=== PATIENT | female | born 1960 | race Caucasian/White ===

== ENCOUNTER 2021-03-12 18:51 | Inpatient (IN) | payer OTHER ==
[2021-03-12] MEDS ORDERED: HEPARIN NA (PORCINE) 5,000 UNITS/ML 1ML VIAL IVPUSH PRN ×2 (20:24)
[2021-03-12] MEDS ORDERED: ACETAMINOPHEN 325 MG TABLET (FP) PO ONE (20:29)
[2021-03-12] MEDS ORDERED: HEPARIN - 25,000 UNIT in SODIUM CHLORIDE 495 ML IV SCH (20:30)
[2021-03-12] MEDS ORDERED: HEPARIN NA (PORCINE) 5,000 UNITS/ML 1ML VIAL ONE (20:49)
[2021-03-12] MEDS ORDERED: ACETAMINOPHEN 325 MG TABLET (FP) ONE (20:49)
[2021-03-12] MEDS ORDERED: HEPARIN INFUSION - 25,000 UNITS/500 ML INFUS.BAG IVPB ONE (20:50)
[2021-03-12 21:45] LABS: BASO % 0.2 % (0-2.0); HEMATOCRIT 39.2 % (32.4-45.2); HEMOGLOBIN 13.3 GM/dL (10.7-15.3); LYMPH % 13.3 % (8-40); MCH 30.2 pg (25.7-33.7); MCHC 33.8 g/dl (32.0-36.0); MEAN CELL VOLUME 89.3 fl (80-96); MEAN PLT VOLUME 7.2 fl (7.5-11.1); NEUT % 79.5 % (42.8-82.8); PLATELET COUNT 431 K/MM3 (134-434); RDW 14.9 % (11.6-15.6); WHITE BLOOD COUNT 11.5 K/mm3 (4.0-10.0)
[2021-03-12 21:53] LABS: INR 1.07 (0.83-1.09); PROTHROMBIN TIME (PATIENT) 13.1 SEC (9.7-13.0)
[2021-03-12 21:59] LABS: ALBUMIN 3.6 g/dl (3.4-5.0)
[2021-03-12 22:00] LABS: BLOOD UREA NITROGEN 13.3 mg/dL (7-18); CALCIUM 9.4 mg/dL (8.5-10.1)
[2021-03-12 22:03] LABS: CREATININE 0.7 mg/dL (0.55-1.3)
[2021-03-12 22:04] LABS: BILIRUBIN,TOTAL 0.3 mg/dL (0.2-1)
[2021-03-12 22:05] LABS: TOT PROT 7.5 g/dl (6.4-8.2)
[2021-03-12] MEDS ORDERED: ACETAMINOPHEN 1000 MG/100 ML VIAL (NON FORMULARY) IVPB PRN (23:24)
[2021-03-12] MEDS ORDERED: HEPARIN INFUSION - 25,000 UNITS/500 ML INFUS.BAG IVPB SCH (23:34)
[2021-03-13 01:55] VITALS: BMI 28.9
[2021-03-13] MEDS ORDERED: HEPARIN NA (PORCINE) 5,000 UNITS/ML 1ML VIAL ONE (08:04)
[2021-03-13] MEDS ORDERED: LIDOCAINE HCL 1%, 10 MG/ML (20ML VIAL) ONE (08:04)
[2021-03-13] MEDS ORDERED: LIDOCAINE HCL/PF 2% SDV 5ML VIAL ONE (08:10)
[2021-03-13] MEDS ORDERED: ceFAZolin SODIUM 1 GM VIAL ONE ×2 (08:10→08:30)
[2021-03-13] MEDS ORDERED: PROPOFOL 20 ML ONE (08:11)
[2021-03-13] MEDS ORDERED: MIDAZOLAM HCL 2 MG/2 ML SINGLE DOSE VIAL ONE ×2 (08:11)
[2021-03-13 08:30] LABS: ALBUMIN 3.3 g/dl (3.4-5.0); BILIRUBIN,TOTAL 0.3 mg/dL (0.2-1); BLOOD UREA NITROGEN 12.5 mg/dL (7-18); CALCIUM 8.7 mg/dL (8.5-10.1); CREATININE 0.6 mg/dL (0.55-1.3); MAGNESIUM 2.1 mg/dL (1.8-2.4); PHOSPHOROUS 3.8 mg/dL (2.5-4.9); TOT PROT 6.8 g/dl (6.4-8.2)
[2021-03-13] MEDS ORDERED: ceFAZolin SODIUM 1 GM VIAL IVPB ONE (08:30)
[2021-03-13] MEDS ORDERED: APIXABAN 5 MG TABLET ONE (09:31)
[2021-03-13] MEDS ORDERED: ACETAMINOPHEN INJECTION 100 ML IVPB ONE (09:36)
[2021-03-13] MEDS ORDERED: ACETAMINOPHEN 1000 MG/100 ML VIAL (NON FORMULARY) IVPB ONE (09:37)
[2021-03-13] MEDS ORDERED: ONDANSETRON 4 MG/2 ML VIAL IVPUSH PRN (09:50)
[2021-03-13] MEDS ORDERED: amLODIPine BESYLATE 5 MG TABLET (FP) PO SCH (10:00)
[2021-03-13] MEDS ORDERED: LACTATED RINGERS SOLUTION 1,000 ML IV SCH (10:00)
[2021-03-13] MEDS ORDERED: CLOPIDOGREL BISULFATE 75 MG TABLET (FP) PO SCH (10:00)
[2021-03-13] MEDS ORDERED: ASPIRIN COATED 81 MG TABLET.EC PO SCH (10:00)
[2021-03-13] MEDS ORDERED: ONDANSETRON 4 MG/2 ML VIAL ONE (10:07)
[2021-03-13] MEDS ORDERED: HYDROmorphone HCl 2 MG/ML VIAL IVPUSH PRN (10:08)
[2021-03-13] MEDS: HYDROmorphone HCl 2 MG/ML VIAL IVPUSH PRN ×2 (10:11→10:26)
[2021-03-13] MEDS ORDERED: APIXABAN 5 MG TABLET PO SCH ×4 (10:15→22:00)
[2021-03-13] MEDS ORDERED: PT OWN MED DRAWER 7, Y5N ONE (10:33)
[2021-03-13] MEDS ORDERED: HEPARIN NA (PORCINE) 5,000 UNITS/ML 1ML VIAL IVPUSH PRN ×2 (13:47)
[2021-03-13] MEDS: ASPIRIN COATED 81 MG TABLET.EC PO SCH (14:14)
[2021-03-13] MEDS: amLODIPine BESYLATE 5 MG TABLET (FP) PO SCH (14:14)
[2021-03-13] MEDS: HEPARIN - 25,000 UNIT in SODIUM CHLORIDE 495 ML IV SCH (14:52)
[2021-03-13] MEDS: ACETAMINOPHEN 1000 MG/100 ML VIAL (NON FORMULARY) IVPB PRN ×2 (15:40→21:28)
[2021-03-13] MEDS ORDERED: MELATONIN 5 MG TABLETS PO ONE (20:52)
[2021-03-14] MEDS ORDERED: MORPHINE SULFATE 2 MG/ML VIAL IVPUSH ONE (00:40)
[2021-03-14] MEDS ORDERED: ACETAMINOPHEN 325 MG TABLET (FP) PO ONE (00:49)
[2021-03-14] MEDS ORDERED: ACETAMINOPHEN 1000 MG/100 ML VIAL (NON FORMULARY) IVPB ONE (05:37)
[2021-03-14 07:52] LABS: BASO % 0.3 % (0-2.0); EOS % 1.6 % (0-4.5); HEMATOCRIT 32.5 % (32.4-45.2); HEMOGLOBIN 11.4 GM/dL (10.7-15.3); LYMPH % 15.5 % (8-40); MCH 30.9 pg (25.7-33.7); MEAN CELL VOLUME 88.3 fl (80-96); MEAN PLT VOLUME 7.3 fl (7.5-11.1); MONO % 6.8 % (3.8-10.2); NEUT % 75.8 % (42.8-82.8); PLATELET COUNT 343 K/MM3 (134-434); RBC 3.68 M/mm3 (3.60-5.2); RDW 14.6 % (11.6-15.6); WHITE BLOOD COUNT 7.6 K/mm3 (4.0-10.0)
[2021-03-14 08:47] LABS: BILIRUBIN,TOTAL 0.5 mg/dL (0.2-1); BLOOD UREA NITROGEN 10.7 mg/dL (7-18); CREATININE 0.7 mg/dL (0.55-1.3); MAGNESIUM 1.8 mg/dL (1.8-2.4); TOT PROT 6.3 g/dl (6.4-8.2)
[2021-03-14] MEDS: amLODIPine BESYLATE 5 MG TABLET (FP) PO SCH (09:02)
[2021-03-14] MEDS: ASPIRIN COATED 81 MG TABLET.EC PO SCH (09:02)
[2021-03-14] MEDS: oxyCODONE HCL 5 MG TABLET PO PRN ×2 (14:11→20:00)
[2021-03-14] MEDS: HEPARIN - 25,000 UNIT in SODIUM CHLORIDE 495 ML IV SCH (15:53)
[2021-03-15] MEDS: oxyCODONE HCL 5 MG TABLET PO PRN ×2 (01:56→20:04)
[2021-03-15 08:05] LABS: HEMATOCRIT 32.5 % (32.4-45.2); HEMOGLOBIN 11.3 GM/dL (10.7-15.3); MCH 31.1 pg (25.7-33.7); MCHC 34.8 g/dl (32.0-36.0); MEAN CELL VOLUME 89.4 fl (80-96); MEAN PLT VOLUME 7.7 fl (7.5-11.1); PLATELET COUNT 329 K/MM3 (134-434); RBC 3.64 M/mm3 (3.60-5.2); RDW 14.7 % (11.6-15.6); WHITE BLOOD COUNT 7.7 K/mm3 (4.0-10.0)
[2021-03-15] MEDS: ASPIRIN COATED 81 MG TABLET.EC PO SCH (09:49)
[2021-03-15] MEDS: amLODIPine BESYLATE 5 MG TABLET (FP) PO SCH (09:49)
[2021-03-15 10:51] LABS: BLOOD UREA NITROGEN 11.6 mg/dL (7-18); CALCIUM 8.4 mg/dL (8.5-10.1)
[2021-03-15 10:54] LABS: CREATININE 0.6 mg/dL (0.55-1.3); PHOSPHOROUS 2.4 mg/dL (2.5-4.9)
[2021-03-15 10:56] LABS: BILIRUBIN,TOTAL 0.4 mg/dL (0.2-1); TOT PROT 6.1 g/dl (6.4-8.2)
[2021-03-15] MEDS: POLYETHYLENE GLYCOL 3350 119 GM BTL PO SCH (12:12)
[2021-03-15 12:46] LABS: ANISOCYTOSIS 0; MACROCYTOSIS 0; PLATELET ESTIMATE NORMAL
[2021-03-15] MEDS: HEPARIN - 25,000 UNIT in SODIUM CHLORIDE 495 ML IV SCH (17:15)
[2021-03-15] MEDS ORDERED: MELATONIN 5 MG TABLETS PO ONE (22:55)
[2021-03-16] MEDS: oxyCODONE HCL 5 MG TABLET PO PRN (03:38)
[2021-03-16 08:46] LABS: BASO % 0.4 % (0-2.0); HEMATOCRIT 33.3 % (32.4-45.2); HEMATOCRIT 33.5 % (32.4-45.2); HEMOGLOBIN 11.5 GM/dL (10.7-15.3); LYMPH % 31.1 % (8-40); MCH 30.8 pg (25.7-33.7); MCH 30.9 pg (25.7-33.7); MCHC 34.2 g/dl (32.0-36.0); MCHC 34.7 g/dl (32.0-36.0); MEAN CELL VOLUME 89.9 fl (80-96); MEAN PLT VOLUME 7.7 fl (7.5-11.1); MEAN PLT VOLUME 7.9 fl (7.5-11.1); MONO % 8.5 % (3.8-10.2); PLATELET COUNT 337 K/MM3 (134-434); PLATELET COUNT 341 K/MM3 (134-434); RBC 3.72 M/mm3 (3.60-5.2); RBC 3.74 M/mm3 (3.60-5.2); RDW 14.6 % (11.6-15.6); WHITE BLOOD COUNT 8.4 K/mm3 (4.0-10.0); WHITE BLOOD COUNT 8.6 K/mm3 (4.0-10.0)
[2021-03-16 09:09] LABS: CALCIUM 8.9 mg/dL (8.5-10.1)
[2021-03-16 09:10] LABS: BLOOD UREA NITROGEN 10.1 mg/dL (7-18); MAGNESIUM 2.1 mg/dL (1.8-2.4)
[2021-03-16 09:13] LABS: CREATININE 0.6 mg/dL (0.55-1.3)
[2021-03-16 09:14] LABS: BILIRUBIN,TOTAL 0.4 mg/dL (0.2-1); TOT PROT 6.4 g/dl (6.4-8.2)
[2021-03-16] MEDS ORDERED: GLYCERIN 1 RECTAL SUPPOSITORY, ADULT PR ONE (09:51)
[2021-03-16] MEDS: ASPIRIN COATED 81 MG TABLET.EC PO SCH (10:02)
[2021-03-16] MEDS: amLODIPine BESYLATE 5 MG TABLET (FP) PO SCH (10:02)
[2021-03-16] MEDS: POLYETHYLENE GLYCOL 3350 119 GM BTL PO SCH (10:02)
[2021-03-16] MEDS ORDERED: ACETAMINOPHEN 1000 MG/100 ML VIAL (NON FORMULARY) IVPB PRN (10:19)
[2021-03-16 11:56] LABS: INR 1.09 (0.83-1.09); PROTHROMBIN TIME (PATIENT) 13.4 SEC (9.7-13.0)
[2021-03-16 11:59] LABS: ACTIVATED PTT 59.1 SECONDS (25.2-36.5)
[2021-03-16] MEDS ORDERED: PT OWN MED DRAWER 7, Y5N ONE (17:28)
[2021-03-16] MEDS: WARFARIN NA 5 MG TABLET PO SCH (17:30)
[2021-03-16] MEDS ORDERED: DOCUSATE SODIUM 100 MG CAPSULE (FP) PO SCH (22:00)
[2021-03-16] MEDS ORDERED: MELATONIN 5 MG TABLETS PO ONE (23:30)
[2021-03-17 08:56] LABS: HEMATOCRIT 33.8 % (32.4-45.2); HEMOGLOBIN 11.6 GM/dL (10.7-15.3); MCH 30.6 pg (25.7-33.7); MCHC 34.3 g/dl (32.0-36.0); MEAN CELL VOLUME 89.2 fl (80-96); MEAN PLT VOLUME 7.5 fl (7.5-11.1); PLATELET COUNT 372 K/MM3 (134-434); RBC 3.79 M/mm3 (3.60-5.2); RDW 14.7 % (11.6-15.6); WHITE BLOOD COUNT 8.5 K/mm3 (4.0-10.0)
[2021-03-17 09:18] LABS: BLOOD UREA NITROGEN 8.7 mg/dL (7-18); CALCIUM 9.2 mg/dL (8.5-10.1); MAGNESIUM 2.2 mg/dL (1.8-2.4)
[2021-03-17 09:21] LABS: CREATININE 0.6 mg/dL (0.55-1.3)
[2021-03-17 09:22] LABS: BILIRUBIN,TOTAL 0.4 mg/dL (0.2-1); PHOSPHOROUS 3.4 mg/dL (2.5-4.9); TOT PROT 6.6 g/dl (6.4-8.2)
[2021-03-17 09:51] LABS: INR 1.15 (0.83-1.09); PROTHROMBIN TIME (PATIENT) 13.9 SEC (9.7-13.0)
[2021-03-17 09:54] LABS: ACTIVATED PTT 51.8 SECONDS (25.2-36.5)
[2021-03-17] MEDS: POLYETHYLENE GLYCOL 3350 119 GM BTL PO SCH (10:08)
[2021-03-17] MEDS: amLODIPine BESYLATE 5 MG TABLET (FP) PO SCH (10:23)
[2021-03-17] MEDS: ASPIRIN COATED 81 MG TABLET.EC PO SCH (10:23)
[2021-03-17] MEDS: HEPARIN - 25,000 UNIT in SODIUM CHLORIDE 495 ML IV SCH ×2 (10:31→17:37)
[2021-03-17] MEDS ORDERED: GLYCERIN 1 RECTAL SUPPOSITORY, ADULT PR ONE (16:52)
[2021-03-17] MEDS: WARFARIN NA 5 MG TABLET PO SCH (17:26)
[2021-03-17] MEDS ORDERED: PT OWN MED DRAWER 7, Y5N ONE (17:28)
[2021-03-17] MEDS: DOCUSATE SODIUM 100 MG CAPSULE (FP) PO SCH (21:12)
[2021-03-17] MEDS: oxyCODONE HCL 5 MG TABLET PO PRN (21:13)
[2021-03-18] MEDS: oxyCODONE HCL 5 MG TABLET PO PRN ×3 (03:00→20:35)
[2021-03-18 08:16] LABS: BASO % 0.6 % (0-2.0); EOS % 2.7 % (0-4.5); HEMATOCRIT 34.6 % (32.4-45.2); HEMOGLOBIN 11.9 GM/dL (10.7-15.3); LYMPH % 40.5 % (8-40); MCH 30.6 pg (25.7-33.7); MCHC 34.5 g/dl (32.0-36.0); MEAN CELL VOLUME 88.7 fl (80-96); MEAN PLT VOLUME 7.4 fl (7.5-11.1); MONO % 6.7 % (3.8-10.2); NEUT % 49.5 % (42.8-82.8); PLATELET COUNT 399 K/MM3 (134-434); RBC 3.91 M/mm3 (3.60-5.2); RDW 14.9 % (11.6-15.6); WHITE BLOOD COUNT 9.8 K/mm3 (4.0-10.0)
[2021-03-18 08:26] LABS: ALBUMIN 3.2 g/dl (3.4-5.0); BLOOD UREA NITROGEN 11.5 mg/dL (7-18)
[2021-03-18 08:27] LABS: CALCIUM 9.2 mg/dL (8.5-10.1); MAGNESIUM 2.2 mg/dL (1.8-2.4)
[2021-03-18 08:29] LABS: INR 1.82 (0.83-1.09)
[2021-03-18 08:30] LABS: CREATININE 0.6 mg/dL (0.55-1.3); PHOSPHOROUS 3.6 mg/dL (2.5-4.9)
[2021-03-18 08:31] LABS: BILIRUBIN,TOTAL 0.7 mg/dL (0.2-1); TOT PROT 6.9 g/dl (6.4-8.2)
[2021-03-18] MEDS: amLODIPine BESYLATE 5 MG TABLET (FP) PO SCH (09:30)
[2021-03-18] MEDS: ASPIRIN COATED 81 MG TABLET.EC PO SCH (09:30)
[2021-03-18] MEDS: POLYETHYLENE GLYCOL 3350 119 GM BTL PO SCH (09:30)
[2021-03-18] MEDS ORDERED: ACETAMINOPHEN 325 MG TABLET (FP) PO PRN (11:25)
[2021-03-18] MEDS: HEPARIN - 25,000 UNIT in SODIUM CHLORIDE 495 ML IV SCH (14:34)
[2021-03-18] MEDS ORDERED: WARFARIN NA 2 MG TABLET PO SCH (16:49)
[2021-03-18] MEDS: DOCUSATE SODIUM 100 MG CAPSULE (FP) PO SCH (21:03)
[2021-03-19] MEDS: oxyCODONE HCL 5 MG TABLET PO PRN (04:25)
[2021-03-19 08:42] LABS: BASO % 0.6 % (0-2.0); EOS % 2.8 % (0-4.5); HEMATOCRIT 34.7 % (32.4-45.2); LYMPH % 37.5 % (8-40); MCHC 34.5 g/dl (32.0-36.0); MEAN CELL VOLUME 90.1 fl (80-96); MEAN PLT VOLUME 7.4 fl (7.5-11.1); MONO % 7.1 % (3.8-10.2); PLATELET COUNT 425 K/MM3 (134-434); RBC 3.85 M/mm3 (3.60-5.2); RDW 15.1 % (11.6-15.6); WHITE BLOOD COUNT 8.6 K/mm3 (4.0-10.0)
[2021-03-19 08:43] LABS: INR 2.85 (0.83-1.09); PROTHROMBIN TIME (PATIENT) 33.5 SEC (9.7-13.0)
[2021-03-19 08:46] LABS: ACTIVATED PTT 93.3 SECONDS (25.2-36.5)
[2021-03-19 09:06] LABS: BLOOD UREA NITROGEN 12.1 mg/dL (7-18); MAGNESIUM 2.4 mg/dL (1.8-2.4)
[2021-03-19 09:07] LABS: ALBUMIN 3.3 g/dl (3.4-5.0); CALCIUM 9.7 mg/dL (8.5-10.1)
[2021-03-19 09:10] LABS: CREATININE 0.7 mg/dL (0.55-1.3); PHOSPHOROUS 4.1 mg/dL (2.5-4.9)
[2021-03-19 09:11] LABS: BILIRUBIN,TOTAL 0.9 mg/dL (0.2-1); TOT PROT 7.1 g/dl (6.4-8.2)
[2021-03-19] MEDS: ASPIRIN COATED 81 MG TABLET.EC PO SCH (09:35)
[2021-03-19] MEDS: amLODIPine BESYLATE 5 MG TABLET (FP) PO SCH (09:35)
[2021-03-19] MEDS: POLYETHYLENE GLYCOL 3350 119 GM BTL PO SCH (09:37)
[2021-03-19 10:29] VITALS: PULSE 66
[2021-03-19 16:20] VITALS: BP 144/76; TEMP 98.4
== END 2021-03-19 17:30 | disposition home or self-care (01) | DRG 181 ==
LOC: JER 18:51 → JERBED 22:41 → J8W 03-13 01:24
PROVIDERS: ADMIT Hospitalist; ATTEND Internal Medicine
PROC: 3E03317 Introduction of Other Thrombolytic into Peripheral Vein, Percutaneous Approach (ICD-10-PCS; 2021-03-13)
PROC: B41DZZZ Fluoroscopy of Aorta and Bilateral Lower Extremity Arteries (ICD-10-PCS; 2021-03-13)
PROC: X27J385 Dilation of Left Femoral Artery with Sustained Release Drug-eluting Intraluminal Device, Percutaneous Approach, New Technology Group 5 (ICD-10-PCS; principal; 2021-03-13 08:00)
DX: T82.856A Stenosis of peripheral vascular stent, initial encounter (principal); E78.5 Hyperlipidemia, unspecified; I73.9 Peripheral vascular disease, unspecified; D72.829 Elevated white blood cell count, unspecified; M62.262 Nontraumatic ischemic infarction of muscle, left lower leg; R74.01 Elevation of levels of liver transaminase levels; F17.210 Nicotine dependence, cigarettes, uncomplicated; I10 Essential (primary) hypertension; K59.00 Constipation, unspecified; I77.1 Stricture of artery; Y83.9 Surgical procedure, unspecified as the cause of abnormal reaction of the patient, or of later complication, without mention of misadventure at the time of the procedure
CPT/HCPCS: 36415; 71045-TC-FY; 76000-TC-FY; 80053; 82272; 83605; 83735; 84100; 85025; 85027; 85610; 85730; 86850; 86900; 86901; 93005; 93010; 94760; 97116-GP; 97161-GP; 99285-25; C9803; J0131; J1644; U0003; U0005

== ENCOUNTER 2022-03-23 14:37 | Inpatient (IN) | payer OTHER ==
[2022-03-23] MEDS ORDERED: HEPARIN NA (PORCINE) 5,000 UNITS/ML 1ML VIAL IVPUSH ONE (16:14)
[2022-03-23] MEDS ORDERED: HEPARIN NA (PORCINE) 5,000 UNITS/ML 1ML VIAL IVPUSH PRN ×2 (16:14)
[2022-03-23] MEDS ORDERED: ACETAMINOPHEN 325 MG TABLET (FP) PO ONE (17:01)
[2022-03-23 17:02] LABS: BASO % 0.5 % (0-2.0); EOS % 0.3 % (0-4.5); HEMATOCRIT 39.2 % (32.4-45.2); HEMOGLOBIN 12.9 GM/dL (10.7-15.3); LYMPH % 26.5 % (8-40); MCH 28.4 pg (25.7-33.7); MCHC 32.8 g/dl (32.0-36.0); MEAN CELL VOLUME 86.6 fl (80-96); MEAN PLT VOLUME 7.3 fl (7.5-11.1); NEUT % 65.7 % (42.8-82.8); PLATELET COUNT 329 10^3/uL (134-434); RBC 4.53 M/mm3 (3.60-5.2); RDW 15.9 % (11.6-15.6); WHITE BLOOD COUNT 7.7 K/mm3 (4.0-10.0)
[2022-03-23] MEDS ORDERED: HEPARIN INFUSION - 25,000 UNITS/500 ML INFUS.BAG IVPB ONE (17:07)
[2022-03-23 17:09] LABS: CALCIUM 9.1 mg/dL (8.5-10.1)
[2022-03-23 17:10] LABS: ALBUMIN 3.7 g/dl (3.4-5.0); BLOOD UREA NITROGEN 16.4 mg/dL (7-18)
[2022-03-23 17:12] LABS: INR 2.44 (0.83-1.09); PROTHROMBIN TIME (PATIENT) 28.3 SEC (9.7-13.0)
[2022-03-23 17:14] LABS: ACTIVATED PTT 49.2 SECONDS (25.2-36.5); TOT PROT 7.4 g/dl (6.4-8.2)
[2022-03-23] MEDS: HEPARIN INFUSION - 25,000 UNITS/500 ML INFUS.BAG IVPB SCH (17:14)
[2022-03-23 17:15] LABS: BILIRUBIN,TOTAL 0.3 mg/dL (0.2-1)
[2022-03-23] MEDS ORDERED: HEPARIN NA (PORCINE) 5,000 UNITS/ML 1ML VIAL ONE (17:44)
[2022-03-23] MEDS ORDERED: ACETAMINOPHEN 325 MG TABLET (FP) ONE (17:44)
[2022-03-23] MEDS ORDERED: POLYETHYLENE GLYCOL (HEALTHYLAX) 3350 17 GM PACKET PO PRN (22:27)
[2022-03-24] MEDS ORDERED: GABAPENTIN 100 MG CAPSULE ONE ×2 (01:32→10:17)
[2022-03-24] MEDS ORDERED: busPIRone HCL 5 MG TABLET ONE ×2 (01:32→10:16)
[2022-03-24] MEDS: GABAPENTIN 100 MG CAPSULE PO SCH ×3 (01:34→21:39)
[2022-03-24] MEDS: busPIRone HCL 5 MG TABLET PO SCH ×3 (01:34→21:40)
[2022-03-24 07:20] LABS: HEMATOCRIT 35.8 % (32.4-45.2); HEMOGLOBIN 12.1 GM/dL (10.7-15.3); MCHC 33.7 g/dl (32.0-36.0); MEAN CELL VOLUME 85.9 fl (80-96); MEAN PLT VOLUME 7.6 fl (7.5-11.1); PLATELET COUNT 321 10^3/uL (134-434); RBC 4.17 M/mm3 (3.60-5.2); RDW 15.5 % (11.6-15.6)
[2022-03-24 07:46] LABS: ALBUMIN 3.5 g/dl (3.4-5.0); MAGNESIUM 2.2 mg/dL (1.8-2.4)
[2022-03-24 07:48] LABS: BLOOD UREA NITROGEN 14.8 mg/dL (7-18)
[2022-03-24 07:49] LABS: CREATININE 0.8 mg/dL (0.55-1.3); PHOSPHOROUS 3.5 mg/dL (2.5-4.9)
[2022-03-24 07:50] LABS: BILIRUBIN,TOTAL 0.3 mg/dL (0.2-1); TOT PROT 6.9 g/dl (6.4-8.2)
[2022-03-24 08:39] LABS: INR 2.14 (0.83-1.09); PROTHROMBIN TIME (PATIENT) 24.8 SEC (9.7-13.0)
[2022-03-24 09:19] LABS: ACTIVATED PTT 147.1 SECONDS (25.2-36.5)
[2022-03-24] MEDS ORDERED: hydrOXYzine PAMOATE 50 MG CAPSULE (FP) PO SCH (10:00)
[2022-03-24] MEDS ORDERED: LISINOPRIL 10 MG TABLET PO SCH (10:00)
[2022-03-24] MEDS ORDERED: amLODIPine BESYLATE 10 MG TABLET (FP) ONE (10:16)
[2022-03-24] MEDS ORDERED: hydrOXYzine PAMOATE 50 MG CAPSULE (FP) ONE (10:16)
[2022-03-24] MEDS ORDERED: ASPIRIN COATED 81 MG TABLET.EC ONE (10:16)
[2022-03-24] MEDS ORDERED: LISINOPRIL 10 MG TABLET ONE (10:17)
[2022-03-24] MEDS ORDERED: ESCITALOPRAM OXALATE 10 MG TABLET ONE (10:17)
[2022-03-24] MEDS ORDERED: BACLOFEN 10 MG TABLET (FP) ONE (10:17)
[2022-03-24] MEDS: ASPIRIN COATED 81 MG TABLET.EC PO SCH (10:37)
[2022-03-24] MEDS: ESCITALOPRAM OXALATE 10 MG TABLET PO SCH (10:37)
[2022-03-24] MEDS: BACLOFEN 10 MG TABLET (FP) PO SCH (10:37)
[2022-03-24] MEDS: CILOSTAZOL 50 MG TABLET PO SCH (10:38)
[2022-03-24] MEDS: amLODIPine BESYLATE 5 MG TABLET (FP) PO SCH (10:38)
[2022-03-24] MEDS ORDERED: POLYETHYLENE GLYCOL (HEALTHYLAX) 3350 17 GM PACKET ONE (16:42)
[2022-03-24] MEDS ORDERED: ACETAMINOPHEN 1000 MG/100 ML BAG IVPB ONE (17:04)
[2022-03-24] MEDS ORDERED: LISINOPRIL 20 MG TABLET PO SCH (17:19)
[2022-03-24] MEDS: ATORVASTATIN CA 40 MG TABLET (FP) PO SCH (21:40)
[2022-03-25] MEDS: HEPARIN INFUSION - 25,000 UNITS/500 ML INFUS.BAG IVPB SCH ×2 (04:27→17:03)
[2022-03-25] MEDS ORDERED: DOCUSATE SODIUM 100 MG CAPSULE (FP) PO ONE (09:10)
[2022-03-25] MEDS: ASPIRIN COATED 81 MG TABLET.EC PO SCH (09:30)
[2022-03-25] MEDS: ESCITALOPRAM OXALATE 10 MG TABLET PO SCH (09:30)
[2022-03-25] MEDS: GABAPENTIN 100 MG CAPSULE PO SCH ×2 (09:31→21:17)
[2022-03-25] MEDS: busPIRone HCL 5 MG TABLET PO SCH ×2 (09:31→21:18)
[2022-03-25] MEDS: amLODIPine BESYLATE 5 MG TABLET (FP) PO SCH (09:32)
[2022-03-25] MEDS: BACLOFEN 10 MG TABLET (FP) PO SCH (09:32)
[2022-03-25] MEDS: CILOSTAZOL 50 MG TABLET PO SCH (09:34)
[2022-03-25 10:03] LABS: INR 1.45 (0.83-1.09); PROTHROMBIN TIME (PATIENT) 16.7 SEC (9.7-13.0)
[2022-03-25 10:06] LABS: HEMOGLOBIN 13.4 GM/dL (10.7-15.3); MCH 28.8 pg (25.7-33.7); MCHC 33.6 g/dl (32.0-36.0); MEAN CELL VOLUME 85.9 fl (80-96); MEAN PLT VOLUME 7.6 fl (7.5-11.1); PLATELET COUNT 329 10^3/uL (134-434); RBC 4.65 M/mm3 (3.60-5.2); RDW 15.5 % (11.6-15.6); WHITE BLOOD COUNT 5.8 K/mm3 (4.0-10.0)
[2022-03-25 10:18] LABS: CALCIUM 9.7 mg/dL (8.5-10.1)
[2022-03-25 10:19] LABS: BLOOD UREA NITROGEN 15.8 mg/dL (7-18); MAGNESIUM 2.2 mg/dL (1.8-2.4)
[2022-03-25 10:21] LABS: PHOSPHOROUS 3.4 mg/dL (2.5-4.9)
[2022-03-25] MEDS: POLYETHYLENE GLYCOL (HEALTHYLAX) 3350 17 GM PACKET PO SCH (10:21)
[2022-03-25 10:22] LABS: CREATININE 0.8 mg/dL (0.55-1.3)
[2022-03-25] MEDS: ATORVASTATIN CA 40 MG TABLET (FP) PO SCH (21:18)
[2022-03-25] MEDS ORDERED: LISINOPRIL 20 MG TABLET PO SCH (22:00)
[2022-03-25] MEDS ORDERED: SENNOSIDES 8.6MG TABLET (FP) PO SCH (22:00)
[2022-03-26] MEDS: HEPARIN INFUSION - 25,000 UNITS/500 ML INFUS.BAG IVPB SCH ×2 (05:34→11:23)
[2022-03-26] MEDS ORDERED: LIDOCAINE HCL 1%, 10 MG/ML (20ML VIAL) ONE (08:36)
[2022-03-26] MEDS ORDERED: HEPARIN NA (PORCINE) 5,000 UNITS/ML 1ML VIAL ONE ×2 (08:36→11:11)
[2022-03-26 08:58] LABS: HEMATOCRIT 40.2 % (32.4-45.2); HEMOGLOBIN 13.5 GM/dL (10.7-15.3); MCH 28.8 pg (25.7-33.7); MCHC 33.5 g/dl (32.0-36.0); MEAN PLT VOLUME 7.5 fl (7.5-11.1); PLATELET COUNT 328 10^3/uL (134-434); RBC 4.68 M/mm3 (3.60-5.2); RDW 15.7 % (11.6-15.6); WHITE BLOOD COUNT 6.5 K/mm3 (4.0-10.0)
[2022-03-26 09:00] LABS: INR 1.19 (0.83-1.09); PROTHROMBIN TIME (PATIENT) 13.7 SEC (9.7-13.0)
[2022-03-26] MEDS ORDERED: ONDANSETRON 4 MG/2 ML VIAL IVPUSH PRN ×2 (09:02→12:05)
[2022-03-26] MEDS ORDERED: LACTATED RINGERS SOLUTION 1,000 ML IV SCH (09:15)
[2022-03-26] MEDS ORDERED: MIDAZOLAM HCL 2 MG/2 ML SINGLE DOSE VIAL ONE (09:18)
[2022-03-26] MEDS ORDERED: PROPOFOL 20 ML ONE ×3 (09:19→10:39)
[2022-03-26] MEDS ORDERED: ceFAZolin SODIUM 1 GM VIAL IVPB ONE (09:20)
[2022-03-26 09:23] LABS: BLOOD UREA NITROGEN 17.1 mg/dL (7-18); CALCIUM 9.9 mg/dL (8.5-10.1)
[2022-03-26 09:27] LABS: CREATININE 0.8 mg/dL (0.55-1.3)
[2022-03-26] MEDS ORDERED: LIDOCAINE HCL 1%, 10 MG/ML (50 mL VIAL) INF ONE (09:33)
[2022-03-26] MEDS ORDERED: HEPARIN INFUSION - 25,000 UNITS/500 ML INFUS.BAG IVPB ONE (11:13)
[2022-03-26] MEDS ORDERED: FENTANYL CITRATE/PF 50 MCG/ML VIAL ONE ×2 (11:24→12:02)
[2022-03-26] MEDS ORDERED: HEPARIN NA (PORCINE) 5,000 UNITS/ML 1ML VIAL IVPUSH PRN (11:39)
[2022-03-26] MEDS: LACTATED RINGERS SOLUTION 1,000 ML IV SCH (13:01)
[2022-03-26] MEDS: ASPIRIN COATED 81 MG TABLET.EC PO SCH (13:02)
[2022-03-26] MEDS: POLYETHYLENE GLYCOL (HEALTHYLAX) 3350 17 GM PACKET PO SCH (13:02)
[2022-03-26] MEDS: busPIRone HCL 5 MG TABLET PO SCH ×2 (13:02→21:56)
[2022-03-26] MEDS: amLODIPine BESYLATE 5 MG TABLET (FP) PO SCH (13:03)
[2022-03-26] MEDS: BACLOFEN 10 MG TABLET (FP) PO SCH (13:03)
[2022-03-26] MEDS: CILOSTAZOL 50 MG TABLET PO SCH (13:07)
[2022-03-26] MEDS: ESCITALOPRAM OXALATE 10 MG TABLET PO SCH (13:07)
[2022-03-26] MEDS: GABAPENTIN 100 MG CAPSULE PO SCH ×2 (13:07→21:55)
[2022-03-26] MEDS: ONDANSETRON *ODT* 4 MG TABLET SL PRN (21:55)
[2022-03-26] MEDS: ATORVASTATIN CA 40 MG TABLET (FP) PO SCH (21:55)
[2022-03-26] MEDS: SENNOSIDES 8.6MG TABLET (FP) PO SCH (21:56)
[2022-03-26] MEDS: LISINOPRIL 20 MG TABLET PO SCH (21:56)
[2022-03-27] MEDS ORDERED: ACETAMINOPHEN 1000 MG/100 ML BAG IVPB ONE (03:55)
[2022-03-27] MEDS: HEPARIN NA (PORCINE) 5,000 UNITS/ML 1ML VIAL IVPUSH PRN ×2 (04:21→16:58)
[2022-03-27 08:21] LABS: INR 1.16 (0.83-1.09); PROTHROMBIN TIME (PATIENT) 13.4 SEC (9.7-13.0)
[2022-03-27 08:29] LABS: BASO % 0.5 % (0-2.0); HEMATOCRIT 34.6 % (32.4-45.2); HEMOGLOBIN 11.8 GM/dL (10.7-15.3); LYMPH % 25.4 % (8-40); MCH 29.3 pg (25.7-33.7); MEAN CELL VOLUME 86.1 fl (80-96); MEAN PLT VOLUME 7.8 fl (7.5-11.1); MONO % 7.2 % (3.8-10.2); NEUT % 64.9 % (42.8-82.8); PLATELET COUNT 277 10^3/uL (134-434); RBC 4.02 M/mm3 (3.60-5.2); RDW 15.5 % (11.6-15.6); WHITE BLOOD COUNT 7.8 K/mm3 (4.0-10.0)
[2022-03-27 08:32] LABS: ALBUMIN 3.4 g/dl (3.4-5.0); BLOOD UREA NITROGEN 11.6 mg/dL (7-18); CALCIUM 8.9 mg/dL (8.5-10.1)
[2022-03-27 08:35] LABS: CREATININE 0.7 mg/dL (0.55-1.3)
[2022-03-27 08:37] LABS: BILIRUBIN,TOTAL 0.4 mg/dL (0.2-1); TOT PROT 6.3 g/dl (6.4-8.2)
[2022-03-27] MEDS: ONDANSETRON *ODT* 4 MG TABLET SL PRN (09:26)
[2022-03-27] MEDS: amLODIPine BESYLATE 5 MG TABLET (FP) PO SCH (10:58)
[2022-03-27] MEDS: POLYETHYLENE GLYCOL (HEALTHYLAX) 3350 17 GM PACKET PO SCH (11:00)
[2022-03-27] MEDS: ESCITALOPRAM OXALATE 10 MG TABLET PO SCH (11:00)
[2022-03-27] MEDS: ASPIRIN COATED 81 MG TABLET.EC PO SCH (11:00)
[2022-03-27] MEDS: busPIRone HCL 5 MG TABLET PO SCH ×2 (11:00→22:19)
[2022-03-27] MEDS: BACLOFEN 10 MG TABLET (FP) PO SCH (11:00)
[2022-03-27] MEDS: GABAPENTIN 100 MG CAPSULE PO SCH ×2 (11:01→22:19)
[2022-03-27] MEDS: CILOSTAZOL 50 MG TABLET PO SCH (11:01)
[2022-03-27] MEDS ORDERED: ACETAMINOPHEN 1000 MG/100 ML BAG IVPB PRN (11:25)
[2022-03-27] MEDS: LACTATED RINGERS SOLUTION 1,000 ML IV SCH (13:43)
[2022-03-27] MEDS: HEPARIN INFUSION - 25,000 UNITS/500 ML INFUS.BAG IVPB SCH ×2 (13:44→16:58)
[2022-03-27] MEDS: ATORVASTATIN CA 40 MG TABLET (FP) PO SCH (22:19)
[2022-03-27] MEDS: LISINOPRIL 20 MG TABLET PO SCH (22:19)
[2022-03-27] MEDS: SENNOSIDES 8.6MG TABLET (FP) PO SCH (22:19)
[2022-03-28] MEDS: BACLOFEN 10 MG TABLET (FP) PO SCH (08:59)
[2022-03-28] MEDS: ESCITALOPRAM OXALATE 10 MG TABLET PO SCH (08:59)
[2022-03-28] MEDS: ASPIRIN COATED 81 MG TABLET.EC PO SCH (08:59)
[2022-03-28] MEDS: busPIRone HCL 5 MG TABLET PO SCH ×2 (08:59→22:11)
[2022-03-28] MEDS: GABAPENTIN 100 MG CAPSULE PO SCH ×2 (09:00→22:10)
[2022-03-28] MEDS: amLODIPine BESYLATE 5 MG TABLET (FP) PO SCH (09:00)
[2022-03-28] MEDS: POLYETHYLENE GLYCOL (HEALTHYLAX) 3350 17 GM PACKET PO SCH (09:03)
[2022-03-28] MEDS: CILOSTAZOL 50 MG TABLET PO SCH (09:05)
[2022-03-28 09:33] LABS: HEMATOCRIT 36.3 % (32.4-45.2); HEMOGLOBIN 12.1 GM/dL (10.7-15.3); MCH 28.7 pg (25.7-33.7); MCHC 33.3 g/dl (32.0-36.0); MEAN CELL VOLUME 86.1 fl (80-96); MEAN PLT VOLUME 7.3 fl (7.5-11.1); PLATELET COUNT 268 10^3/uL (134-434); RBC 4.21 M/mm3 (3.60-5.2); RDW 15.3 % (11.6-15.6); WHITE BLOOD COUNT 6.8 K/mm3 (4.0-10.0)
[2022-03-28 09:38] LABS: BASO % 0.4 % (0-2.0); EOS % 1.6 % (0-4.5); HEMATOCRIT 36.4 % (32.4-45.2); HEMOGLOBIN 12.1 GM/dL (10.7-15.3); LYMPH % 29.5 % (8-40); MCH 28.6 pg (25.7-33.7); MCHC 33.2 g/dl (32.0-36.0); MEAN PLT VOLUME 7.3 fl (7.5-11.1); NEUT % 61.5 % (42.8-82.8); PLATELET COUNT 269 10^3/uL (134-434); RBC 4.23 M/mm3 (3.60-5.2); RDW 15.4 % (11.6-15.6); WHITE BLOOD COUNT 6.8 K/mm3 (4.0-10.0)
[2022-03-28 10:05] LABS: ALBUMIN 3.6 g/dl (3.4-5.0); BLOOD UREA NITROGEN 11.2 mg/dL (7-18); CALCIUM 9.3 mg/dL (8.5-10.1)
[2022-03-28 10:08] LABS: CREATININE 0.9 mg/dL (0.55-1.3)
[2022-03-28 10:09] LABS: PHOSPHOROUS 3.3 mg/dL (2.5-4.9)
[2022-03-28 10:10] LABS: BILIRUBIN,TOTAL 0.5 mg/dL (0.2-1)
[2022-03-28] MEDS: HEPARIN INFUSION - 25,000 UNITS/500 ML INFUS.BAG IVPB SCH (18:30)
[2022-03-28] MEDS: LACTATED RINGERS SOLUTION 1,000 ML IV SCH (18:37)
[2022-03-28] MEDS: ATORVASTATIN CA 40 MG TABLET (FP) PO SCH (22:10)
[2022-03-28] MEDS ORDERED: MELATONIN 5 MG TABLETS PO ONE ×2 (22:11→22:30)
[2022-03-28] MEDS: SENNOSIDES 8.6MG TABLET (FP) PO SCH (22:12)
[2022-03-28] MEDS: LISINOPRIL 20 MG TABLET PO SCH (22:12)
[2022-03-29 08:31] LABS: BASO % 0.4 % (0-2.0); EOS % 1.6 % (0-4.5); HEMATOCRIT 34.5 % (32.4-45.2); HEMOGLOBIN 11.7 GM/dL (10.7-15.3); MCH 29.4 pg (25.7-33.7); MCHC 33.9 g/dl (32.0-36.0); MEAN CELL VOLUME 86.8 fl (80-96); MEAN PLT VOLUME 7.7 fl (7.5-11.1); MONO % 6.5 % (3.8-10.2); NEUT % 56.5 % (42.8-82.8); PLATELET COUNT 254 10^3/uL (134-434); RBC 3.97 M/mm3 (3.60-5.2); RDW 15.5 % (11.6-15.6); WHITE BLOOD COUNT 6.5 K/mm3 (4.0-10.0)
[2022-03-29 08:51] LABS: CALCIUM 9.1 mg/dL (8.5-10.1)
[2022-03-29 08:52] LABS: ALBUMIN 3.2 g/dl (3.4-5.0); BLOOD UREA NITROGEN 10.4 mg/dL (7-18)
[2022-03-29 08:55] LABS: CREATININE 0.8 mg/dL (0.55-1.3)
[2022-03-29 08:56] LABS: BILIRUBIN,TOTAL 0.5 mg/dL (0.2-1); TOT PROT 6.4 g/dl (6.4-8.2)
[2022-03-29] MEDS: POLYETHYLENE GLYCOL (HEALTHYLAX) 3350 17 GM PACKET PO SCH (09:18)
[2022-03-29] MEDS: busPIRone HCL 5 MG TABLET PO SCH ×2 (09:19→23:36)
[2022-03-29] MEDS: amLODIPine BESYLATE 5 MG TABLET (FP) PO SCH (09:19)
[2022-03-29] MEDS: BACLOFEN 10 MG TABLET (FP) PO SCH ×2 (09:19→09:28)
[2022-03-29] MEDS: ASPIRIN COATED 81 MG TABLET.EC PO SCH ×2 (09:19→09:25)
[2022-03-29] MEDS: ESCITALOPRAM OXALATE 10 MG TABLET PO SCH ×2 (09:19→09:28)
[2022-03-29] MEDS: GABAPENTIN 100 MG CAPSULE PO SCH ×3 (09:19→23:37)
[2022-03-29] MEDS: CILOSTAZOL 50 MG TABLET PO SCH (09:28)
[2022-03-29] MEDS: LACTATED RINGERS SOLUTION 1,000 ML IV SCH (12:55)
[2022-03-29 13:11] LABS: HEMOGLOBIN 12.1 GM/dL (10.7-15.3); MCH 29.1 pg (25.7-33.7); MCHC 33.6 g/dl (32.0-36.0); MEAN CELL VOLUME 86.6 fl (80-96); MEAN PLT VOLUME 7.3 fl (7.5-11.1); PLATELET COUNT 260 10^3/uL (134-434); RBC 4.16 M/mm3 (3.60-5.2); RDW 15.5 % (11.6-15.6); WHITE BLOOD COUNT 6.6 K/mm3 (4.0-10.0)
[2022-03-29] MEDS: HEPARIN INFUSION - 25,000 UNITS/500 ML INFUS.BAG IVPB SCH ×2 (14:04→20:35)
[2022-03-29] MEDS ORDERED: MIDAZOLAM HCL 2 MG/2 ML SINGLE DOSE VIAL ONE ×2 (15:01→18:08)
[2022-03-29] MEDS ORDERED: ROCURONIUM BROMIDE 100 MG/10 ML VIAL ONE ×2 (15:02→17:42)
[2022-03-29] MEDS ORDERED: GLYCOPYRROLATE 0.2 MG/1 ML VIAL ONE ×3 (15:02→18:17)
[2022-03-29] MEDS ORDERED: ePHEDrine SULFATE 50 MG/1 ML AMPULE ONE (15:02)
[2022-03-29] MEDS ORDERED: SODIUM CHLORIDE 0.9% P/F 10 ML VIAL IJ ONE (15:03)
[2022-03-29] MEDS ORDERED: PROPOFOL 20 ML ONE ×2 (15:04)
[2022-03-29] MEDS ORDERED: LIDOCAINE HCL/PF 2% SDV 5ML VIAL ONE (15:06)
[2022-03-29] MEDS ORDERED: PHENYLEPHRINE HCL 10 MG/1 ML SINGLE DOSE VIAL ONE (15:24)
[2022-03-29] MEDS ORDERED: ceFAZolin SODIUM 1 GM VIAL ONE (15:32)
[2022-03-29] MEDS ORDERED: ceFAZolin SODIUM 1 GM VIAL IVPB ONE (15:35)
[2022-03-29] MEDS ORDERED: POVIDONE-IODINE OINTMENT 10% - 28.4 GM TUBE ONE (17:14)
[2022-03-29] MEDS ORDERED: HEPARIN NA (PORCINE) 5,000 UNITS/ML 1ML VIAL ONE (17:15)
[2022-03-29] MEDS ORDERED: KETAMINE HCL 200 MG/20 ML VIAL ONE (18:08)
[2022-03-29] MEDS ORDERED: NEOSTIGMINE METHYLSULFATE 0.5 MG/ML - 10 ML MDV ONE (18:17)
[2022-03-29] MEDS ORDERED: ONDANSETRON 4 MG/2 ML VIAL IVPUSH PRN ×2 (19:59→20:49)
[2022-03-29] MEDS ORDERED: HEPARIN NA (PORCINE) 5,000 UNITS/ML 1ML VIAL IVPUSH PRN ×2 (20:14)
[2022-03-29] MEDS ORDERED: HEPARIN INFUSION - 25,000 UNITS/500 ML INFUS.BAG IVPB ONE (20:29)
[2022-03-29] MEDS ORDERED: FENTANYL CITRATE/PF 50 MCG/ML VIAL ONE ×3 (20:29→20:45)
[2022-03-29] MEDS ORDERED: morphine SULFATE 4 MG/ML VIAL IVPUSH PRN (20:46)
[2022-03-29] MEDS: HYDROmorphone HCL CARPU-JECT 2 MG/1 ML DISP.SYRIN IVPUSH PRN ×2 (21:00→21:19)
[2022-03-29] MEDS ORDERED: HYDROmorphone HCl 2 MG/ML VIAL ONE (21:00)
[2022-03-29] MEDS ORDERED: HYDROmorphone HCl 2 MG/ML VIAL IVPUSH ONE (21:39)
[2022-03-29] MEDS ORDERED: SODIUM CHLORIDE 1,000 ML IV SCH (22:45)
[2022-03-29] MEDS: LISINOPRIL 20 MG TABLET PO SCH (23:36)
[2022-03-29] MEDS: SENNOSIDES 8.6MG TABLET (FP) PO SCH (23:36)
[2022-03-29] MEDS: CHLORHEXIDINE GLUCONATE 4% CLEANSER FOR DECOLONIZATION TP SCH (23:37)
[2022-03-29] MEDS: MUPIROCIN 2% TOPICAL OINTMENT FOR DECOLONIZATION NS SCH (23:37)
[2022-03-29] MEDS: ATORVASTATIN CA 40 MG TABLET (FP) PO SCH (23:37)
[2022-03-30 07:03] LABS: HEMATOCRIT 32.3 % (32.4-45.2); HEMOGLOBIN 10.9 GM/dL (10.7-15.3); MCH 29.2 pg (25.7-33.7); MCHC 33.8 g/dl (32.0-36.0); MEAN CELL VOLUME 86.2 fl (80-96); MEAN PLT VOLUME 7.5 fl (7.5-11.1); MONO % 8.6 % (3.8-10.2); NEUT % 80.4 % (42.8-82.8); PLATELET COUNT 207 10^3/uL (134-434); RBC 3.74 M/mm3 (3.60-5.2); RDW 15.5 % (11.6-15.6); WHITE BLOOD COUNT 11.3 K/mm3 (4.0-10.0)
[2022-03-30 07:16] LABS: ACTIVATED PTT 67.3 SECONDS (25.2-36.5)
[2022-03-30 07:22] LABS: ALBUMIN 2.9 g/dl (3.4-5.0); CALCIUM 8.5 mg/dL (8.5-10.1)
[2022-03-30 07:23] LABS: MAGNESIUM 1.8 mg/dL (1.8-2.4)
[2022-03-30 07:24] LABS: PHOSPHOROUS 3.8 mg/dL (2.5-4.9)
[2022-03-30 07:25] LABS: BILIRUBIN,TOTAL 0.4 mg/dL (0.2-1); CREATININE 0.7 mg/dL (0.55-1.3)
[2022-03-30 07:26] LABS: TOT PROT 6.1 g/dl (6.4-8.2)
[2022-03-30] MEDS ORDERED: TRIMETHOBENZAMIDE HCL 300 MG CAPSULE PO PRN (08:22)
[2022-03-30] MEDS: MUPIROCIN 2% TOPICAL OINTMENT FOR DECOLONIZATION NS SCH ×2 (09:34→21:28)
[2022-03-30] MEDS: amLODIPine BESYLATE 5 MG TABLET (FP) PO SCH (09:34)
[2022-03-30] MEDS: ACETAMINOPHEN 1000 MG/100 ML BAG IVPB PRN ×2 (09:34→17:41)
[2022-03-30] MEDS: busPIRone HCL 5 MG TABLET PO SCH ×3 (09:34→21:33)
[2022-03-30] MEDS: GABAPENTIN 100 MG CAPSULE PO SCH ×2 (09:35→21:27)
[2022-03-30] MEDS: POLYETHYLENE GLYCOL (HEALTHYLAX) 3350 17 GM PACKET PO SCH (09:36)
[2022-03-30] MEDS: BACLOFEN 10 MG TABLET (FP) PO SCH (09:36)
[2022-03-30] MEDS: ASPIRIN COATED 81 MG TABLET.EC PO SCH (09:36)
[2022-03-30] MEDS ORDERED: morphine SULFATE 4 MG/ML VIAL IVPUSH PRN (09:41)
[2022-03-30] MEDS ORDERED: ESCITALOPRAM OXALATE 10 MG TABLET PO SCH (10:00)
[2022-03-30] MEDS: CILOSTAZOL 50 MG TABLET PO SCH (10:05)
[2022-03-30 12:35] LABS: INR 1.19 (0.83-1.09); PROTHROMBIN TIME (PATIENT) 13.7 SEC (9.7-13.0)
[2022-03-30 13:43] LABS: INR 1.16 (0.83-1.09); PROTHROMBIN TIME (PATIENT) 13.4 SEC (9.7-13.0)
[2022-03-30] MEDS: WARFARIN NA 5 MG TABLET PO SCH (17:42)
[2022-03-30] MEDS ORDERED: ONDANSETRON 4 MG/2 ML VIAL IVPUSH PRN (20:15)
[2022-03-30] MEDS: HEPARIN INFUSION - 25,000 UNITS/500 ML INFUS.BAG IVPB SCH (21:26)
[2022-03-30] MEDS: LISINOPRIL 20 MG TABLET PO SCH (21:27)
[2022-03-30] MEDS: ATORVASTATIN CA 40 MG TABLET (FP) PO SCH (21:27)
[2022-03-30] MEDS: SENNOSIDES 8.6MG TABLET (FP) PO SCH (21:27)
[2022-03-30] MEDS: CHLORHEXIDINE GLUCONATE 4% CLEANSER FOR DECOLONIZATION TP SCH (21:28)
[2022-03-30] MEDS: MELATONIN 5 MG TABLETS PO PRN (23:26)
[2022-03-31] MEDS: ACETAMINOPHEN 1000 MG/100 ML BAG IVPB PRN ×2 (03:15→07:48)
[2022-03-31] MEDS ORDERED: MAG HYDROX/AL HYDROX/SIMETH 30 ML UNIT-DOSE CUP PO PRN (05:00)
[2022-03-31 06:49] LABS: HEMATOCRIT 25.9 % (32.4-45.2); HEMOGLOBIN 8.9 GM/dL (10.7-15.3); INR 1.17 (0.83-1.09); MCH 29.9 pg (25.7-33.7); MCHC 34.4 g/dl (32.0-36.0); MEAN PLT VOLUME 7.6 fl (7.5-11.1); PLATELET COUNT 181 10^3/uL (134-434); PROTHROMBIN TIME (PATIENT) 13.5 SEC (9.7-13.0); RBC 2.98 M/mm3 (3.60-5.2); RDW 15.9 % (11.6-15.6); WHITE BLOOD COUNT 10.3 K/mm3 (4.0-10.0)
[2022-03-31 07:07] LABS: ALBUMIN 2.8 g/dl (3.4-5.0)
[2022-03-31 07:09] LABS: BLOOD UREA NITROGEN 11.5 mg/dL (7-18); CALCIUM 8.5 mg/dL (8.5-10.1); MAGNESIUM 1.8 mg/dL (1.8-2.4)
[2022-03-31 07:12] LABS: CREATININE 0.7 mg/dL (0.55-1.3)
[2022-03-31 07:13] LABS: BILIRUBIN,TOTAL 0.4 mg/dL (0.2-1); TOT PROT 5.3 g/dl (6.4-8.2)
[2022-03-31] MEDS ORDERED: GLYCERIN 1 RECTAL SUPPOSITORY, ADULT RC ONE (08:30)
[2022-03-31] MEDS: busPIRone HCL 5 MG TABLET PO SCH ×2 (09:54→21:51)
[2022-03-31] MEDS: CILOSTAZOL 50 MG TABLET PO SCH (09:54)
[2022-03-31] MEDS: ASPIRIN COATED 81 MG TABLET.EC PO SCH (09:54)
[2022-03-31] MEDS: BACLOFEN 10 MG TABLET (FP) PO SCH (10:01)
[2022-03-31] MEDS: POLYETHYLENE GLYCOL (HEALTHYLAX) 3350 17 GM PACKET PO SCH (10:02)
[2022-03-31] MEDS: MUPIROCIN 2% TOPICAL OINTMENT FOR DECOLONIZATION NS SCH ×2 (10:02→21:51)
[2022-03-31] MEDS: LACTATED RINGERS SOLUTION 1,000 ML/1,000 ML INFUS.BAG IV SCH (10:05)
[2022-03-31 14:05] VITALS: BMI 30.6
[2022-03-31] MEDS ORDERED: LACTATED RINGERS SOLUTION 1000 ML INFUS.BAG IV ONE (14:21)
[2022-03-31] MEDS: ACETAMINOPHEN 325 MG TABLET (FP) PO PRN (17:01)
[2022-03-31] MEDS: WARFARIN NA 5 MG TABLET PO SCH (17:28)
[2022-03-31] MEDS: HEPARIN INFUSION - 25,000 UNITS/500 ML INFUS.BAG IVPB SCH (20:57)
[2022-03-31] MEDS: GABAPENTIN 100 MG CAPSULE PO SCH (21:51)
[2022-03-31] MEDS: SENNOSIDES 8.6MG TABLET (FP) PO SCH (21:51)
[2022-03-31] MEDS: ATORVASTATIN CA 40 MG TABLET (FP) PO SCH (21:51)
[2022-03-31] MEDS: CHLORHEXIDINE GLUCONATE 4% CLEANSER FOR DECOLONIZATION TP SCH (21:51)
[2022-03-31] MEDS: MELATONIN 5 MG TABLETS PO PRN (22:03)
[2022-04-01 07:50] LABS: HEMATOCRIT 25.9 % (32.4-45.2); HEMOGLOBIN 8.9 GM/dL (10.7-15.3); MCH 29.8 pg (25.7-33.7); MCHC 34.5 g/dl (32.0-36.0); MEAN CELL VOLUME 86.5 fl (80-96); MEAN PLT VOLUME 7.6 fl (7.5-11.1); PLATELET COUNT 190 10^3/uL (134-434); RBC 2.99 M/mm3 (3.60-5.2); RDW 15.8 % (11.6-15.6); WHITE BLOOD COUNT 10.3 K/mm3 (4.0-10.0)
[2022-04-01 07:58] LABS: INR 1.49 (0.83-1.09); PROTHROMBIN TIME (PATIENT) 17.2 SEC (9.7-13.0)
[2022-04-01 07:59] LABS: ACTIVATED PTT 56.7 SECONDS (25.2-36.5)
[2022-04-01] MEDS: ACETAMINOPHEN 325 MG TABLET (FP) PO PRN ×2 (08:02→20:25)
[2022-04-01] MEDS: HEPARIN INFUSION - 25,000 UNITS/500 ML INFUS.BAG IVPB SCH ×2 (08:12→17:58)
[2022-04-01 08:16] LABS: CALCIUM 8.5 mg/dL (8.5-10.1)
[2022-04-01 08:17] LABS: BLOOD UREA NITROGEN 8.5 mg/dL (7-18)
[2022-04-01 08:20] LABS: CREATININE 0.7 mg/dL (0.55-1.3); PHOSPHOROUS 2.9 mg/dL (2.5-4.9)
[2022-04-01] MEDS ORDERED: FAMOTIDINE 10 MG TABLET PO SCH (10:00)
[2022-04-01] MEDS: amLODIPine BESYLATE 5 MG TABLET (FP) PO SCH (10:23)
[2022-04-01] MEDS: POLYETHYLENE GLYCOL (HEALTHYLAX) 3350 17 GM PACKET PO SCH ×2 (10:25→21:25)
[2022-04-01] MEDS: busPIRone HCL 5 MG TABLET PO SCH ×2 (10:25→21:24)
[2022-04-01] MEDS: BACLOFEN 10 MG TABLET (FP) PO SCH ×2 (10:25→10:36)
[2022-04-01] MEDS: ASPIRIN COATED 81 MG TABLET.EC PO SCH (10:25)
[2022-04-01] MEDS: CILOSTAZOL 50 MG TABLET PO SCH ×2 (10:25→10:35)
[2022-04-01] MEDS: LACTATED RINGERS SOLUTION 1,000 ML/1,000 ML INFUS.BAG IV SCH ×2 (10:26→18:14)
[2022-04-01] MEDS: MUPIROCIN 2% TOPICAL OINTMENT FOR DECOLONIZATION NS SCH (10:26)
[2022-04-01] MEDS ORDERED: oxyCODONE HCL 5 MG TABLET PO PRN (12:16)
[2022-04-01] MEDS ORDERED: POLYETHYLENE GLYCOL (HEALTHYLAX) 3350 17 GM PACKET PO SCH (14:00)
[2022-04-01] MEDS: WARFARIN NA 5 MG TABLET PO SCH (17:16)
[2022-04-01] MEDS ORDERED: LACTATED RINGERS SOLUTION 1,000 ML/1,000 ML INFUS.BAG IV SCH (17:17)
[2022-04-01] MEDS ORDERED: MAG HYDROX/AL HYDROX/SIMETH 30 ML UNIT-DOSE CUP PO PRN (17:17)
[2022-04-01] MEDS ORDERED: HEPARIN NA (PORCINE) 5,000 UNITS/ML 1ML VIAL IVPUSH PRN ×2 (17:17)
[2022-04-01] MEDS ORDERED: ONDANSETRON 4 MG/2 ML VIAL IVPUSH PRN (17:17)
[2022-04-01] MEDS ORDERED: WARFARIN NA 5 MG TABLET PO SCH (18:00)
[2022-04-01] MEDS: ATORVASTATIN CA 40 MG TABLET (FP) PO SCH (21:24)
[2022-04-01] MEDS: FAMOTIDINE 10 MG TABLET PO SCH (21:24)
[2022-04-01] MEDS: LISINOPRIL 20 MG TABLET PO SCH (21:24)
[2022-04-01] MEDS: GABAPENTIN 100 MG CAPSULE PO SCH (21:24)
[2022-04-01] MEDS: SENNOSIDES 8.6MG TABLET (FP) PO SCH (21:24)
[2022-04-01] MEDS: MELATONIN 5 MG TABLETS PO PRN (21:25)
[2022-04-01] MEDS ORDERED: MUPIROCIN 2% TOPICAL OINTMENT FOR DECOLONIZATION NS SCH (22:00)
[2022-04-01] MEDS ORDERED: CHLORHEXIDINE GLUCONATE 4% CLEANSER FOR DECOLONIZATION TP SCH (22:00)
[2022-04-02] MEDS: POLYETHYLENE GLYCOL (HEALTHYLAX) 3350 17 GM PACKET PO SCH ×4 (05:27→21:35)
[2022-04-02] MEDS: ACETAMINOPHEN 325 MG TABLET (FP) PO PRN ×2 (05:46→14:19)
[2022-04-02] MEDS: HEPARIN INFUSION - 25,000 UNITS/500 ML INFUS.BAG IVPB SCH ×2 (07:30→17:44)
[2022-04-02] MEDS: ASPIRIN COATED 81 MG TABLET.EC PO SCH (09:22)
[2022-04-02] MEDS: FAMOTIDINE 10 MG TABLET PO SCH ×2 (09:22→21:26)
[2022-04-02] MEDS: busPIRone HCL 5 MG TABLET PO SCH ×3 (09:22→21:36)
[2022-04-02] MEDS: amLODIPine BESYLATE 10 MG TABLET (FP) PO SCH (09:22)
[2022-04-02] MEDS: CILOSTAZOL 50 MG TABLET PO SCH (09:23)
[2022-04-02] MEDS: BACLOFEN 10 MG TABLET (FP) PO SCH (09:23)
[2022-04-02 11:24] LABS: HEMATOCRIT 26.1 % (32.4-45.2); HEMOGLOBIN 8.9 GM/dL (10.7-15.3); MCH 29.6 pg (25.7-33.7); MCHC 34.1 g/dl (32.0-36.0); MEAN PLT VOLUME 7.8 fl (7.5-11.1); PLATELET COUNT 241 10^3/uL (134-434); RBC 3.01 M/mm3 (3.60-5.2); RDW 15.7 % (11.6-15.6); WHITE BLOOD COUNT 8.8 K/mm3 (4.0-10.0)
[2022-04-02 11:30] LABS: INR 1.88 (0.83-1.09); PROTHROMBIN TIME (PATIENT) 21.7 SEC (9.7-13.0)
[2022-04-02 11:33] LABS: ACTIVATED PTT 59.8 SECONDS (25.2-36.5)
[2022-04-02] MEDS ORDERED: MAGNESIUM HYDROX 2400MG/30ML ORAL SUSPENSION 30 ML CUP PO ONE (12:15)
[2022-04-02] MEDS ORDERED: GLYCERIN 1 RECTAL SUPPOSITORY, ADULT RC ONE (12:15)
[2022-04-02] MEDS: LACTATED RINGERS SOLUTION 1,000 ML/1,000 ML INFUS.BAG IV SCH (17:49)
[2022-04-02] MEDS ORDERED: KETOROLAC TROMETHAMINE 30 MG/1 ML VIAL IVPUSH ONE (17:58)
[2022-04-02] MEDS ORDERED: WARFARIN NA 5 MG TABLET PO SCH (18:00)
[2022-04-02] MEDS: ACETAMINOPHEN 1000 MG/100 ML BAG IVPB PRN (18:03)
[2022-04-02] MEDS: SENNOSIDES 8.6MG TABLET (FP) PO SCH ×2 (21:25→21:36)
[2022-04-02] MEDS: MELATONIN 5 MG TABLETS PO PRN (21:25)
[2022-04-02] MEDS: GABAPENTIN 100 MG CAPSULE PO SCH (21:26)
[2022-04-02] MEDS: LISINOPRIL 20 MG TABLET PO SCH (21:26)
[2022-04-02] MEDS: ATORVASTATIN CA 40 MG TABLET (FP) PO SCH (21:26)
[2022-04-03] MEDS: ACETAMINOPHEN 1000 MG/100 ML BAG IVPB PRN ×3 (06:13→22:05)
[2022-04-03 06:34] LABS: INR 2.33 (0.83-1.09)
[2022-04-03 06:37] LABS: ACTIVATED PTT 70.5 SECONDS (25.2-36.5)
[2022-04-03] MEDS: HEPARIN INFUSION - 25,000 UNITS/500 ML INFUS.BAG IVPB SCH (06:40)
[2022-04-03] MEDS: amLODIPine BESYLATE 10 MG TABLET (FP) PO SCH (09:36)
[2022-04-03] MEDS: FAMOTIDINE 10 MG TABLET PO SCH ×2 (09:36→21:26)
[2022-04-03] MEDS: ASPIRIN COATED 81 MG TABLET.EC PO SCH (09:36)
[2022-04-03] MEDS: busPIRone HCL 5 MG TABLET PO SCH ×2 (09:36→21:26)
[2022-04-03] MEDS: BACLOFEN 10 MG TABLET (FP) PO SCH (09:37)
[2022-04-03] MEDS: POLYETHYLENE GLYCOL (HEALTHYLAX) 3350 17 GM PACKET PO SCH ×3 (09:37→21:26)
[2022-04-03] MEDS: CILOSTAZOL 50 MG TABLET PO SCH (09:39)
[2022-04-03 09:45] LABS: BASO % 0.6 % (0-2.0); EOS % 1.6 % (0-4.5); HEMOGLOBIN 8.5 GM/dL (10.7-15.3); LYMPH % 30.5 % (8-40); MCH 29.5 pg (25.7-33.7); MCHC 34.2 g/dl (32.0-36.0); MEAN CELL VOLUME 86.3 fl (80-96); MEAN PLT VOLUME 7.5 fl (7.5-11.1); MONO % 8.7 % (3.8-10.2); NEUT % 58.6 % (42.8-82.8); PLATELET COUNT 264 10^3/uL (134-434); RBC 2.89 M/mm3 (3.60-5.2); RDW 15.9 % (11.6-15.6); WHITE BLOOD COUNT 7.2 K/mm3 (4.0-10.0)
[2022-04-03 10:18] LABS: CALCIUM 8.7 mg/dL (8.5-10.1)
[2022-04-03 10:19] LABS: ALBUMIN 2.7 g/dl (3.4-5.0); BLOOD UREA NITROGEN 8.8 mg/dL (7-18); MAGNESIUM 2.2 mg/dL (1.8-2.4)
[2022-04-03 10:22] LABS: CREATININE 0.7 mg/dL (0.55-1.3)
[2022-04-03 10:23] LABS: BILIRUBIN,TOTAL 0.5 mg/dL (0.2-1); TOT PROT 5.8 g/dl (6.4-8.2)
[2022-04-03] MEDS: WARFARIN NA 2 MG TABLET PO SCH (17:45)
[2022-04-03] MEDS: LACTATED RINGERS SOLUTION 1,000 ML/1,000 ML INFUS.BAG IV SCH (19:57)
[2022-04-03] MEDS: LISINOPRIL 20 MG TABLET PO SCH (21:26)
[2022-04-03] MEDS: GABAPENTIN 100 MG CAPSULE PO SCH (21:26)
[2022-04-03] MEDS: ATORVASTATIN CA 40 MG TABLET (FP) PO SCH (21:26)
[2022-04-03] MEDS: SENNOSIDES 8.6MG TABLET (FP) PO SCH (21:27)
[2022-04-03] MEDS: MELATONIN 5 MG TABLETS PO PRN (22:05)
[2022-04-04] MEDS: POLYETHYLENE GLYCOL (HEALTHYLAX) 3350 17 GM PACKET PO SCH ×3 (06:05→21:35)
[2022-04-04 07:55] LABS: HEMATOCRIT 25.4 % (32.4-45.2); HEMOGLOBIN 8.7 GM/dL (10.7-15.3); MCHC 34.1 g/dl (32.0-36.0); MEAN PLT VOLUME 7.3 fl (7.5-11.1); PLATELET COUNT 282 10^3/uL (134-434); RBC 2.89 M/mm3 (3.60-5.2); RDW 15.8 % (11.6-15.6); WHITE BLOOD COUNT 6.9 K/mm3 (4.0-10.0)
[2022-04-04 08:14] LABS: BLOOD UREA NITROGEN 10.6 mg/dL (7-18); CALCIUM 8.8 mg/dL (8.5-10.1)
[2022-04-04 08:17] LABS: CREATININE 0.7 mg/dL (0.55-1.3)
[2022-04-04 08:21] LABS: INR 3.33 (0.83-1.09); PROTHROMBIN TIME (PATIENT) 38.8 SEC (9.7-13.0)
[2022-04-04 08:22] LABS: ACTIVATED PTT 41.2 SECONDS (25.2-36.5)
[2022-04-04] MEDS: CILOSTAZOL 50 MG TABLET PO SCH (10:50)
[2022-04-04] MEDS: ASPIRIN COATED 81 MG TABLET.EC PO SCH (10:50)
[2022-04-04] MEDS: FAMOTIDINE 10 MG TABLET PO SCH ×2 (10:50→21:34)
[2022-04-04] MEDS: BACLOFEN 10 MG TABLET (FP) PO SCH (10:50)
[2022-04-04] MEDS: amLODIPine BESYLATE 10 MG TABLET (FP) PO SCH (10:50)
[2022-04-04] MEDS: busPIRone HCL 5 MG TABLET PO SCH ×2 (10:50→21:34)
[2022-04-04] MEDS: ACETAMINOPHEN 1000 MG/100 ML BAG IVPB PRN ×2 (11:22→18:16)
[2022-04-04] MEDS: WARFARIN NA 2 MG TABLET PO SCH (18:15)
[2022-04-04] MEDS: ATORVASTATIN CA 40 MG TABLET (FP) PO SCH (21:34)
[2022-04-04] MEDS: GABAPENTIN 100 MG CAPSULE PO SCH (21:34)
[2022-04-04] MEDS: MELATONIN 5 MG TABLETS PO PRN (21:34)
[2022-04-04] MEDS: LISINOPRIL 20 MG TABLET PO SCH (21:35)
[2022-04-04] MEDS: SENNOSIDES 8.6MG TABLET (FP) PO SCH (21:35)
[2022-04-05] MEDS ORDERED: morphine SULFATE 4 MG/ML VIAL IVPUSH ONE (00:57)
[2022-04-05] MEDS: POLYETHYLENE GLYCOL (HEALTHYLAX) 3350 17 GM PACKET PO SCH ×3 (06:09→21:29)
[2022-04-05] MEDS ORDERED: morphine CARPU-JECT 2 MG/1 ML DISP.SYRIN IVPUSH PRN (08:01)
[2022-04-05] MEDS ORDERED: traMADol HCL 50 MG TABLET PO PRN (08:56)
[2022-04-05] MEDS: ACETAMINOPHEN 500 MG TABLET (FP) PO SCH ×3 (09:33→21:28)
[2022-04-05] MEDS: ASPIRIN COATED 81 MG TABLET.EC PO SCH (09:35)
[2022-04-05] MEDS: BACLOFEN 10 MG TABLET (FP) PO SCH ×2 (09:35→09:40)
[2022-04-05] MEDS: FAMOTIDINE 10 MG TABLET PO SCH ×2 (09:35→21:28)
[2022-04-05] MEDS: amLODIPine BESYLATE 10 MG TABLET (FP) PO SCH (09:35)
[2022-04-05] MEDS: CILOSTAZOL 50 MG TABLET PO SCH ×2 (09:36→09:39)
[2022-04-05] MEDS: busPIRone HCL 5 MG TABLET PO SCH ×2 (09:36→21:29)
[2022-04-05 10:56] LABS: INR 3.71 (0.83-1.09); PROTHROMBIN TIME (PATIENT) 43.2 SEC (9.7-13.0)
[2022-04-05] MEDS: WARFARIN NA 2 MG TABLET PO SCH (17:16)
[2022-04-05] MEDS ORDERED: WARFARIN NA 2 MG TABLET PO SCH (19:50)
[2022-04-05] MEDS: GABAPENTIN 100 MG CAPSULE PO SCH (21:28)
[2022-04-05] MEDS: ATORVASTATIN CA 40 MG TABLET (FP) PO SCH (21:28)
[2022-04-05] MEDS: SENNOSIDES 8.6MG TABLET (FP) PO SCH (21:29)
[2022-04-05] MEDS: LISINOPRIL 20 MG TABLET PO SCH (21:30)
[2022-04-05] MEDS: MELATONIN 5 MG TABLETS PO PRN (21:32)
[2022-04-06] MEDS: POLYETHYLENE GLYCOL (HEALTHYLAX) 3350 17 GM PACKET PO SCH ×2 (06:18→14:17)
[2022-04-06 07:47] VITALS: TEMP 98.7
[2022-04-06 08:21] LABS: HEMATOCRIT 26.7 % (32.4-45.2); HEMOGLOBIN 8.9 GM/dL (10.7-15.3); MCH 29.5 pg (25.7-33.7); MCHC 33.4 g/dl (32.0-36.0); MEAN CELL VOLUME 88.3 fl (80-96); PLATELET COUNT 397 10^3/uL (134-434); RBC 3.03 M/mm3 (3.60-5.2); RDW 15.8 % (11.6-15.6); WHITE BLOOD COUNT 9.2 K/mm3 (4.0-10.0)
[2022-04-06] MEDS: ACETAMINOPHEN 500 MG TABLET (FP) PO SCH ×3 (08:28→14:15)
[2022-04-06 08:34] LABS: PROTHROMBIN TIME (PATIENT) 34.9 SEC (9.7-13.0)
[2022-04-06] MEDS: amLODIPine BESYLATE 10 MG TABLET (FP) PO SCH (09:27)
[2022-04-06] MEDS: ASPIRIN COATED 81 MG TABLET.EC PO SCH (09:28)
[2022-04-06] MEDS: FAMOTIDINE 10 MG TABLET PO SCH (09:29)
[2022-04-06] MEDS: BACLOFEN 10 MG TABLET (FP) PO SCH (09:33)
[2022-04-06] MEDS: CILOSTAZOL 50 MG TABLET PO SCH (09:38)
[2022-04-06] MEDS: busPIRone HCL 5 MG TABLET PO SCH (09:38)
[2022-04-06 14:33] VITALS: BP 102/55; PULSE 86
[2022-04-06] MEDS ORDERED: WARFARIN NA 3 MG TABLET PO SCH (18:00)
== END 2022-04-06 19:01 | disposition home health service (06) | DRG 181 ==
LOC: JER 14:37 → JERBED 20:25 → J7W 03-24 20:21 → JICU 03-29 18:06 → J8W 04-01 17:46
PROVIDERS: ADMIT Internal Medicine; ATTEND Internal Medicine
PROC: B41GYZZ Fluoroscopy of Left Lower Extremity Arteries using Other Contrast (ICD-10-PCS; 2022-03-29)
PROC: 041L4JL Bypass Left Femoral Artery to Popliteal Artery with Synthetic Substitute, Percutaneous Endoscopic Approach (ICD-10-PCS; principal; 2022-03-29 15:00)
DX: T82.898A Other specified complication of vascular prosthetic devices, implants and grafts, initial encounter (principal); I10 Essential (primary) hypertension; E78.5 Hyperlipidemia, unspecified; I73.9 Peripheral vascular disease, unspecified; E11.51 Type 2 diabetes mellitus with diabetic peripheral angiopathy without gangrene; F17.200 Nicotine dependence, unspecified, uncomplicated; E66.9 Obesity, unspecified; Z68.30 Body mass index [BMI] 30.0-30.9, adult; F41.9 Anxiety disorder, unspecified; Y83.8 Other surgical procedures as the cause of abnormal reaction of the patient, or of later complication, without mention of misadventure at the time of the procedure
CPT/HCPCS: 36415; 76000-TC-FY; 80048; 80053; 81240; 81241; 82272; 83036; 83735; 84100; 84484; 85025; 85027; 85300; 85303; 85306; 85610; 85730; 86850; 86900; 86901; 86922; 88304-TC; 93005; 93010; 94760; 97116-GP; 97161-GP; 99285-25; C9803-CS; J0475; J1644; Q0162; U0003; U0005

== ENCOUNTER 2022-08-10 17:22 | Inpatient (IN) | payer OTHER ==
[2022-08-10 18:42] LABS: BASO % 0.8 % (0-2.0); EOS % 0.7 % (0-4.5); HEMATOCRIT 38.1 % (32.4-45.2); HEMOGLOBIN 13.1 GM/dL (10.7-15.3); LYMPH % 36.5 % (8-40); MCH 27.9 pg (25.7-33.7); MCHC 34.4 g/dl (32.0-36.0); MEAN CELL VOLUME 81.1 fl (80-96); MEAN PLT VOLUME 6.8 fl (7.5-11.1); MONO % 6.2 % (3.8-10.2); NEUT % 55.8 % (42.8-82.8); PLATELET COUNT 332 10^3/uL (134-434); RDW 18.9 % (11.6-15.6); WHITE BLOOD COUNT 7.8 K/mm3 (4.0-10.0)
[2022-08-10 18:48] LABS: INR 2.75 (0.83-1.09); PROTHROMBIN TIME (PATIENT) 31.9 SEC (9.7-13.0)
[2022-08-10 18:50] LABS: ACTIVATED PTT 50.2 SECONDS (25.2-36.5)
[2022-08-10 19:14] LABS: CALCIUM 9.5 mg/dL (8.5-10.1)
[2022-08-10 19:15] LABS: ALBUMIN 3.8 g/dl (3.4-5.0); BLOOD UREA NITROGEN 12.6 mg/dL (7-18)
[2022-08-10 19:18] LABS: CREATININE 0.9 mg/dL (0.55-1.3)
[2022-08-10 19:20] LABS: BILIRUBIN,TOTAL 0.3 mg/dL (0.2-1); TOT PROT 7.1 g/dl (6.4-8.2)
[2022-08-10] MEDS ORDERED: SODIUM CHLORIDE 0.45% 1,000 ML IV SCH (23:45)
[2022-08-11 08:24] LABS: INR 2.31 (0.83-1.09); PROTHROMBIN TIME (PATIENT) 26.8 SEC (9.7-13.0)
[2022-08-11 08:41] LABS: CALCIUM 8.7 mg/dL (8.5-10.1)
[2022-08-11 08:42] LABS: MAGNESIUM 1.9 mg/dL (1.8-2.4)
[2022-08-11 08:45] LABS: CREATININE 0.6 mg/dL (0.55-1.3); PHOSPHOROUS 3.1 mg/dL (2.5-4.9)
[2022-08-11] MEDS ORDERED: busPIRone HCL 5 MG TABLET PO SCH (10:00)
[2022-08-11] MEDS ORDERED: GABAPENTIN 100 MG CAPSULE PO SCH (10:00)
[2022-08-11] MEDS ORDERED: amLODIPine BESYLATE 5 MG TABLET (FP) PO SCH (10:00)
[2022-08-11 10:21] LABS: HEMATOCRIT 37.1 % (32.4-45.2); HEMOGLOBIN 12.5 GM/dL (10.7-15.3); MCH 27.5 pg (25.7-33.7); MCHC 33.6 g/dl (32.0-36.0); MEAN CELL VOLUME 82.1 fl (80-96); MEAN PLT VOLUME 7.4 fl (7.5-11.1); PLATELET COUNT 305 10^3/uL (134-434); RBC 4.53 M/mm3 (3.60-5.2); RDW 19.1 % (11.6-15.6); WHITE BLOOD COUNT 6.9 K/mm3 (4.0-10.0)
[2022-08-11] MEDS ORDERED: THROMBIN (BOVINE) 5,000 UNIT VIAL TP ONE (10:59)
[2022-08-11] MEDS ORDERED: LIDOCAINE HCL 1%, 10 MG/ML (20ML VIAL) ONE (10:59)
[2022-08-11] MEDS ORDERED: HEPARIN NA (PORCINE) 5,000 UNITS/ML 1ML VIAL ONE ×4 (10:59→18:54)
[2022-08-11] MEDS ORDERED: PROPOFOL 20 ML ONE (12:02)
[2022-08-11] MEDS ORDERED: LIDOCAINE HCL/PF 2% SDV 5ML VIAL ONE (12:07)
[2022-08-11] MEDS ORDERED: DEXAMETHASONE SOD PHOSPHATE 4 MG/1 ML VIAL ONE (12:07)
[2022-08-11] MEDS ORDERED: MIDAZOLAM HCL 2 MG/2 ML SINGLE DOSE VIAL ONE (12:10)
[2022-08-11] MEDS ORDERED: ROCURONIUM BROMIDE 50 MG/5 ML SYRINGE ONE ×2 (12:10→17:52)
[2022-08-11] MEDS ORDERED: ONDANSETRON 4 MG/2 ML VIAL IVPUSH PRN (12:22)
[2022-08-11] MEDS ORDERED: LACTATED RINGERS SOLUTION 1,000 ML IV SCH (12:30)
[2022-08-11] MEDS ORDERED: ceFAZolin SODIUM 1 GM VIAL IVPB ONE (12:50)
[2022-08-11] MEDS ORDERED: ceFAZolin 2 GRAM PREMIX BAG IVPB ONE (12:50)
[2022-08-11] MEDS ORDERED: LIDOCAINE HCL 1%, 10 MG/ML (20ML VIAL) NR ONE (13:00)
[2022-08-11] MEDS ORDERED: IOHEXOL 300 MG/ML INFUS..BTL IV ONE (13:00)
[2022-08-11] MEDS ORDERED: HEPARIN NA (PORCINE) 5,000 UNITS/ML 1ML VIAL IV ONE (13:00)
[2022-08-11] MEDS ORDERED: HEPARIN NA (PORCINE) 5,000 UNITS/ML 1ML VIAL IVPUSH ONE (13:09)
[2022-08-11] MEDS ORDERED: NEOSTIGMINE METHYLSULFATE 0.5 MG/1 ML - 10 ML MDV ONE ×2 (13:09→18:16)
[2022-08-11] MEDS ORDERED: ONDANSETRON 4 MG/2 ML VIAL ONE (13:10)
[2022-08-11] MEDS ORDERED: GLYCOPYRROLATE 0.2 MG/1 ML VIAL ONE ×2 (13:12→18:16)
[2022-08-11] MEDS ORDERED: SODIUM CHLORIDE 0.9% P/F 10 ML VIAL IJ ONE (14:10)
[2022-08-11] MEDS ORDERED: ACETAMINOPHEN INJECTION 100 ML IVPB ONE (16:30)
[2022-08-11] MEDS ORDERED: ceFAZolin SODIUM 1 GM VIAL ONE (16:52)
[2022-08-11] MEDS ORDERED: VASOPRESSIN 20 UNITS/ML VIAL IV ONE (17:26)
[2022-08-11] MEDS ORDERED: WARFARIN NA 3 MG TABLET PO SCH (18:00)
[2022-08-11] MEDS ORDERED: POVIDONE-IODINE OINTMENT 10% - 28.4 GM TUBE ONE (18:12)
[2022-08-11] MEDS ORDERED: HEPARIN NA (PORCINE) 5,000 UNITS/ML 1ML VIAL IVPUSH PRN ×2 (18:26)
[2022-08-11] MEDS ORDERED: HEPARIN INFUSION - 25,000 UNITS/500 ML INFUS.BAG IVPB SCH (18:30)
[2022-08-11 20:16] LABS: LACTIC ACID 2.6 mmol/L (0.4-2.0)
[2022-08-11 20:24] LABS: HEMATOCRIT 27.7 % (32.4-45.2); HEMOGLOBIN 8.8 GM/dL (10.7-15.3); MCH 26.3 pg (25.7-33.7); MCHC 31.9 g/dl (32.0-36.0); MEAN CELL VOLUME 82.5 fl (80-96); MEAN PLT VOLUME 7.9 fl (7.5-11.1); PLATELET COUNT 326 10^3/uL (134-434); RBC 3.36 M/mm3 (3.60-5.2); RDW 19.2 % (11.6-15.6); WHITE BLOOD COUNT 15.7 K/mm3 (4.0-10.0)
[2022-08-11 20:53] LABS: ALBUMIN 2.4 g/dl (3.4-5.0); BILIRUBIN,TOTAL 0.3 mg/dL (0.2-1); BLOOD UREA NITROGEN 13.1 mg/dL (7-18); CALCIUM 7.8 mg/dL (8.5-10.1); CREATININE 0.9 mg/dL (0.55-1.3)
[2022-08-11] MEDS ORDERED: MIRTAZAPINE 15 MG TABLET (FP) PO SCH (22:00)
[2022-08-11] MEDS ORDERED: LISINOPRIL 20 MG TABLET PO SCH (22:00)
[2022-08-11] MEDS ORDERED: ATORVASTATIN CA 40 MG TABLET (FP) PO SCH (22:00)
[2022-08-11] MEDS: busPIRone HCL 5 MG TABLET PO SCH (22:18)
[2022-08-11] MEDS: CHLORHEXIDINE GLUCONATE 4% CLEANSER FOR DECOLONIZATION TP SCH (22:18)
[2022-08-11] MEDS: MUPIROCIN 2% TOPICAL OINTMENT FOR DECOLONIZATION NS SCH (22:18)
[2022-08-11] MEDS: GABAPENTIN 100 MG CAPSULE PO SCH (22:18)
[2022-08-11] MEDS: ATORVASTATIN CA 40 MG TABLET (FP) PO SCH (22:18)
[2022-08-11] MEDS: MIRTAZAPINE 15 MG TABLET (FP) PO SCH (22:19)
[2022-08-11] MEDS: LISINOPRIL 20 MG TABLET PO SCH (22:19)
[2022-08-12 08:15] LABS: BASO % 0.1 % (0-2.0); HEMATOCRIT 26.8 % (32.4-45.2); HEMOGLOBIN 9.4 GM/dL (10.7-15.3); MCH 29.5 pg (25.7-33.7); MCHC 35.1 g/dl (32.0-36.0); MEAN PLT VOLUME 7.7 fl (7.5-11.1); MONO % 7.1 % (3.8-10.2); NEUT % 74.8 % (42.8-82.8); PLATELET COUNT 221 10^3/uL (134-434); RBC 3.19 M/mm3 (3.60-5.2); WHITE BLOOD COUNT 17.1 K/mm3 (4.0-10.0)
[2022-08-12 08:24] LABS: BLOOD UREA NITROGEN 12.2 mg/dL (7-18)
[2022-08-12 08:27] LABS: CALCIUM 7.9 mg/dL (8.5-10.1); MAGNESIUM 1.7 mg/dL (1.8-2.4); PHOSPHOROUS 2.8 mg/dL (2.5-4.9)
[2022-08-12 08:28] LABS: CREATININE 0.8 mg/dL (0.55-1.3)
[2022-08-12 08:29] LABS: BILIRUBIN,TOTAL 0.3 mg/dL (0.2-1); TOT PROT 5.6 g/dl (6.4-8.2)
[2022-08-12] MEDS ORDERED: MAGNESIUM SULF 50% (8.12 MEQ/2 ML-1 GM VIAL) IVPB ONE (08:29)
[2022-08-12] MEDS ORDERED: MAGNESIUM SULF 50% (8.12 MEQ/2 ML-1 GM VIAL) ONE (08:31)
[2022-08-12] MEDS: MUPIROCIN 2% TOPICAL OINTMENT FOR DECOLONIZATION NS SCH ×2 (08:59→21:25)
[2022-08-12] MEDS: GABAPENTIN 100 MG CAPSULE PO SCH ×2 (08:59→21:24)
[2022-08-12] MEDS: busPIRone HCL 5 MG TABLET PO SCH ×2 (08:59→21:24)
[2022-08-12] MEDS: amLODIPine BESYLATE 5 MG TABLET (FP) PO SCH (08:59)
[2022-08-12 09:01] LABS: ACTIVATED PTT 142.2 SECONDS (25.2-36.5)
[2022-08-12 09:08] LABS: INR 1.9 (0.83-1.09)
[2022-08-12] MEDS: ENOXAPARIN NA (PORCINE) 100 MG/1 ML DISP.SYRIN SQ SCH ×2 (09:14→21:25)
[2022-08-12] MEDS ORDERED: ONDANSETRON 4 MG/2 ML VIAL IVPUSH PRN (11:49)
[2022-08-12] MEDS: oxyCODONE HCL 5 MG TABLET PO PRN (12:14)
[2022-08-12] MEDS: morphine SULFATE 4 MG/ML VIAL IVPUSH PRN ×3 (12:28→21:22)
[2022-08-12] MEDS ORDERED: WARFARIN NA 3 MG TABLET PO ONE (18:00)
[2022-08-12] MEDS ORDERED: WARFARIN NA 3 MG TABLET PO SCH (18:00)
[2022-08-12] MEDS ORDERED: WARFARIN NA 2.5 MG, WARFARIN NA 1 MG PO ONE (18:00)
[2022-08-12] MEDS: ATORVASTATIN CA 40 MG TABLET (FP) PO SCH (21:24)
[2022-08-12] MEDS: MIRTAZAPINE 15 MG TABLET (FP) PO SCH (21:25)
[2022-08-12] MEDS: CHLORHEXIDINE GLUCONATE 4% CLEANSER FOR DECOLONIZATION TP SCH (21:25)
[2022-08-12] MEDS: LISINOPRIL 20 MG TABLET PO SCH (21:27)
[2022-08-13] MEDS: morphine SULFATE 4 MG/ML VIAL IVPUSH PRN ×4 (01:30→19:12)
[2022-08-13] MEDS: ACETAMINOPHEN 325 MG TABLET (FP) PO PRN ×2 (01:33→14:23)
[2022-08-13] MEDS: oxyCODONE HCL 5 MG TABLET PO PRN ×3 (04:03→16:08)
[2022-08-13 07:21] LABS: BASO % 0.3 % (0-2.0); EOS % 0.4 % (0-4.5); HEMATOCRIT 22.6 % (32.4-45.2); HEMOGLOBIN 7.5 GM/dL (10.7-15.3); LYMPH % 38.7 % (8-40); MCH 28.1 pg (25.7-33.7); MCHC 33.1 g/dl (32.0-36.0); MEAN CELL VOLUME 84.8 fl (80-96); MEAN PLT VOLUME 7.6 fl (7.5-11.1); MONO % 7.8 % (3.8-10.2); NEUT % 52.8 % (42.8-82.8); PLATELET COUNT 229 10^3/uL (134-434); RBC 2.67 M/mm3 (3.60-5.2); RDW 18.8 % (11.6-15.6); WHITE BLOOD COUNT 13.2 K/mm3 (4.0-10.0)
[2022-08-13 07:27] LABS: INR 1.63 (0.83-1.09); PROTHROMBIN TIME (PATIENT) 18.8 SEC (9.7-13.0)
[2022-08-13 07:48] LABS: CALCIUM 8.1 mg/dL (8.5-10.1)
[2022-08-13 07:49] LABS: ALBUMIN 3.1 g/dl (3.4-5.0); BLOOD UREA NITROGEN 10.6 mg/dL (7-18); MAGNESIUM 2.1 mg/dL (1.8-2.4)
[2022-08-13 07:52] LABS: CREATININE 0.8 mg/dL (0.55-1.3); PHOSPHOROUS 2.3 mg/dL (2.5-4.9)
[2022-08-13 07:53] LABS: TOT PROT 5.8 g/dl (6.4-8.2)
[2022-08-13 07:54] LABS: BILIRUBIN,TOTAL 0.4 mg/dL (0.2-1)
[2022-08-13] MEDS: amLODIPine BESYLATE 5 MG TABLET (FP) PO SCH (10:00)
[2022-08-13] MEDS: MUPIROCIN 2% TOPICAL OINTMENT FOR DECOLONIZATION NS SCH ×2 (10:14→22:04)
[2022-08-13] MEDS: busPIRone HCL 5 MG TABLET PO SCH ×2 (10:15→22:02)
[2022-08-13] MEDS: GABAPENTIN 100 MG CAPSULE PO SCH ×2 (10:15→22:00)
[2022-08-13] MEDS: ENOXAPARIN NA (PORCINE) 100 MG/1 ML DISP.SYRIN SQ SCH ×2 (10:15→22:04)
[2022-08-13] MEDS ORDERED: WARFARIN NA 3 MG TABLET PO ONE (17:01)
[2022-08-13] MEDS ORDERED: HYDROmorphone HCl 2 MG/ML VIAL ONE (20:11)
[2022-08-13] MEDS: MIRTAZAPINE 15 MG TABLET (FP) PO SCH (22:00)
[2022-08-13] MEDS: ATORVASTATIN CA 40 MG TABLET (FP) PO SCH (22:02)
[2022-08-13] MEDS: LISINOPRIL 20 MG TABLET PO SCH (22:02)
[2022-08-13] MEDS: CHLORHEXIDINE GLUCONATE 4% CLEANSER FOR DECOLONIZATION TP SCH (22:04)
[2022-08-14] MEDS: morphine SULFATE 4 MG/ML VIAL IVPUSH PRN ×3 (00:52→10:07)
[2022-08-14] MEDS: ACETAMINOPHEN 325 MG TABLET (FP) PO PRN (00:52)
[2022-08-14] MEDS ORDERED: HYDROmorphone HCL CARPU-JECT 2 MG/1 ML DISP.SYRIN IVPUSH ONE (05:20)
[2022-08-14] MEDS ORDERED: HYDROmorphone HCl 2 MG/ML VIAL IVPUSH ONE (05:20)
[2022-08-14 07:35] LABS: HEMATOCRIT 21.1 % (32.4-45.2); HEMOGLOBIN 7.1 GM/dL (10.7-15.3); MCH 28.3 pg (25.7-33.7); MCHC 33.4 g/dl (32.0-36.0); MEAN CELL VOLUME 84.6 fl (80-96); MEAN PLT VOLUME 7.6 fl (7.5-11.1); PLATELET COUNT 239 10^3/uL (134-434); RDW 18.7 % (11.6-15.6); WHITE BLOOD COUNT 13.5 K/mm3 (4.0-10.0)
[2022-08-14 07:59] LABS: ALBUMIN 3.1 g/dl (3.4-5.0); BLOOD UREA NITROGEN 7.6 mg/dL (7-18); CALCIUM 8.3 mg/dL (8.5-10.1); MAGNESIUM 2.1 mg/dL (1.8-2.4)
[2022-08-14 08:02] LABS: CREATININE 0.8 mg/dL (0.55-1.3)
[2022-08-14 08:04] LABS: BILIRUBIN,TOTAL 0.4 mg/dL (0.2-1); TOT PROT 5.9 g/dl (6.4-8.2)
[2022-08-14] MEDS: oxyCODONE HCL 5 MG TABLET PO PRN (08:23)
[2022-08-14 08:43] LABS: INR 1.56 (0.83-1.09)
[2022-08-14] MEDS: amLODIPine BESYLATE 5 MG TABLET (FP) PO SCH (10:00)
[2022-08-14] MEDS: GABAPENTIN 100 MG CAPSULE PO SCH ×2 (10:00→21:47)
[2022-08-14] MEDS: MUPIROCIN 2% TOPICAL OINTMENT FOR DECOLONIZATION NS SCH ×2 (11:00→21:46)
[2022-08-14] MEDS ORDERED: ROCURONIUM BROMIDE 50 MG/5 ML SYRINGE ONE (11:21)
[2022-08-14] MEDS ORDERED: PROPOFOL 20 ML ONE (11:21)
[2022-08-14] MEDS: busPIRone HCL 5 MG TABLET PO SCH ×2 (11:42→21:46)
[2022-08-14] MEDS: ENOXAPARIN NA (PORCINE) 100 MG/1 ML DISP.SYRIN SQ SCH (11:43)
[2022-08-14] MEDS ORDERED: ceFAZolin SODIUM 1 GM VIAL IVPB ONE (12:04)
[2022-08-14] MEDS ORDERED: DEXAMETHASONE SOD PHOSPHATE 4 MG/1 ML VIAL ONE (12:04)
[2022-08-14] MEDS ORDERED: ceFAZolin SODIUM 1 GM VIAL ONE (12:04)
[2022-08-14] MEDS ORDERED: HEPARIN NA (PORCINE) 5,000 UNITS/ML 1ML VIAL ONE (12:32)
[2022-08-14] MEDS ORDERED: ONDANSETRON 4 MG/2 ML VIAL ONE (13:16)
[2022-08-14] MEDS ORDERED: POVIDONE-IODINE OINTMENT 10% - 28.4 GM TUBE ONE (13:33)
[2022-08-14] MEDS ORDERED: THROMBIN (BOVINE) 5,000 UNIT VIAL TP ONE (13:38)
[2022-08-14] MEDS ORDERED: GLYCOPYRROLATE 0.2 MG/1 ML VIAL ONE (14:27)
[2022-08-14] MEDS ORDERED: NEOSTIGMINE METHYLSULFATE 0.5 MG/ML - 10 ML MDV ONE (14:27)
[2022-08-14] MEDS ORDERED: ACETAMINOPHEN INJECTION 100 ML IVPB ONE (14:36)
[2022-08-14] MEDS ORDERED: HEPARIN NA (PORCINE) 5,000 UNITS/ML 1ML VIAL IVPUSH PRN ×2 (15:13)
[2022-08-14] MEDS ORDERED: HEPARIN INFUSION - 25,000 UNITS/500 ML INFUS.BAG IVPB SCH (15:15)
[2022-08-14] MEDS ORDERED: morphine SULFATE 4 MG/ML VIAL ONE (21:20)
[2022-08-14] MEDS: CHLORHEXIDINE GLUCONATE 4% CLEANSER FOR DECOLONIZATION TP SCH (21:46)
[2022-08-14] MEDS: MIRTAZAPINE 15 MG TABLET (FP) PO SCH (21:47)
[2022-08-14] MEDS: ATORVASTATIN CA 40 MG TABLET (FP) PO SCH (21:47)
[2022-08-14] MEDS: LISINOPRIL 20 MG TABLET PO SCH (21:47)
[2022-08-15] MEDS: oxyCODONE HCL 5 MG TABLET PO PRN ×2 (01:15→16:56)
[2022-08-15 06:57] LABS: HEMATOCRIT 28.2 % (32.4-45.2); HEMOGLOBIN 9.6 GM/dL (10.7-15.3); MCH 28.3 pg (25.7-33.7); MCHC 33.9 g/dl (32.0-36.0); MEAN CELL VOLUME 83.4 fl (80-96); MEAN PLT VOLUME 7.9 fl (7.5-11.1); PLATELET COUNT 189 10^3/uL (134-434); RBC 3.38 M/mm3 (3.60-5.2); RDW 17.6 % (11.6-15.6); WHITE BLOOD COUNT 13.8 K/mm3 (4.0-10.0)
[2022-08-15] MEDS ORDERED: morphine SULFATE 4 MG/ML VIAL ONE (09:03)
[2022-08-15] MEDS: busPIRone HCL 5 MG TABLET PO SCH ×2 (09:18→22:03)
[2022-08-15] MEDS: GABAPENTIN 100 MG CAPSULE PO SCH ×2 (09:19→22:04)
[2022-08-15] MEDS: amLODIPine BESYLATE 5 MG TABLET (FP) PO SCH (09:21)
[2022-08-15] MEDS: MUPIROCIN 2% TOPICAL OINTMENT FOR DECOLONIZATION NS SCH ×2 (09:21→22:04)
[2022-08-15 10:42] LABS: INR 1.66 (0.83-1.09); PROTHROMBIN TIME (PATIENT) 19.2 SEC (9.7-13.0)
[2022-08-15] MEDS ORDERED: oxyCODONE HCL 5 MG TABLET PO ONE ×2 (12:15→17:15)
[2022-08-15] MEDS ORDERED: ACETAMINOPHEN 325 MG TABLET (FP) PO ONE ×2 (12:15→17:15)
[2022-08-15] MEDS: APIXABAN 5 MG TABLET PO SCH ×2 (13:42→22:04)
[2022-08-15] MEDS ORDERED: oxyCODONE HCL 5 MG TABLET ONE (16:52)
[2022-08-15] MEDS: ACETAMINOPHEN 325 MG TABLET (FP) PO PRN ×2 (16:58→23:43)
[2022-08-15] MEDS ORDERED: WARFARIN NA 3 MG TABLET PO SCH (18:00)
[2022-08-15] MEDS: HYDROmorphone HCl 2 MG/ML VIAL IVPUSH PRN ×2 (19:52→23:42)
[2022-08-15] MEDS: PANTOPRAZOLE SODIUM 40 MG VIAL IVPUSH SCH (19:53)
[2022-08-15] MEDS: oxyCODONE HCL 5 MG TABLET PO SCH (20:39)
[2022-08-15] MEDS ORDERED: SENNOSIDES/DOCUSATE COMBO (SENNA PLUS) TABLET (UD) PO SCH (22:00)
[2022-08-15] MEDS: MIRTAZAPINE 15 MG TABLET (FP) PO SCH (22:03)
[2022-08-15] MEDS: ATORVASTATIN CA 40 MG TABLET (FP) PO SCH (22:03)
[2022-08-15] MEDS: CHLORHEXIDINE GLUCONATE 4% CLEANSER FOR DECOLONIZATION TP SCH (22:04)
[2022-08-15] MEDS: LISINOPRIL 20 MG TABLET PO SCH (22:04)
[2022-08-15] MEDS ORDERED: oxyCODONE HCL 5 MG TABLET PO PRN (23:00)
[2022-08-16] MEDS: oxyCODONE HCL 5 MG TABLET PO SCH ×3 (01:15→12:53)
[2022-08-16] MEDS: HYDROmorphone HCl 2 MG/ML VIAL IVPUSH PRN ×3 (03:45→16:17)
[2022-08-16] MEDS: ACETAMINOPHEN 325 MG TABLET (FP) PO PRN ×3 (06:58→18:10)
[2022-08-16 07:29] LABS: HEMATOCRIT 26.6 % (32.4-45.2); HEMOGLOBIN 8.8 GM/dL (10.7-15.3); MCH 27.9 pg (25.7-33.7); MCHC 33.2 g/dl (32.0-36.0); MEAN CELL VOLUME 84.1 fl (80-96); MEAN PLT VOLUME 7.7 fl (7.5-11.1); PLATELET COUNT 250 10^3/uL (134-434); RBC 3.17 M/mm3 (3.60-5.2); RDW 18.3 % (11.6-15.6); WHITE BLOOD COUNT 12.7 K/mm3 (4.0-10.0)
[2022-08-16 07:35] LABS: INR 2.66 (0.83-1.09); PROTHROMBIN TIME (PATIENT) 30.9 SEC (9.7-13.0)
[2022-08-16 07:38] LABS: ACTIVATED PTT 31.8 SECONDS (25.2-36.5)
[2022-08-16 07:52] LABS: ALBUMIN 2.8 g/dl (3.4-5.0); BLOOD UREA NITROGEN 12.8 mg/dL (7-18); CALCIUM 8.7 mg/dL (8.5-10.1)
[2022-08-16 07:55] LABS: CREATININE 0.8 mg/dL (0.55-1.3)
[2022-08-16 07:57] LABS: BILIRUBIN,TOTAL 0.4 mg/dL (0.2-1); TOT PROT 5.9 g/dl (6.4-8.2)
[2022-08-16] MEDS: busPIRone HCL 5 MG TABLET PO SCH ×2 (09:14→21:22)
[2022-08-16] MEDS: amLODIPine BESYLATE 5 MG TABLET (FP) PO SCH (09:14)
[2022-08-16] MEDS: GABAPENTIN 100 MG CAPSULE PO SCH ×2 (09:14→21:23)
[2022-08-16] MEDS: APIXABAN 5 MG TABLET PO SCH ×2 (09:14→21:23)
[2022-08-16] MEDS: PANTOPRAZOLE SODIUM 40 MG VIAL IVPUSH SCH (09:35)
[2022-08-16] MEDS: MUPIROCIN 2% TOPICAL OINTMENT FOR DECOLONIZATION NS SCH (11:00)
[2022-08-16] MEDS ORDERED: HYDROmorphone HCl 2 MG/ML VIAL IVPUSH ONE ×2 (12:13→23:37)
[2022-08-16] MEDS ORDERED: HYDROmorphone HCl 2 MG/ML VIAL ONE (12:19)
[2022-08-16 14:24] VITALS: BMI 29.4
[2022-08-16] MEDS: HYDROmorphone HCL 2 MG TABLET PO PRN (19:30)
[2022-08-16] MEDS: MELATONIN 5 MG TABLETS PO SCH (21:23)
[2022-08-16] MEDS: ATORVASTATIN CA 40 MG TABLET (FP) PO SCH (21:23)
[2022-08-16] MEDS: DOCUSATE SODIUM 100 MG CAPSULE (FP) PO SCH (21:23)
[2022-08-16] MEDS: LISINOPRIL 20 MG TABLET PO SCH (21:23)
[2022-08-16] MEDS: CHLORHEXIDINE GLUCONATE 4% CLEANSER FOR DECOLONIZATION TP SCH (21:23)
[2022-08-16] MEDS: MIRTAZAPINE 15 MG TABLET (FP) PO SCH (21:23)
[2022-08-16] MEDS: morphine SULFATE 4 MG/ML VIAL IVPUSH PRN (21:24)
[2022-08-16] MEDS: ACETAMINOPHEN 1000 MG/100 ML BAG IVPB PRN (22:43)
[2022-08-16] MEDS: hydrOXYzine PAMOATE 25 MG CAPSULE (FP) PO SCH (22:44)
[2022-08-16 23:55] LABS: EPI CELLS 6 /uL (0-25.1); HYALINE CASTS 0 /uL (0-3.1); PH,URINE 6.5 (5.0-8.0); URINE APPEARANCE CLEAR; URINE BACTERIA 8 /uL (0-1359); URINE BILIRUBIN NEGATIVE (NEGATIVE); URINE COLOR YELLOW; URINE GLUCOSE (UA) NEGATIVE (NEGATIVE); URINE KETONE NEGATIVE (NEGATIVE); URINE LEUK ESTERASE NEGATIVE (NEGATIVE); URINE NITRITE NEGATIVE (NEGATIVE); URINE PROTEIN NEGATIVE (NEGATIVE); URINE RBC 240 /uL (0-23.9); URINE UROBILINOGEN 0.2 mg/dL (0.2-1.0); URINE WBC 6 /uL (0-25.8)
[2022-08-17] MEDS: morphine SULFATE 4 MG/ML VIAL IVPUSH PRN ×2 (02:37→12:02)
[2022-08-17] MEDS: DOCUSATE SODIUM 100 MG CAPSULE (FP) PO SCH ×2 (06:01→16:27)
[2022-08-17] MEDS: ACETAMINOPHEN 1000 MG/100 ML BAG IVPB PRN (06:01)
[2022-08-17 07:49] LABS: BASO % 0.3 % (0-2.0); HEMATOCRIT 28.4 % (32.4-45.2); HEMOGLOBIN 9.7 GM/dL (10.7-15.3); LYMPH % 30.9 % (8-40); MCH 28.7 pg (25.7-33.7); MCHC 34.1 g/dl (32.0-36.0); MEAN CELL VOLUME 83.9 fl (80-96); MEAN PLT VOLUME 7.4 fl (7.5-11.1); MONO % 7.5 % (3.8-10.2); NEUT % 60.3 % (42.8-82.8); PLATELET COUNT 289 10^3/uL (134-434); RBC 3.39 M/mm3 (3.60-5.2); WHITE BLOOD COUNT 11.5 K/mm3 (4.0-10.0)
[2022-08-17 07:51] LABS: INR 1.99 (0.83-1.09); PROTHROMBIN TIME (PATIENT) 23.1 SEC (9.7-13.0)
[2022-08-17 07:52] LABS: ACTIVATED PTT 32.5 SECONDS (25.2-36.5)
[2022-08-17] MEDS: HYDROmorphone HCL 2 MG TABLET PO PRN ×2 (07:55→12:02)
[2022-08-17 08:08] LABS: BLOOD UREA NITROGEN 9.2 mg/dL (7-18); CALCIUM 8.7 mg/dL (8.5-10.1)
[2022-08-17 08:12] LABS: CREATININE 0.7 mg/dL (0.55-1.3)
[2022-08-17 08:13] LABS: BILIRUBIN,TOTAL 0.4 mg/dL (0.2-1); TOT PROT 6.2 g/dl (6.4-8.2)
[2022-08-17] MEDS: amLODIPine BESYLATE 5 MG TABLET (FP) PO SCH (09:42)
[2022-08-17] MEDS: PANTOPRAZOLE SODIUM 40 MG VIAL IVPUSH SCH (09:42)
[2022-08-17] MEDS: GABAPENTIN 100 MG CAPSULE PO SCH (09:42)
[2022-08-17] MEDS: busPIRone HCL 5 MG TABLET PO SCH (09:42)
[2022-08-17] MEDS: APIXABAN 5 MG TABLET PO SCH (09:42)
[2022-08-17] MEDS: BISACODYL 5 MG TABLET.DR (FP) PO PRN (09:46)
[2022-08-17] MEDS ORDERED: HYDROmorphone HCl 2 MG/ML VIAL IVPB ONE (15:00)
[2022-08-17] MEDS ORDERED: PROPOFOL 40 ML ONE (18:21)
[2022-08-17] MEDS ORDERED: ROCURONIUM BROMIDE 50 MG/5 ML SYRINGE ONE (18:22)
[2022-08-17] MEDS ORDERED: DEXMEDETOMIDINE HCL 200 MCG/2 ML IVPB ONE (18:24)
[2022-08-17] MEDS ORDERED: HEPARIN NA (PORCINE) 5,000 UNITS/ML 1ML VIAL ONE ×3 (18:26→21:01)
[2022-08-17] MEDS ORDERED: ceFAZolin SODIUM 1 GM VIAL IVPB ONE (19:05)
[2022-08-17] MEDS ORDERED: PHENYLEPHRINE HCL 10 MG/1 ML SINGLE DOSE VIAL ONE (20:07)
[2022-08-17] MEDS ORDERED: DEXAMETHASONE SOD PHOSPHATE 4 MG/1 ML VIAL ONE (20:31)
[2022-08-17] MEDS ORDERED: HEPARIN INFUSION - 25,000 UNITS/500 ML INFUS.BAG IVPB ONE (21:27)
[2022-08-17] MEDS ORDERED: POVIDONE-IODINE OINTMENT 10% - 28.4 GM TUBE TP ONE (21:50)
[2022-08-17] MEDS ORDERED: HEPARIN NA (PORCINE) 5,000 UNITS/ML 1ML VIAL IVPUSH PRN ×2 (22:50)
[2022-08-17] MEDS ORDERED: HEPARIN INFUSION - 25,000 UNITS/500 ML INFUS.BAG IVPB SCH (23:00)
[2022-08-18] MEDS: morphine SULFATE 4 MG/ML VIAL IVPUSH PRN ×5 (00:02→22:21)
[2022-08-18] MEDS: GABAPENTIN 100 MG CAPSULE PO SCH ×3 (00:18→22:20)
[2022-08-18] MEDS: MELATONIN 5 MG TABLETS PO SCH ×2 (00:18→22:21)
[2022-08-18] MEDS: LISINOPRIL 20 MG TABLET PO SCH ×2 (00:18→22:20)
[2022-08-18] MEDS: hydrOXYzine PAMOATE 25 MG CAPSULE (FP) PO SCH ×2 (00:19→22:20)
[2022-08-18] MEDS: ATORVASTATIN CA 40 MG TABLET (FP) PO SCH ×2 (00:19→22:20)
[2022-08-18] MEDS: busPIRone HCL 5 MG TABLET PO SCH ×3 (00:20→22:20)
[2022-08-18] MEDS: MIRTAZAPINE 15 MG TABLET (FP) PO SCH ×2 (00:20→22:21)
[2022-08-18] MEDS: DOCUSATE SODIUM 100 MG CAPSULE (FP) PO SCH ×5 (00:20→22:33)
[2022-08-18] MEDS: CHLORHEXIDINE GLUCONATE 4% CLEANSER FOR DECOLONIZATION TP SCH ×2 (00:21→22:21)
[2022-08-18] MEDS: HYDROmorphone HCL 2 MG TABLET PO PRN ×5 (01:43→22:21)
[2022-08-18] MEDS: ACETAMINOPHEN 325 MG TABLET (FP) PO PRN (01:43)
[2022-08-18 04:59] LABS: HEMATOCRIT 25.5 % (32.4-45.2); HEMOGLOBIN 8.6 GM/dL (10.7-15.3); MCH 28.5 pg (25.7-33.7); MCHC 33.9 g/dl (32.0-36.0); MEAN PLT VOLUME 7.4 fl (7.5-11.1); PLATELET COUNT 266 10^3/uL (134-434); RBC 3.04 M/mm3 (3.60-5.2); RDW 18.5 % (11.6-15.6); WHITE BLOOD COUNT 13.1 K/mm3 (4.0-10.0)
[2022-08-18 05:15] LABS: INR 1.7 (0.83-1.09); PROTHROMBIN TIME (PATIENT) 19.6 SEC (9.7-13.0)
[2022-08-18 05:17] LABS: ACTIVATED PTT 96.7 SECONDS (25.2-36.5)
[2022-08-18 06:16] LABS: CALCIUM 8.3 mg/dL (8.5-10.1)
[2022-08-18 06:18] LABS: ALBUMIN 2.7 g/dl (3.4-5.0); MAGNESIUM 2.2 mg/dL (1.8-2.4)
[2022-08-18 06:21] LABS: CREATININE 0.8 mg/dL (0.55-1.3); PHOSPHOROUS 3.2 mg/dL (2.5-4.9)
[2022-08-18 06:22] LABS: BILIRUBIN,TOTAL 0.4 mg/dL (0.2-1)
[2022-08-18 06:23] LABS: TOT PROT 5.9 g/dl (6.4-8.2)
[2022-08-18] MEDS: PANTOPRAZOLE SODIUM 40 MG VIAL IVPUSH SCH (09:30)
[2022-08-18] MEDS: amLODIPine BESYLATE 5 MG TABLET (FP) PO SCH (09:31)
[2022-08-18] MEDS: APIXABAN 5 MG TABLET PO SCH ×2 (13:26→22:20)
[2022-08-18] MEDS ORDERED: HYDROmorphone HCl 2 MG/ML VIAL IVPUSH ONE (16:11)
[2022-08-18] MEDS ORDERED: morphine SULFATE 4 MG/ML VIAL IVPUSH PRN (16:34)
[2022-08-19] MEDS: ACETAMINOPHEN 325 MG TABLET (FP) PO PRN ×3 (01:44→20:58)
[2022-08-19] MEDS: morphine SULFATE 4 MG/ML VIAL IVPUSH PRN ×3 (01:44→20:58)
[2022-08-19] MEDS: HYDROmorphone HCL 2 MG TABLET PO PRN ×4 (05:31→18:36)
[2022-08-19] MEDS: DOCUSATE SODIUM 100 MG CAPSULE (FP) PO SCH ×3 (06:36→21:01)
[2022-08-19] MEDS ORDERED: HYDROmorphone HCl 2 MG/ML VIAL IVPUSH ONE (07:13)
[2022-08-19 07:42] LABS: BASO % 0.5 % (0-2.0); EOS % 0.7 % (0-4.5); HEMATOCRIT 23.1 % (32.4-45.2); HEMOGLOBIN 7.9 GM/dL (10.7-15.3); MCH 28.8 pg (25.7-33.7); MCHC 34.1 g/dl (32.0-36.0); MEAN CELL VOLUME 84.4 fl (80-96); MEAN PLT VOLUME 7.2 fl (7.5-11.1); MONO % 6.4 % (3.8-10.2); NEUT % 64.4 % (42.8-82.8); PLATELET COUNT 295 10^3/uL (134-434); RBC 2.74 M/mm3 (3.60-5.2); RDW 18.1 % (11.6-15.6)
[2022-08-19 07:58] LABS: INR 1.76 (0.83-1.09); PROTHROMBIN TIME (PATIENT) 20.3 SEC (9.7-13.0)
[2022-08-19 08:00] LABS: ACTIVATED PTT 31.2 SECONDS (25.2-36.5)
[2022-08-19 08:10] LABS: CALCIUM 8.8 mg/dL (8.5-10.1)
[2022-08-19 08:15] LABS: CREATININE 0.8 mg/dL (0.55-1.3); PHOSPHOROUS 3.1 mg/dL (2.5-4.9)
[2022-08-19 08:16] LABS: BILIRUBIN,TOTAL 0.3 mg/dL (0.2-1); TOT PROT 6.2 g/dl (6.4-8.2)
[2022-08-19] MEDS: amLODIPine BESYLATE 5 MG TABLET (FP) PO SCH (09:23)
[2022-08-19] MEDS: busPIRone HCL 5 MG TABLET PO SCH ×2 (09:23→21:01)
[2022-08-19] MEDS: PANTOPRAZOLE SODIUM 40 MG VIAL IVPUSH SCH (09:23)
[2022-08-19] MEDS: GABAPENTIN 100 MG CAPSULE PO SCH ×2 (09:23→21:01)
[2022-08-19] MEDS: APIXABAN 5 MG TABLET PO SCH ×2 (09:23→21:01)
[2022-08-19] MEDS: CEFTRIAXONE 1 GM in DEXTROSE 5%-WATER - 50 ML IVPB SCH (09:24)
[2022-08-19] MEDS: BISACODYL 5 MG TABLET.DR (FP) PO PRN (10:17)
[2022-08-19] MEDS: LACTATED RINGERS SOLUTION 1,000 ML/1,000 ML INFUS.BAG IV SCH (12:16)
[2022-08-19] MEDS: HYDROmorphone HCl 2 MG/ML VIAL IVPUSH PRN ×2 (16:28→22:47)
[2022-08-19] MEDS ORDERED: BISACODYL 10 MG SUPP.RECT PR ONE (18:05)
[2022-08-19] MEDS: POLYETHYLENE GLYCOL (HEALTHYLAX) 3350 17 GM PACKET PO SCH (19:08)
[2022-08-19] MEDS: LISINOPRIL 20 MG TABLET PO SCH (21:01)
[2022-08-19] MEDS: MELATONIN 5 MG TABLETS PO SCH (21:01)
[2022-08-19] MEDS: ATORVASTATIN CA 40 MG TABLET (FP) PO SCH (21:01)
[2022-08-19] MEDS: MIRTAZAPINE 15 MG TABLET (FP) PO SCH (21:01)
[2022-08-19] MEDS: hydrOXYzine PAMOATE 50 MG CAPSULE (FP) PO SCH (21:02)
[2022-08-19] MEDS: CHLORHEXIDINE GLUCONATE 4% CLEANSER FOR DECOLONIZATION TP SCH (21:02)
[2022-08-20] MEDS: morphine SULFATE 4 MG/ML VIAL IVPUSH PRN ×6 (00:45→21:46)
[2022-08-20] MEDS: HYDROmorphone HCl 2 MG/ML VIAL IVPUSH PRN ×4 (02:21→20:13)
[2022-08-20] MEDS: ACETAMINOPHEN 325 MG TABLET (FP) PO PRN ×3 (04:15→22:48)
[2022-08-20] MEDS: DOCUSATE SODIUM 100 MG CAPSULE (FP) PO SCH ×3 (05:14→21:44)
[2022-08-20 07:31] LABS: HEMATOCRIT 24.8 % (32.4-45.2); HEMOGLOBIN 8.5 GM/dL (10.7-15.3); MCH 28.8 pg (25.7-33.7); MCHC 34.2 g/dl (32.0-36.0); MEAN CELL VOLUME 84.1 fl (80-96); MEAN PLT VOLUME 7.2 fl (7.5-11.1); PLATELET COUNT 365 10^3/uL (134-434); RBC 2.94 M/mm3 (3.60-5.2); RDW 17.7 % (11.6-15.6); WHITE BLOOD COUNT 11.2 K/mm3 (4.0-10.0)
[2022-08-20 07:58] LABS: ALBUMIN 3.1 g/dl (3.4-5.0); CALCIUM 9.3 mg/dL (8.5-10.1)
[2022-08-20 07:59] LABS: BLOOD UREA NITROGEN 10.2 mg/dL (7-18); MAGNESIUM 2.1 mg/dL (1.8-2.4)
[2022-08-20 08:01] LABS: PHOSPHOROUS 3.9 mg/dL (2.5-4.9)
[2022-08-20 08:02] LABS: CREATININE 0.7 mg/dL (0.55-1.3)
[2022-08-20 08:03] LABS: BILIRUBIN,TOTAL 0.3 mg/dL (0.2-1); TOT PROT 6.5 g/dl (6.4-8.2)
[2022-08-20] MEDS: CEFTRIAXONE 1 GM in DEXTROSE 5%-WATER - 50 ML IVPB SCH (09:52)
[2022-08-20] MEDS: APIXABAN 5 MG TABLET PO SCH ×2 (09:53→21:44)
[2022-08-20] MEDS: busPIRone HCL 5 MG TABLET PO SCH ×2 (09:53→21:44)
[2022-08-20] MEDS: PANTOPRAZOLE SODIUM 40 MG VIAL IVPUSH SCH (09:53)
[2022-08-20] MEDS: GABAPENTIN 100 MG CAPSULE PO SCH ×2 (09:54→21:45)
[2022-08-20] MEDS: POLYETHYLENE GLYCOL (HEALTHYLAX) 3350 17 GM PACKET PO SCH (10:00)
[2022-08-20] MEDS: LACTATED RINGERS SOLUTION 1,000 ML/1,000 ML INFUS.BAG IV SCH (11:30)
[2022-08-20] MEDS ORDERED: HYDROmorphone HCl 2 MG/ML VIAL IVPUSH ONE (15:00)
[2022-08-20] MEDS: hydrOXYzine PAMOATE 50 MG CAPSULE (FP) PO SCH (21:45)
[2022-08-20] MEDS: MELATONIN 5 MG TABLETS PO SCH (21:45)
[2022-08-20] MEDS: CHLORHEXIDINE GLUCONATE 4% CLEANSER FOR DECOLONIZATION TP SCH (21:45)
[2022-08-20] MEDS: ATORVASTATIN CA 40 MG TABLET (FP) PO SCH (21:45)
[2022-08-20] MEDS: MIRTAZAPINE 15 MG TABLET (FP) PO SCH (21:45)
[2022-08-20] MEDS: LISINOPRIL 20 MG TABLET PO SCH (21:45)
[2022-08-21] MEDS: HYDROmorphone HCl 2 MG/ML VIAL IVPUSH PRN ×5 (00:16→23:12)
[2022-08-21] MEDS: morphine SULFATE 4 MG/ML VIAL IVPUSH PRN ×5 (02:19→21:19)
[2022-08-21] MEDS: DOCUSATE SODIUM 100 MG CAPSULE (FP) PO SCH ×3 (06:10→21:18)
[2022-08-21] MEDS: ACETAMINOPHEN 325 MG TABLET (FP) PO PRN ×3 (06:10→21:20)
[2022-08-21 07:35] LABS: HEMATOCRIT 24.1 % (32.4-45.2); HEMOGLOBIN 8.1 GM/dL (10.7-15.3); MCH 28.4 pg (25.7-33.7); MCHC 33.8 g/dl (32.0-36.0); MEAN PLT VOLUME 7.3 fl (7.5-11.1); PLATELET COUNT 425 10^3/uL (134-434); RBC 2.87 M/mm3 (3.60-5.2); RDW 17.8 % (11.6-15.6); WHITE BLOOD COUNT 11.7 K/mm3 (4.0-10.0)
[2022-08-21] MEDS: GABAPENTIN 100 MG CAPSULE PO SCH ×2 (09:00→21:19)
[2022-08-21] MEDS: busPIRone HCL 5 MG TABLET PO SCH ×2 (09:00→21:18)
[2022-08-21] MEDS: APIXABAN 5 MG TABLET PO SCH ×2 (09:00→21:18)
[2022-08-21] MEDS: PANTOPRAZOLE SODIUM 40 MG VIAL IVPUSH SCH (09:02)
[2022-08-21] MEDS: POLYETHYLENE GLYCOL (HEALTHYLAX) 3350 17 GM PACKET PO SCH (09:02)
[2022-08-21] MEDS: CEFTRIAXONE 1 GM in DEXTROSE 5%-WATER - 50 ML IVPB SCH (09:03)
[2022-08-21] MEDS: LACTATED RINGERS SOLUTION 1,000 ML/1,000 ML INFUS.BAG IV SCH (17:34)
[2022-08-21] MEDS: MELATONIN 5 MG TABLETS PO SCH (21:18)
[2022-08-21] MEDS: ATORVASTATIN CA 40 MG TABLET (FP) PO SCH (21:18)
[2022-08-21] MEDS: CHLORHEXIDINE GLUCONATE 4% CLEANSER FOR DECOLONIZATION TP SCH (21:18)
[2022-08-21] MEDS: MIRTAZAPINE 15 MG TABLET (FP) PO SCH (21:19)
[2022-08-21] MEDS: LISINOPRIL 20 MG TABLET PO SCH (21:19)
[2022-08-21] MEDS: hydrOXYzine PAMOATE 50 MG CAPSULE (FP) PO SCH (21:21)
[2022-08-22] MEDS: morphine SULFATE 4 MG/ML VIAL IVPUSH PRN ×2 (01:16→05:51)
[2022-08-22] MEDS: ACETAMINOPHEN 325 MG TABLET (FP) PO PRN (02:55)
[2022-08-22] MEDS: HYDROmorphone HCl 2 MG/ML VIAL IVPUSH PRN ×4 (04:07→21:23)
[2022-08-22] MEDS: DOCUSATE SODIUM 100 MG CAPSULE (FP) PO SCH ×3 (05:03→21:18)
[2022-08-22] MEDS: LACTATED RINGERS SOLUTION 1,000 ML/1,000 ML INFUS.BAG IV SCH ×2 (06:35→18:25)
[2022-08-22 07:35] LABS: HEMATOCRIT 24.3 % (32.4-45.2); HEMOGLOBIN 8.3 GM/dL (10.7-15.3); MCH 28.7 pg (25.7-33.7); MCHC 34.1 g/dl (32.0-36.0); MEAN PLT VOLUME 7.1 fl (7.5-11.1); PLATELET COUNT 472 10^3/uL (134-434); RDW 18.2 % (11.6-15.6); WHITE BLOOD COUNT 13.4 K/mm3 (4.0-10.0)
[2022-08-22 07:57] LABS: BLOOD UREA NITROGEN 9.4 mg/dL (7-18); CALCIUM 8.6 mg/dL (8.5-10.1)
[2022-08-22 07:58] LABS: MAGNESIUM 2.2 mg/dL (1.8-2.4)
[2022-08-22 08:00] LABS: CREATININE 0.7 mg/dL (0.55-1.3); PHOSPHOROUS 3.2 mg/dL (2.5-4.9)
[2022-08-22] MEDS: PANTOPRAZOLE SODIUM 40 MG VIAL IVPUSH SCH (09:26)
[2022-08-22] MEDS: busPIRone HCL 5 MG TABLET PO SCH ×2 (09:26→21:17)
[2022-08-22] MEDS: APIXABAN 5 MG TABLET PO SCH (09:26)
[2022-08-22] MEDS: CEFTRIAXONE 1 GM in DEXTROSE 5%-WATER - 50 ML IVPB SCH (09:26)
[2022-08-22] MEDS: POLYETHYLENE GLYCOL (HEALTHYLAX) 3350 17 GM PACKET PO SCH (09:26)
[2022-08-22] MEDS: GABAPENTIN 100 MG CAPSULE PO SCH ×2 (09:26→21:19)
[2022-08-22] MEDS ORDERED: ALPRAZolam 0.25 MG TABLET PO ONE (09:59)
[2022-08-22] MEDS ORDERED: SEVOFLURANE 250 ML BTL ONE (12:35)
[2022-08-22] MEDS ORDERED: LIDOCAINE HCL 1%, 10 MG/ML (20ML VIAL) ONE (12:38)
[2022-08-22] MEDS ORDERED: HEPARIN NA (PORCINE) 5,000 UNITS/ML 1ML VIAL ONE ×2 (12:38→14:13)
[2022-08-22] MEDS ORDERED: KETAMINE HCL 500 MG/10 ML VIAL ONE (13:23)
[2022-08-22] MEDS ORDERED: ONDANSETRON 4 MG/2 ML VIAL ONE (13:32)
[2022-08-22] MEDS ORDERED: LIDOCAINE HCL 1%, 10 MG/ML (20ML VIAL) NR ONE (13:40)
[2022-08-22] MEDS ORDERED: HEPARIN NA (PORCINE) 5,000 UNITS/ML 1ML VIAL SQ ONE (13:50)
[2022-08-22] MEDS ORDERED: HEPARIN INFUSION - 25,000 UNITS/500 ML INFUS.BAG IVPB ONE (14:13)
[2022-08-22] MEDS ORDERED: MIDAZOLAM HCL 2 MG/2 ML SINGLE DOSE VIAL ONE (14:46)
[2022-08-22] MEDS: HEPARIN - 25,000 UNIT in SODIUM CHLORIDE 495 ML IV SCH (15:15)
[2022-08-22] MEDS ORDERED: HEPARIN INFUSION - 25,000 UNITS/500 ML INFUS.BAG IVPB SCH (16:00)
[2022-08-22] MEDS: SODIUM CHLORIDE 1,000 ML IV SCH (16:09)
[2022-08-22] MEDS: DEXMEDETOMIDINE PREMIX 400 MCG/100 ML BAG IVPB SCH (16:09)
[2022-08-22] MEDS: SODIUM CHLORIDE CVP SCH (16:10)
[2022-08-22] MEDS: ALTEPLASE CVP SCH (16:10)
[2022-08-22] MEDS: CHLORHEXIDINE GLUCONATE 4% CLEANSER FOR DECOLONIZATION TP SCH (21:18)
[2022-08-22] MEDS: ATORVASTATIN CA 40 MG TABLET (FP) PO SCH (21:18)
[2022-08-22] MEDS: MELATONIN 5 MG TABLETS PO SCH (21:18)
[2022-08-22] MEDS: LISINOPRIL 20 MG TABLET PO SCH (21:19)
[2022-08-22] MEDS: MIRTAZAPINE 15 MG TABLET (FP) PO SCH (21:20)
[2022-08-22] MEDS: hydrOXYzine PAMOATE 50 MG CAPSULE (FP) PO SCH (21:34)
[2022-08-22 21:45] LABS: HEMATOCRIT 11.9 % (32.4-45.2); MCH 29.6 pg (25.7-33.7); MCHC 32.2 g/dl (32.0-36.0); MEAN CELL VOLUME 92.1 fl (80-96); MEAN PLT VOLUME 8.9 fl (7.5-11.1); PLATELET COUNT 438 10^3/uL (134-434); RDW 23.7 % (11.6-15.6); WHITE BLOOD COUNT 18.4 K/mm3 (4.0-10.0)
[2022-08-22 21:52] LABS: ADD RBC MORPHOLOGY YES; HEMOGLOBIN 3.8 GM/dL (10.7-15.3)
[2022-08-22 22:31] LABS: ANISOCYTOSIS 3+; MACROCYTOSIS 2+; TARGET CELLS 2+
[2022-08-22 22:55] LABS: BASO % 0.5 % (0-2.0); EOS % 0.4 % (0-4.5); HEMATOCRIT 23.2 % (32.4-45.2); HEMOGLOBIN 7.7 GM/dL (10.7-15.3); LYMPH % 14.5 % (8-40); MCH 27.8 pg (25.7-33.7); MCHC 33.3 g/dl (32.0-36.0); MEAN CELL VOLUME 83.3 fl (80-96); MEAN PLT VOLUME 6.7 fl (7.5-11.1); MONO % 7.9 % (3.8-10.2); NEUT % 76.7 % (42.8-82.8); PLATELET COUNT 415 10^3/uL (134-434); RBC 2.78 M/mm3 (3.60-5.2); RDW 17.5 % (11.6-15.6); WHITE BLOOD COUNT 13.3 K/mm3 (4.0-10.0)
[2022-08-22 23:08] LABS: INR 1.42 (0.83-1.09); PROTHROMBIN TIME (PATIENT) 16.4 SEC (9.7-13.0)
[2022-08-22 23:11] LABS: ACTIVATED PTT 21.8 SECONDS (25.2-36.5)
[2022-08-22] MEDS ORDERED: morphine SULFATE 4 MG/ML VIAL IVPUSH ONE (23:19)
[2022-08-22 23:22] LABS: CALCIUM 8.3 mg/dL (8.5-10.1)
[2022-08-22 23:23] LABS: ALBUMIN 2.6 g/dl (3.4-5.0); BLOOD UREA NITROGEN 7.9 mg/dL (7-18)
[2022-08-22 23:26] LABS: CREATININE 0.6 mg/dL (0.55-1.3); PHOSPHOROUS 2.8 mg/dL (2.5-4.9)
[2022-08-22 23:27] LABS: BILIRUBIN,TOTAL 0.4 mg/dL (0.2-1)
[2022-08-22 23:28] LABS: TOT PROT 6.1 g/dl (6.4-8.2)
[2022-08-23] MEDS: HYDROmorphone HCl 2 MG/ML VIAL IVPUSH PRN ×4 (03:23→16:00)
[2022-08-23] MEDS: DOCUSATE SODIUM 100 MG CAPSULE (FP) PO SCH ×3 (05:38→23:32)
[2022-08-23 05:46] LABS: BASO % 0.2 % (0-2.0); EOS % 0.1 % (0-4.5); HEMATOCRIT 22.2 % (32.4-45.2); HEMOGLOBIN 7.4 GM/dL (10.7-15.3); LYMPH % 11.4 % (8-40); MCH 27.7 pg (25.7-33.7); MCHC 33.3 g/dl (32.0-36.0); MEAN CELL VOLUME 83.1 fl (80-96); MEAN PLT VOLUME 7.1 fl (7.5-11.1); MONO % 6.6 % (3.8-10.2); NEUT % 81.7 % (42.8-82.8); PLATELET COUNT 423 10^3/uL (134-434); RBC 2.67 M/mm3 (3.60-5.2); RDW 17.5 % (11.6-15.6); WHITE BLOOD COUNT 13.8 K/mm3 (4.0-10.0)
[2022-08-23 06:14] LABS: ALBUMIN 2.6 g/dl (3.4-5.0); CALCIUM 8.5 mg/dL (8.5-10.1); MAGNESIUM 1.9 mg/dL (1.8-2.4)
[2022-08-23 06:15] LABS: BLOOD UREA NITROGEN 9.3 mg/dL (7-18)
[2022-08-23 06:18] LABS: CREATININE 0.6 mg/dL (0.55-1.3)
[2022-08-23 06:19] LABS: BILIRUBIN,TOTAL 0.5 mg/dL (0.2-1)
[2022-08-23 06:23] LABS: INR 1.4 (0.83-1.09); PROTHROMBIN TIME (PATIENT) 16.2 SEC (9.7-13.0)
[2022-08-23 06:25] LABS: ACTIVATED PTT 31.5 SECONDS (25.2-36.5)
[2022-08-23] MEDS ORDERED: DEXMEDETOMIDINE HCL 200 MCG/2 ML IVPB ONE (07:05)
[2022-08-23] MEDS: ALTEPLASE CVP SCH (08:38)
[2022-08-23] MEDS: SODIUM CHLORIDE CVP SCH (08:38)
[2022-08-23] MEDS: POLYETHYLENE GLYCOL (HEALTHYLAX) 3350 17 GM PACKET PO SCH (09:36)
[2022-08-23] MEDS: busPIRone HCL 5 MG TABLET PO SCH ×2 (09:37→23:32)
[2022-08-23] MEDS: GABAPENTIN 100 MG CAPSULE PO SCH ×2 (09:37→23:32)
[2022-08-23] MEDS: PANTOPRAZOLE SODIUM 40 MG VIAL IVPUSH SCH (09:37)
[2022-08-23] MEDS: CEFTRIAXONE 1 GM in DEXTROSE 5%-WATER - 50 ML IVPB SCH (09:38)
[2022-08-23 11:35] LABS: BASO % 0.2 % (0-2.0); EOS % 0.1 % (0-4.5); HEMATOCRIT 21.5 % (32.4-45.2); HEMOGLOBIN 7.3 GM/dL (10.7-15.3); LYMPH % 12.7 % (8-40); MCH 28.3 pg (25.7-33.7); MCHC 33.8 g/dl (32.0-36.0); MEAN CELL VOLUME 83.7 fl (80-96); MEAN PLT VOLUME 7.1 fl (7.5-11.1); MONO % 6.5 % (3.8-10.2); NEUT % 80.5 % (42.8-82.8); PLATELET COUNT 416 10^3/uL (134-434); RBC 2.56 M/mm3 (3.60-5.2); RDW 17.6 % (11.6-15.6); WHITE BLOOD COUNT 14.5 K/mm3 (4.0-10.0)
[2022-08-23 11:59] LABS: ALBUMIN 2.6 g/dl (3.4-5.0); BLOOD UREA NITROGEN 9.6 mg/dL (7-18); CALCIUM 8.5 mg/dL (8.5-10.1)
[2022-08-23 12:02] LABS: CREATININE 0.6 mg/dL (0.55-1.3)
[2022-08-23 12:04] LABS: BILIRUBIN,TOTAL 0.6 mg/dL (0.2-1)
[2022-08-23] MEDS ORDERED: morphine SULFATE 4 MG/ML VIAL IVPUSH PRN (13:47)
[2022-08-23] MEDS: BISACODYL 5 MG TABLET.DR (FP) PO PRN (13:50)
[2022-08-23] MEDS ORDERED: HYDROmorphone HCl 2 MG/ML VIAL IVPUSH PRN (13:52)
[2022-08-23] MEDS: SODIUM CHLORIDE 1,000 ML IV SCH ×2 (14:00→16:00)
[2022-08-23] MEDS: morphine SULFATE 4 MG/ML VIAL IVPUSH PRN ×2 (14:02→21:50)
[2022-08-23] MEDS: DEXMEDETOMIDINE PREMIX 400 MCG/100 ML BAG IVPB SCH (15:45)
[2022-08-23] MEDS: HEPARIN - 25,000 UNIT in SODIUM CHLORIDE 495 ML IV SCH (16:00)
[2022-08-23] MEDS ORDERED: HEPARIN NA (PORCINE) 5,000 UNITS/ML 1ML VIAL ONE ×2 (16:10→17:14)
[2022-08-23] MEDS ORDERED: LIDOCAINE HCL 1%, 10 MG/ML (20ML VIAL) ONE (16:10)
[2022-08-23] MEDS ORDERED: PROPOFOL 20 ML ONE ×4 (16:42→19:02)
[2022-08-23] MEDS ORDERED: MIDAZOLAM HCL 2 MG/2 ML SINGLE DOSE VIAL ONE (16:42)
[2022-08-23] MEDS ORDERED: LIDOCAINE HCL 1%, 10 MG/ML (20ML VIAL) NR ONE (17:22)
[2022-08-23] MEDS ORDERED: PHENYLEPHRINE HCL 10 MG/1 ML SINGLE DOSE VIAL ONE (17:29)
[2022-08-23] MEDS ORDERED: POVIDONE-IODINE OINTMENT 10% - 28.4 GM TUBE ONE (19:25)
[2022-08-23] MEDS ORDERED: HEPARIN - 25,000 UNIT in SODIUM CHLORIDE 495 ML IV SCH (20:15)
[2022-08-23] MEDS ORDERED: BISACODYL 10 MG SUPP.RECT PR ONE (20:41)
[2022-08-23] MEDS: HEPARIN NA (PORCINE) 5,000 UNITS/ML 1ML VIAL IVPUSH PRN (21:50)
[2022-08-23] MEDS ORDERED: SODIUM PHOSPHATE/NA BIPHOS 133 ML ENEMA RC ONE (22:55)
[2022-08-23 23:24] LABS: HEMATOCRIT 30.7 % (32.4-45.2); HEMOGLOBIN 10.4 GM/dL (10.7-15.3); MCH 29.3 pg (25.7-33.7); MEAN CELL VOLUME 86.2 fl (80-96); PLATELET COUNT 277 10^3/uL (134-434); RBC 3.57 M/mm3 (3.60-5.2); RDW 14.6 % (11.6-15.6); WHITE BLOOD COUNT 21.2 K/mm3 (4.0-10.0)
[2022-08-23] MEDS: MIRTAZAPINE 15 MG TABLET (FP) PO SCH (23:32)
[2022-08-23] MEDS: CHLORHEXIDINE GLUCONATE 4% CLEANSER FOR DECOLONIZATION TP SCH (23:32)
[2022-08-23] MEDS: LISINOPRIL 20 MG TABLET PO SCH (23:32)
[2022-08-23] MEDS: ATORVASTATIN CA 40 MG TABLET (FP) PO SCH (23:32)
[2022-08-23] MEDS: MELATONIN 5 MG TABLETS PO SCH (23:32)
[2022-08-23] MEDS: hydrOXYzine PAMOATE 50 MG CAPSULE (FP) PO SCH (23:43)
[2022-08-23 23:46] LABS: BLOOD UREA NITROGEN 11.2 mg/dL (7-18)
[2022-08-23 23:49] LABS: CREATININE 0.7 mg/dL (0.55-1.3)
[2022-08-23 23:51] LABS: CALCIUM 7.2 mg/dL (8.5-10.1)
[2022-08-24] MEDS: morphine SULFATE 4 MG/ML VIAL IVPUSH PRN ×3 (02:41→23:56)
[2022-08-24] MEDS: HYDROmorphone HCl 2 MG/ML VIAL IVPUSH PRN ×4 (05:24→22:04)
[2022-08-24 08:34] LABS: BASO % 0.2 % (0-2.0); EOS % 0.1 % (0-4.5); HEMATOCRIT 31.8 % (32.4-45.2); HEMOGLOBIN 11.1 GM/dL (10.7-15.3); LYMPH % 18.1 % (8-40); MCH 29.5 pg (25.7-33.7); MEAN CELL VOLUME 84.5 fl (80-96); MEAN PLT VOLUME 7.5 fl (7.5-11.1); MONO % 8.4 % (3.8-10.2); NEUT % 73.2 % (42.8-82.8); PLATELET COUNT 264 10^3/uL (134-434); RBC 3.76 M/mm3 (3.60-5.2); RDW 14.9 % (11.6-15.6); WHITE BLOOD COUNT 19.1 K/mm3 (4.0-10.0)
[2022-08-24] MEDS: GABAPENTIN 100 MG CAPSULE PO SCH ×2 (09:08→22:01)
[2022-08-24] MEDS: HEPARIN NA (PORCINE) 5,000 UNITS/ML 1ML VIAL IVPUSH PRN (09:08)
[2022-08-24] MEDS: PANTOPRAZOLE SODIUM 40 MG VIAL IVPUSH SCH (09:08)
[2022-08-24] MEDS: busPIRone HCL 5 MG TABLET PO SCH ×2 (09:08→22:00)
[2022-08-24] MEDS: CEFTRIAXONE 1 GM in DEXTROSE 5%-WATER - 50 ML IVPB SCH (09:08)
[2022-08-24] MEDS: POLYETHYLENE GLYCOL (HEALTHYLAX) 3350 17 GM PACKET PO SCH (09:18)
[2022-08-24] MEDS: HEPARIN - 25,000 UNIT in SODIUM CHLORIDE 495 ML IV SCH (09:25)
[2022-08-24] MEDS ORDERED: HEPARIN NA (PORCINE) 5,000 UNITS/ML 1ML VIAL ONE ×2 (10:58→14:15)
[2022-08-24] MEDS ORDERED: PROPOFOL 20 ML ONE (11:43)
[2022-08-24] MEDS ORDERED: ROCURONIUM BROMIDE 50 MG/5 ML SYRINGE ONE (11:43)
[2022-08-24] MEDS ORDERED: MIDAZOLAM HCL 2 MG/2 ML SINGLE DOSE VIAL ONE (11:43)
[2022-08-24] MEDS ORDERED: ONDANSETRON 4 MG/2 ML VIAL ONE (11:44)
[2022-08-24] MEDS ORDERED: DEXAMETHASONE SOD PHOSPHATE 4 MG/1 ML VIAL ONE ×2 (11:44→13:01)
[2022-08-24] MEDS ORDERED: DESFLURANE GAS 240 ML BOTTLE IH ONE (11:47)
[2022-08-24] MEDS ORDERED: LIDOCAINE HCL/PF 2% SDV 5ML VIAL ONE (11:50)
[2022-08-24] MEDS ORDERED: DEXMEDETOMIDINE HCL 200 MCG/2 ML IVPB ONE (11:52)
[2022-08-24] MEDS ORDERED: VANCOMYCIN 1 GM in NS (PRE-DOCKED) 1,000 MG/250 ML IVPB ONE (13:03)
[2022-08-24] MEDS ORDERED: VANCOMYCIN 1,000 MG VIAL (RESTRICTED TO ID ONLY) ONE (13:10)
[2022-08-24] MEDS ORDERED: SEVOFLURANE 250 ML BTL ONE (13:10)
[2022-08-24] MEDS ORDERED: HEPARIN NA (PORCINE) 5,000 UNITS/ML 1ML VIAL SQ ONE (13:34)
[2022-08-24] MEDS: DOCUSATE SODIUM 100 MG CAPSULE (FP) PO SCH ×2 (14:00→22:00)
[2022-08-24] MEDS ORDERED: GLYCOPYRROLATE 0.2 MG/1 ML VIAL ONE (14:31)
[2022-08-24] MEDS ORDERED: NEOSTIGMINE METHYLSULFATE 0.5 MG/ML - 10 ML MDV ONE (14:31)
[2022-08-24] MEDS ORDERED: IOHEXOL 300 MG/ML INFUS..BTL IV ONE (15:14)
[2022-08-24] MEDS: SODIUM CHLORIDE 1,000 ML IV SCH (17:54)
[2022-08-24] MEDS: ACETAMINOPHEN 325 MG TABLET (FP) PO PRN (20:02)
[2022-08-24] MEDS: ATORVASTATIN CA 40 MG TABLET (FP) PO SCH (22:01)
[2022-08-24] MEDS: MELATONIN 5 MG TABLETS PO SCH (22:01)
[2022-08-24] MEDS: LISINOPRIL 20 MG TABLET PO SCH (22:01)
[2022-08-24] MEDS: CHLORHEXIDINE GLUCONATE 4% CLEANSER FOR DECOLONIZATION TP SCH (22:01)
[2022-08-24] MEDS: MIRTAZAPINE 15 MG TABLET (FP) PO SCH (22:02)
[2022-08-24] MEDS: hydrOXYzine PAMOATE 50 MG CAPSULE (FP) PO SCH (22:04)
[2022-08-25] MEDS: HEPARIN - 25,000 UNIT in SODIUM CHLORIDE 495 ML IV SCH ×2 (00:35→00:51)
[2022-08-25] MEDS: HYDROmorphone HCl 2 MG/ML VIAL IVPUSH PRN ×3 (02:13→16:00)
[2022-08-25] MEDS: ACETAMINOPHEN 325 MG TABLET (FP) PO PRN ×4 (02:15→21:45)
[2022-08-25] MEDS: morphine SULFATE 4 MG/ML VIAL IVPUSH PRN ×3 (04:25→17:26)
[2022-08-25] MEDS: DOCUSATE SODIUM 100 MG CAPSULE (FP) PO SCH ×3 (06:03→21:38)
[2022-08-25 07:29] LABS: HEMATOCRIT 20.4 % (32.4-45.2); MCH 28.5 pg (25.7-33.7); MCHC 33.2 g/dl (32.0-36.0); MEAN CELL VOLUME 85.8 fl (80-96); MEAN PLT VOLUME 7.8 fl (7.5-11.1); PLATELET COUNT 268 10^3/uL (134-434); RBC 2.37 M/mm3 (3.60-5.2); WHITE BLOOD COUNT 20.5 K/mm3 (4.0-10.0)
[2022-08-25] MEDS ORDERED: ALPRAZolam 0.25 MG TABLET PO PRN (07:30)
[2022-08-25 07:31] LABS: HEMOGLOBIN 6.8 GM/dL (10.7-15.3)
[2022-08-25 07:32] LABS: INR 1.46 (0.83-1.09); PROTHROMBIN TIME (PATIENT) 16.8 SEC (9.7-13.0)
[2022-08-25 08:05] LABS: BLOOD UREA NITROGEN 7.2 mg/dL (7-18); CALCIUM 7.3 mg/dL (8.5-10.1)
[2022-08-25 08:09] LABS: CREATININE 0.6 mg/dL (0.55-1.3); PHOSPHOROUS 1.9 mg/dL (2.5-4.9)
[2022-08-25 08:11] LABS: BILIRUBIN,TOTAL 0.5 mg/dL (0.2-1); TOT PROT 4.5 g/dl (6.4-8.2)
[2022-08-25 08:15] LABS: ALBUMIN 1.9 g/dl (3.4-5.0)
[2022-08-25 08:42] LABS: ANISOCYTOSIS 3+; MACROCYTOSIS 0
[2022-08-25] MEDS: busPIRone HCL 5 MG TABLET PO SCH ×2 (09:00→21:39)
[2022-08-25] MEDS: GABAPENTIN 100 MG CAPSULE PO SCH ×2 (09:00→21:40)
[2022-08-25] MEDS: POLYETHYLENE GLYCOL (HEALTHYLAX) 3350 17 GM PACKET PO SCH (09:00)
[2022-08-25] MEDS: PANTOPRAZOLE SODIUM 40 MG VIAL IVPUSH SCH (09:04)
[2022-08-25] MEDS: CEFTRIAXONE 1 GM in DEXTROSE 5%-WATER - 50 ML IVPB SCH (09:05)
[2022-08-25] MEDS ORDERED: NAPH,MB-DB/K PH,MBDB POWDER PACKET PO ONE (10:44)
[2022-08-25 18:26] LABS: BASO % 0.2 % (0-2.0); EOS % 0.1 % (0-4.5); HEMATOCRIT 28.4 % (32.4-45.2); HEMOGLOBIN 9.8 GM/dL (10.7-15.3); LYMPH % 14.2 % (8-40); MCH 29.8 pg (25.7-33.7); MCHC 34.7 g/dl (32.0-36.0); MEAN CELL VOLUME 85.8 fl (80-96); MEAN PLT VOLUME 7.4 fl (7.5-11.1); MONO % 9.8 % (3.8-10.2); NEUT % 75.7 % (42.8-82.8); PLATELET COUNT 235 10^3/uL (134-434); RBC 3.31 M/mm3 (3.60-5.2); RDW 13.9 % (11.6-15.6); WHITE BLOOD COUNT 18.3 K/mm3 (4.0-10.0)
[2022-08-25] MEDS: traZODone HCL 50 MG TABLET (FP) PO SCH (21:39)
[2022-08-25] MEDS: CHLORHEXIDINE GLUCONATE 4% CLEANSER FOR DECOLONIZATION TP SCH (21:40)
[2022-08-25] MEDS: MELATONIN 5 MG TABLETS PO SCH (21:40)
[2022-08-25] MEDS: MIRTAZAPINE 15 MG TABLET (FP) PO SCH (21:41)
[2022-08-25] MEDS: LISINOPRIL 20 MG TABLET PO SCH (21:41)
[2022-08-25] MEDS: hydrOXYzine PAMOATE 50 MG CAPSULE (FP) PO SCH (21:47)
[2022-08-26] MEDS: morphine SULFATE 4 MG/ML VIAL IVPUSH PRN ×3 (00:05→09:50)
[2022-08-26] MEDS: SODIUM CHLORIDE 1,000 ML IV SCH ×2 (03:00→16:01)
[2022-08-26] MEDS: ACETAMINOPHEN 325 MG TABLET (FP) PO PRN (03:08)
[2022-08-26] MEDS: HYDROmorphone HCl 2 MG/ML VIAL IVPUSH PRN ×5 (04:00→23:41)
[2022-08-26] MEDS: DOCUSATE SODIUM 100 MG CAPSULE (FP) PO SCH ×3 (05:44→22:26)
[2022-08-26] MEDS ORDERED: ALPRAZolam 0.25 MG TABLET PO PRN (07:46)
[2022-08-26 07:54] LABS: HEMATOCRIT 28.9 % (32.4-45.2); HEMOGLOBIN 9.9 GM/dL (10.7-15.3); MCHC 34.1 g/dl (32.0-36.0); MEAN CELL VOLUME 85.1 fl (80-96); MEAN PLT VOLUME 7.9 fl (7.5-11.1); PLATELET COUNT 257 10^3/uL (134-434); RDW 14.4 % (11.6-15.6); WHITE BLOOD COUNT 17.2 K/mm3 (4.0-10.0)
[2022-08-26 08:01] LABS: INR 1.21 (0.83-1.09)
[2022-08-26 08:22] LABS: MAGNESIUM 2.3 mg/dL (1.8-2.4)
[2022-08-26 08:26] LABS: BLOOD UREA NITROGEN 5.8 mg/dL (7-18); CALCIUM 7.6 mg/dL (8.5-10.1)
[2022-08-26 08:28] LABS: CREATININE 0.5 mg/dL (0.55-1.3)
[2022-08-26 08:31] LABS: BILIRUBIN,TOTAL 0.6 mg/dL (0.2-1); TOT PROT 4.8 g/dl (6.4-8.2)
[2022-08-26] MEDS: HEPARIN NA (PORCINE) 5,000 UNITS/ML 1ML VIAL IVPUSH PRN ×2 (09:00→16:39)
[2022-08-26] MEDS ORDERED: NAPH,MB-DB/K PH,MBDB POWDER PACKET PO ONE (09:06)
[2022-08-26] MEDS: PANTOPRAZOLE SODIUM 40 MG VIAL IVPUSH SCH (09:52)
[2022-08-26] MEDS: POLYETHYLENE GLYCOL (HEALTHYLAX) 3350 17 GM PACKET PO SCH (09:52)
[2022-08-26] MEDS: GABAPENTIN 100 MG CAPSULE PO SCH ×2 (09:52→22:31)
[2022-08-26] MEDS: busPIRone HCL 5 MG TABLET PO SCH ×2 (09:55→22:28)
[2022-08-26] MEDS: morphine SO4 SUSTAINED ACTING 30 MG TABLET.SA PO SCH ×2 (13:15→22:30)
[2022-08-26] MEDS ORDERED: WARFARIN NA 3 MG TABLET PO SCH (18:00)
[2022-08-26] MEDS: WARFARIN NA 2.5 MG, WARFARIN NA 1 MG PO SCH ×2 (22:22→22:27)
[2022-08-26] MEDS: traZODone HCL 50 MG TABLET (FP) PO SCH (22:28)
[2022-08-26] MEDS: MELATONIN 5 MG TABLETS PO SCH (22:29)
[2022-08-26] MEDS: ATORVASTATIN CA 40 MG TABLET (FP) PO SCH (22:29)
[2022-08-26] MEDS: CHLORHEXIDINE GLUCONATE 4% CLEANSER FOR DECOLONIZATION TP SCH (22:29)
[2022-08-26] MEDS: MIRTAZAPINE 15 MG TABLET (FP) PO SCH (22:31)
[2022-08-26] MEDS: LISINOPRIL 20 MG TABLET PO SCH (22:31)
[2022-08-26] MEDS: hydrOXYzine PAMOATE 50 MG CAPSULE (FP) PO SCH (22:32)
[2022-08-27] MEDS: HEPARIN - 25,000 UNIT in SODIUM CHLORIDE 495 ML IV SCH ×2 (00:27→16:00)
[2022-08-27] MEDS: HEPARIN NA (PORCINE) 5,000 UNITS/ML 1ML VIAL IVPUSH PRN (00:28)
[2022-08-27] MEDS: SODIUM CHLORIDE 1,000 ML IV SCH ×2 (02:30→17:31)
[2022-08-27] MEDS: ACETAMINOPHEN 325 MG TABLET (FP) PO PRN ×3 (02:36→23:07)
[2022-08-27] MEDS: DOCUSATE SODIUM 100 MG CAPSULE (FP) PO SCH ×3 (05:02→20:59)
[2022-08-27] MEDS: HYDROmorphone HCl 2 MG/ML VIAL IVPUSH PRN ×4 (05:17→20:39)
[2022-08-27 07:05] LABS: BASO % 0.3 % (0-2.0); EOS % 0.3 % (0-4.5); HEMATOCRIT 29.5 % (32.4-45.2); LYMPH % 16.5 % (8-40); MEAN CELL VOLUME 85.3 fl (80-96); MEAN PLT VOLUME 7.5 fl (7.5-11.1); MONO % 7.5 % (3.8-10.2); NEUT % 75.4 % (42.8-82.8); PLATELET COUNT 253 10^3/uL (134-434); RBC 3.46 M/mm3 (3.60-5.2); RDW 14.7 % (11.6-15.6); WHITE BLOOD COUNT 17.3 K/mm3 (4.0-10.0)
[2022-08-27 07:13] LABS: INR 1.27 (0.83-1.09); PROTHROMBIN TIME (PATIENT) 14.6 SEC (9.7-13.0)
[2022-08-27 08:29] LABS: ALBUMIN 1.9 g/dl (3.4-5.0); BILIRUBIN,TOTAL 0.8 mg/dL (0.2-1); BLOOD UREA NITROGEN 5.4 mg/dL (7-18); CALCIUM 7.9 mg/dL (8.5-10.1); CREATININE 0.6 mg/dL (0.55-1.3); MAGNESIUM 2.2 mg/dL (1.8-2.4); PHOSPHOROUS 2.5 mg/dL (2.5-4.9)
[2022-08-27] MEDS: GABAPENTIN 100 MG CAPSULE PO SCH ×2 (09:23→21:00)
[2022-08-27] MEDS: POLYETHYLENE GLYCOL (HEALTHYLAX) 3350 17 GM PACKET PO SCH (09:23)
[2022-08-27] MEDS: PANTOPRAZOLE SODIUM 40 MG VIAL IVPUSH SCH (09:23)
[2022-08-27] MEDS: morphine SO4 SUSTAINED ACTING 30 MG TABLET.SA PO SCH ×2 (09:24→21:01)
[2022-08-27] MEDS: busPIRone HCL 5 MG TABLET PO SCH ×2 (09:27→21:00)
[2022-08-27] MEDS: WARFARIN NA 2.5 MG, WARFARIN NA 1 MG PO SCH (17:32)
[2022-08-27] MEDS: traZODone HCL 50 MG TABLET (FP) PO SCH (21:00)
[2022-08-27] MEDS: MELATONIN 5 MG TABLETS PO SCH (21:00)
[2022-08-27] MEDS: MIRTAZAPINE 15 MG TABLET (FP) PO SCH (21:00)
[2022-08-27] MEDS: ATORVASTATIN CA 40 MG TABLET (FP) PO SCH (21:00)
[2022-08-27] MEDS: hydrOXYzine PAMOATE 50 MG CAPSULE (FP) PO SCH (21:00)
[2022-08-27] MEDS: CHLORHEXIDINE GLUCONATE 4% CLEANSER FOR DECOLONIZATION TP SCH (21:01)
[2022-08-27] MEDS: LISINOPRIL 20 MG TABLET PO SCH (21:01)
[2022-08-28] MEDS: HYDROmorphone HCl 2 MG/ML VIAL IVPUSH PRN ×6 (01:25→22:05)
[2022-08-28] MEDS: ACETAMINOPHEN 325 MG TABLET (FP) PO PRN ×4 (05:35→22:05)
[2022-08-28] MEDS: DOCUSATE SODIUM 100 MG CAPSULE (FP) PO SCH ×3 (05:55→21:05)
[2022-08-28 07:38] LABS: HEMATOCRIT 26.7 % (32.4-45.2); HEMOGLOBIN 9.2 GM/dL (10.7-15.3); MCH 29.8 pg (25.7-33.7); MCHC 34.4 g/dl (32.0-36.0); MEAN CELL VOLUME 86.5 fl (80-96); MEAN PLT VOLUME 7.2 fl (7.5-11.1); PLATELET COUNT 272 10^3/uL (134-434); RBC 3.09 M/mm3 (3.60-5.2); RDW 14.9 % (11.6-15.6); WHITE BLOOD COUNT 15.4 K/mm3 (4.0-10.0)
[2022-08-28] MEDS: morphine SO4 SUSTAINED ACTING 30 MG TABLET.SA PO SCH ×2 (09:00→21:03)
[2022-08-28] MEDS: PANTOPRAZOLE SODIUM 40 MG VIAL IVPUSH SCH (09:01)
[2022-08-28] MEDS: SODIUM CHLORIDE 1,000 ML IV SCH ×2 (09:30→16:38)
[2022-08-28] MEDS: GABAPENTIN 100 MG CAPSULE PO SCH ×2 (09:39→21:04)
[2022-08-28] MEDS: POLYETHYLENE GLYCOL (HEALTHYLAX) 3350 17 GM PACKET PO SCH (09:39)
[2022-08-28] MEDS: busPIRone HCL 5 MG TABLET PO SCH ×2 (09:39→21:03)
[2022-08-28] MEDS ORDERED: HYDROmorphone HCl 2 MG/ML VIAL IVPUSH ONE (11:31)
[2022-08-28] MEDS: HEPARIN - 25,000 UNIT in SODIUM CHLORIDE 495 ML IV SCH (12:15)
[2022-08-28] MEDS: WARFARIN NA 2.5 MG, WARFARIN NA 1 MG PO SCH (17:49)
[2022-08-28] MEDS: MELATONIN 5 MG TABLETS PO SCH (21:03)
[2022-08-28] MEDS: traZODone HCL 50 MG TABLET (FP) PO SCH (21:04)
[2022-08-28] MEDS: MIRTAZAPINE 15 MG TABLET (FP) PO SCH (21:04)
[2022-08-28] MEDS: hydrOXYzine PAMOATE 50 MG CAPSULE (FP) PO SCH (21:05)
[2022-08-28] MEDS: CHLORHEXIDINE GLUCONATE 4% CLEANSER FOR DECOLONIZATION TP SCH (21:05)
[2022-08-28] MEDS: ATORVASTATIN CA 40 MG TABLET (FP) PO SCH (21:05)
[2022-08-28] MEDS: LISINOPRIL 20 MG TABLET PO SCH (21:05)
[2022-08-29] MEDS: HYDROmorphone HCl 2 MG/ML VIAL IVPUSH PRN ×3 (02:04→10:38)
[2022-08-29] MEDS: ACETAMINOPHEN 325 MG TABLET (FP) PO PRN ×2 (05:54→12:55)
[2022-08-29 07:29] LABS: ACTIVATED PTT 58.9 SECONDS (25.2-36.5)
[2022-08-29 07:33] LABS: BASO % 0.6 % (0-2.0); EOS % 0.8 % (0-4.5); HEMATOCRIT 27.3 % (32.4-45.2); HEMOGLOBIN 9.3 GM/dL (10.7-15.3); LYMPH % 15.6 % (8-40); MCH 29.6 pg (25.7-33.7); MCHC 34.3 g/dl (32.0-36.0); MEAN CELL VOLUME 86.5 fl (80-96); MEAN PLT VOLUME 7.2 fl (7.5-11.1); MONO % 7.2 % (3.8-10.2); NEUT % 75.8 % (42.8-82.8); PLATELET COUNT 311 10^3/uL (134-434); RBC 3.15 M/mm3 (3.60-5.2); RDW 14.9 % (11.6-15.6); WHITE BLOOD COUNT 12.7 K/mm3 (4.0-10.0)
[2022-08-29] MEDS: SODIUM CHLORIDE 1,000 ML IV SCH ×2 (08:20→13:20)
[2022-08-29] MEDS: HEPARIN - 25,000 UNIT in SODIUM CHLORIDE 495 ML IV SCH ×2 (08:23→13:20)
[2022-08-29 08:37] LABS: INR 2.11 (0.83-1.09); PROTHROMBIN TIME (PATIENT) 24.4 SEC (9.7-13.0)
[2022-08-29 08:55] LABS: ALBUMIN 1.7 g/dl (3.4-5.0); BILIRUBIN,TOTAL 0.3 mg/dL (0.2-1); BLOOD UREA NITROGEN 6.3 mg/dL (7-18); CALCIUM 8.1 mg/dL (8.5-10.1); CREATININE 0.6 mg/dL (0.55-1.3); TOT PROT 5.5 g/dl (6.4-8.2)
[2022-08-29] MEDS: PANTOPRAZOLE SODIUM 40 MG VIAL IVPUSH SCH (10:10)
[2022-08-29] MEDS: busPIRone HCL 5 MG TABLET PO SCH ×2 (10:10→21:43)
[2022-08-29] MEDS: morphine SO4 SUSTAINED ACTING 30 MG TABLET.SA PO SCH ×2 (10:11→21:42)
[2022-08-29] MEDS: POLYETHYLENE GLYCOL (HEALTHYLAX) 3350 17 GM PACKET PO SCH (10:12)
[2022-08-29] MEDS: GABAPENTIN 100 MG CAPSULE PO SCH ×2 (10:12→21:44)
[2022-08-29] MEDS ORDERED: BISACODYL 5 MG TABLET.DR (FP) PO PRN (12:56)
[2022-08-29] MEDS ORDERED: HEPARIN NA (PORCINE) 5,000 UNITS/ML 1ML VIAL IVPUSH PRN ×4 (12:56)
[2022-08-29] MEDS ORDERED: ONDANSETRON 4 MG/2 ML VIAL IVPUSH PRN (12:56)
[2022-08-29] MEDS ORDERED: HYDROmorphone HCl 2 MG/ML VIAL IVPUSH ONE (13:45)
[2022-08-29] MEDS: DOCUSATE SODIUM 100 MG CAPSULE (FP) PO SCH ×3 (13:52→21:46)
[2022-08-29] MEDS ORDERED: HYDROmorphone HCl 2 MG/ML VIAL IVPUSH PRN (15:03)
[2022-08-29] MEDS: HYDROmorphone HCl 2 MG/ML VIAL IVPB PRN (17:23)
[2022-08-29] MEDS ORDERED: HYDROmorphone HCl 2 MG/ML VIAL IVPB ONE (18:04)
[2022-08-29] MEDS: WARFARIN NA 2.5 MG, WARFARIN NA 1 MG PO SCH (18:27)
[2022-08-29] MEDS: traZODone HCL 50 MG TABLET (FP) PO SCH (21:41)
[2022-08-29] MEDS: MIRTAZAPINE 15 MG TABLET (FP) PO SCH (21:41)
[2022-08-29] MEDS: MELATONIN 5 MG TABLETS PO SCH (21:42)
[2022-08-29] MEDS: ATORVASTATIN CA 40 MG TABLET (FP) PO SCH (21:44)
[2022-08-29] MEDS: LISINOPRIL 20 MG TABLET PO SCH (21:44)
[2022-08-29] MEDS: hydrOXYzine PAMOATE 25 MG CAPSULE (FP) PO SCH (21:54)
[2022-08-29] MEDS ORDERED: hydrOXYzine PAMOATE 50 MG CAPSULE (FP) PO SCH (22:00)
[2022-08-30] MEDS: HYDROmorphone HCl 2 MG/ML VIAL IVPB PRN ×3 (01:59→17:17)
[2022-08-30] MEDS: DOCUSATE SODIUM 100 MG CAPSULE (FP) PO SCH ×3 (06:14→21:36)
[2022-08-30] MEDS: HEPARIN - 25,000 UNIT in SODIUM CHLORIDE 495 ML IV SCH ×3 (06:17→13:28)
[2022-08-30] MEDS: busPIRone HCL 5 MG TABLET PO SCH ×2 (09:52→21:37)
[2022-08-30] MEDS: morphine SO4 SUSTAINED ACTING 30 MG TABLET.SA PO SCH ×2 (09:52→21:38)
[2022-08-30] MEDS: POLYETHYLENE GLYCOL (HEALTHYLAX) 3350 17 GM PACKET PO SCH (09:53)
[2022-08-30] MEDS: GABAPENTIN 100 MG CAPSULE PO SCH ×2 (09:53→21:36)
[2022-08-30] MEDS: PANTOPRAZOLE SODIUM 40 MG VIAL IVPUSH SCH (09:54)
[2022-08-30 10:08] LABS: BASO % 0.3 % (0-2.0); EOS % 0.7 % (0-4.5); HEMATOCRIT 27.3 % (32.4-45.2); LYMPH % 11.7 % (8-40); MCH 28.4 pg (25.7-33.7); MEAN CELL VOLUME 86.2 fl (80-96); MEAN PLT VOLUME 7.5 fl (7.5-11.1); MONO % 6.1 % (3.8-10.2); NEUT % 81.2 % (42.8-82.8); PLATELET COUNT 394 10^3/uL (134-434); RBC 3.17 M/mm3 (3.60-5.2); RDW 15.4 % (11.6-15.6); WHITE BLOOD COUNT 11.5 K/mm3 (4.0-10.0)
[2022-08-30 10:10] LABS: INR 1.96 (0.83-1.09); PROTHROMBIN TIME (PATIENT) 22.7 SEC (9.7-13.0)
[2022-08-30 10:11] LABS: ACTIVATED PTT 52.2 SECONDS (25.2-36.5)
[2022-08-30 10:15] LABS: CALCIUM 8.4 mg/dL (8.5-10.1)
[2022-08-30 10:16] LABS: ALBUMIN 1.7 g/dl (3.4-5.0); BLOOD UREA NITROGEN 7.4 mg/dL (7-18)
[2022-08-30 10:19] LABS: CREATININE 0.7 mg/dL (0.55-1.3); PHOSPHOROUS 2.5 mg/dL (2.5-4.9)
[2022-08-30 10:20] LABS: BILIRUBIN,TOTAL 0.4 mg/dL (0.2-1)
[2022-08-30 10:21] LABS: TOT PROT 5.6 g/dl (6.4-8.2)
[2022-08-30] MEDS: SODIUM CHLORIDE 1,000 ML IV SCH ×2 (10:56→13:28)
[2022-08-30] MEDS: WARFARIN NA 2.5 MG, WARFARIN NA 1 MG PO SCH (17:06)
[2022-08-30] MEDS: ACETAMINOPHEN 325 MG TABLET (FP) PO PRN (21:35)
[2022-08-30] MEDS: traZODone HCL 50 MG TABLET (FP) PO SCH (21:36)
[2022-08-30] MEDS: LISINOPRIL 20 MG TABLET PO SCH (21:36)
[2022-08-30] MEDS: MIRTAZAPINE 15 MG TABLET (FP) PO SCH (21:37)
[2022-08-30] MEDS: ATORVASTATIN CA 40 MG TABLET (FP) PO SCH (21:37)
[2022-08-30] MEDS: MELATONIN 5 MG TABLETS PO SCH (21:38)
[2022-08-30] MEDS: hydrOXYzine PAMOATE 25 MG CAPSULE (FP) PO SCH (21:40)
[2022-08-31] MEDS: HEPARIN - 25,000 UNIT in SODIUM CHLORIDE 495 ML IV SCH ×2 (02:43→13:16)
[2022-08-31] MEDS: HYDROmorphone HCl 2 MG/ML VIAL IVPB PRN ×5 (04:46→22:56)
[2022-08-31] MEDS: DOCUSATE SODIUM 100 MG CAPSULE (FP) PO SCH ×4 (06:02→21:49)
[2022-08-31 09:14] LABS: HEMATOCRIT 26.4 % (32.4-45.2); HEMOGLOBIN 8.8 GM/dL (10.7-15.3); INR 2.07 (0.83-1.09); MCH 28.9 pg (25.7-33.7); MCHC 33.3 g/dl (32.0-36.0); MEAN CELL VOLUME 86.8 fl (80-96); MEAN PLT VOLUME 7.4 fl (7.5-11.1); PLATELET COUNT 417 10^3/uL (134-434); RBC 3.04 M/mm3 (3.60-5.2); RDW 15.4 % (11.6-15.6); WHITE BLOOD COUNT 10.4 K/mm3 (4.0-10.0)
[2022-08-31 09:17] LABS: ACTIVATED PTT 50.2 SECONDS (25.2-36.5)
[2022-08-31] MEDS: busPIRone HCL 5 MG TABLET PO SCH ×2 (10:02→21:48)
[2022-08-31] MEDS: morphine SO4 SUSTAINED ACTING 30 MG TABLET.SA PO SCH ×2 (10:02→21:48)
[2022-08-31] MEDS: POLYETHYLENE GLYCOL (HEALTHYLAX) 3350 17 GM PACKET PO SCH (10:03)
[2022-08-31] MEDS: PANTOPRAZOLE SODIUM 40 MG VIAL IVPUSH SCH (10:03)
[2022-08-31] MEDS: GABAPENTIN 100 MG CAPSULE PO SCH ×2 (10:03→21:47)
[2022-08-31 10:11] LABS: ALBUMIN 1.7 g/dl (3.4-5.0); BILIRUBIN,TOTAL 0.3 mg/dL (0.2-1); BLOOD UREA NITROGEN 8.6 mg/dL (7-18); CALCIUM 8.5 mg/dL (8.5-10.1); CREATININE 0.5 mg/dL (0.55-1.3); MAGNESIUM 2.2 mg/dL (1.8-2.4); PHOSPHOROUS 2.8 mg/dL (2.5-4.9); TOT PROT 5.7 g/dl (6.4-8.2)
[2022-08-31] MEDS: FUROSEMIDE 40 MG/4 ML INJECTABLE VIAL IVPUSH SCH (10:56)
[2022-08-31] MEDS: SILVER SULFADIAZINE 1% TOP CREAM 50 GM JAR TP SCH (12:10)
[2022-08-31] MEDS: ACETAMINOPHEN 325 MG TABLET (FP) PO PRN (12:30)
[2022-08-31] MEDS ORDERED: HYDROmorphone HCL CARPU-JECT 2 MG/1 ML DISP.SYRIN IVPB PRN (13:34)
[2022-08-31] MEDS: WARFARIN NA 2.5 MG, WARFARIN NA 1 MG PO SCH (17:16)
[2022-08-31] MEDS: traZODone HCL 50 MG TABLET (FP) PO SCH (21:47)
[2022-08-31] MEDS: MELATONIN 5 MG TABLETS PO SCH (21:47)
[2022-08-31] MEDS: LISINOPRIL 20 MG TABLET PO SCH (21:48)
[2022-08-31] MEDS: hydrOXYzine PAMOATE 25 MG CAPSULE (FP) PO SCH (21:49)
[2022-08-31] MEDS: ATORVASTATIN CA 40 MG TABLET (FP) PO SCH (21:49)
[2022-08-31] MEDS: MIRTAZAPINE 15 MG TABLET (FP) PO SCH (22:55)
[2022-09-01] MEDS: HEPARIN - 25,000 UNIT in SODIUM CHLORIDE 495 ML IV SCH ×2 (00:34→13:05)
[2022-09-01] MEDS: HYDROmorphone HCl 2 MG/ML VIAL IVPB PRN ×4 (02:26→17:58)
[2022-09-01] MEDS: DOCUSATE SODIUM 100 MG CAPSULE (FP) PO SCH ×3 (05:02→21:28)
[2022-09-01] MEDS: ACETAMINOPHEN 325 MG TABLET (FP) PO PRN (09:17)
[2022-09-01] MEDS: morphine SO4 SUSTAINED ACTING 30 MG TABLET.SA PO SCH ×2 (09:18→21:28)
[2022-09-01] MEDS: PANTOPRAZOLE SODIUM 40 MG VIAL IVPUSH SCH (09:33)
[2022-09-01] MEDS: FUROSEMIDE 40 MG/4 ML INJECTABLE VIAL IVPUSH SCH (09:36)
[2022-09-01] MEDS: SILVER SULFADIAZINE 1% TOP CREAM 50 GM JAR TP SCH (10:02)
[2022-09-01] MEDS: GABAPENTIN 100 MG CAPSULE PO SCH ×2 (10:02→21:27)
[2022-09-01] MEDS: busPIRone HCL 5 MG TABLET PO SCH ×2 (10:02→21:28)
[2022-09-01] MEDS: POLYETHYLENE GLYCOL (HEALTHYLAX) 3350 17 GM PACKET PO SCH (10:02)
[2022-09-01 11:05] LABS: HEMATOCRIT 25.2 % (32.4-45.2); HEMOGLOBIN 8.5 GM/dL (10.7-15.3); MCH 29.5 pg (25.7-33.7); MCHC 33.9 g/dl (32.0-36.0); MEAN CELL VOLUME 87.1 fl (80-96); MEAN PLT VOLUME 7.1 fl (7.5-11.1); PLATELET COUNT 401 10^3/uL (134-434); RBC 2.89 M/mm3 (3.60-5.2); RDW 15.3 % (11.6-15.6)
[2022-09-01 11:06] LABS: INR 2.42 (0.83-1.09); PROTHROMBIN TIME (PATIENT) 28.1 SEC (9.7-13.0)
[2022-09-01 11:24] LABS: ALBUMIN 1.6 g/dl (3.4-5.0); BLOOD UREA NITROGEN 7.5 mg/dL (7-18); MAGNESIUM 2.2 mg/dL (1.8-2.4)
[2022-09-01 11:27] LABS: CREATININE 0.5 mg/dL (0.55-1.3); PHOSPHOROUS 2.2 mg/dL (2.5-4.9)
[2022-09-01 11:28] LABS: BILIRUBIN,TOTAL 0.3 mg/dL (0.2-1); TOT PROT 5.6 g/dl (6.4-8.2)
[2022-09-01] MEDS ORDERED: NAPH,MB-DB/K PH,MBDB POWDER PACKET PO ONE (14:19)
[2022-09-01] MEDS: WARFARIN NA 2.5 MG, WARFARIN NA 1 MG PO SCH (17:10)
[2022-09-01] MEDS: traZODone HCL 50 MG TABLET (FP) PO SCH (21:27)
[2022-09-01] MEDS: LISINOPRIL 20 MG TABLET PO SCH (21:27)
[2022-09-01] MEDS: ATORVASTATIN CA 40 MG TABLET (FP) PO SCH (21:27)
[2022-09-01] MEDS: MELATONIN 5 MG TABLETS PO SCH (21:28)
[2022-09-01] MEDS: MIRTAZAPINE 15 MG TABLET (FP) PO SCH (21:28)
[2022-09-01] MEDS: hydrOXYzine PAMOATE 25 MG CAPSULE (FP) PO SCH (21:32)
[2022-09-02] MEDS: HYDROmorphone HCl 2 MG/ML VIAL IVPB PRN ×4 (01:57→18:18)
[2022-09-02] MEDS: ACETAMINOPHEN 325 MG TABLET (FP) PO PRN (05:22)
[2022-09-02] MEDS: DOCUSATE SODIUM 100 MG CAPSULE (FP) PO SCH ×3 (05:25→22:48)
[2022-09-02] MEDS: HEPARIN - 25,000 UNIT in SODIUM CHLORIDE 495 ML IV SCH ×2 (09:12→14:55)
[2022-09-02 09:52] LABS: BASO % 0.4 % (0-2.0); EOS % 0.4 % (0-4.5); HEMATOCRIT 26.4 % (32.4-45.2); HEMOGLOBIN 8.6 GM/dL (10.7-15.3); LYMPH % 17.9 % (8-40); MCH 28.1 pg (25.7-33.7); MCHC 32.4 g/dl (32.0-36.0); MEAN CELL VOLUME 86.6 fl (80-96); MEAN PLT VOLUME 7.6 fl (7.5-11.1); MONO % 6.4 % (3.8-10.2); NEUT % 74.9 % (42.8-82.8); PLATELET COUNT 443 10^3/uL (134-434); RBC 3.05 M/mm3 (3.60-5.2); RDW 15.4 % (11.6-15.6); WHITE BLOOD COUNT 10.3 K/mm3 (4.0-10.0)
[2022-09-02] MEDS: busPIRone HCL 5 MG TABLET PO SCH ×2 (10:05→21:19)
[2022-09-02] MEDS: morphine SO4 SUSTAINED ACTING 30 MG TABLET.SA PO SCH ×2 (10:05→21:18)
[2022-09-02] MEDS: FUROSEMIDE 40 MG/4 ML INJECTABLE VIAL IVPUSH SCH (10:05)
[2022-09-02] MEDS: POLYETHYLENE GLYCOL (HEALTHYLAX) 3350 17 GM PACKET PO SCH (10:05)
[2022-09-02] MEDS: PANTOPRAZOLE SODIUM 40 MG VIAL IVPUSH SCH (10:06)
[2022-09-02] MEDS: GABAPENTIN 100 MG CAPSULE PO SCH ×2 (10:06→21:19)
[2022-09-02] MEDS: SILVER SULFADIAZINE 1% TOP CREAM 50 GM JAR TP SCH (10:06)
[2022-09-02 10:10] LABS: ACTIVATED PTT 59.3 SECONDS (25.2-36.5)
[2022-09-02 10:12] LABS: INR 2.73 (0.83-1.09); PROTHROMBIN TIME (PATIENT) 31.7 SEC (9.7-13.0)
[2022-09-02] MEDS: ACETAMINOPHEN 500 MG TABLET (FP) PO SCH ×3 (12:30→23:24)
[2022-09-02 12:35] LABS: ALBUMIN 1.6 g/dl (3.4-5.0); BILIRUBIN,TOTAL 0.2 mg/dL (0.2-1); BLOOD UREA NITROGEN 9.1 mg/dL (7-18); CALCIUM 8.4 mg/dL (8.5-10.1); CREATININE 0.7 mg/dL (0.55-1.3); PHOSPHOROUS 2.5 mg/dL (2.5-4.9); TOT PROT 5.6 g/dl (6.4-8.2)
[2022-09-02] MEDS: WARFARIN NA 2.5 MG, WARFARIN NA 1 MG PO SCH (18:21)
[2022-09-02] MEDS: MELATONIN 5 MG TABLETS PO SCH (21:17)
[2022-09-02] MEDS: MIRTAZAPINE 15 MG TABLET (FP) PO SCH (21:17)
[2022-09-02] MEDS: ATORVASTATIN CA 40 MG TABLET (FP) PO SCH (21:17)
[2022-09-02] MEDS: LISINOPRIL 20 MG TABLET PO SCH (21:18)
[2022-09-02] MEDS: traZODone HCL 50 MG TABLET (FP) PO SCH (21:18)
[2022-09-02] MEDS: hydrOXYzine PAMOATE 25 MG CAPSULE (FP) PO SCH (21:19)
[2022-09-03] MEDS: HYDROmorphone HCl 2 MG/ML VIAL IVPB PRN (01:33)
[2022-09-03] MEDS: ACETAMINOPHEN 500 MG TABLET (FP) PO SCH ×2 (06:09→11:35)
[2022-09-03] MEDS: DOCUSATE SODIUM 100 MG CAPSULE (FP) PO SCH ×3 (06:22→22:07)
[2022-09-03 09:34] LABS: BASO % 0.5 % (0-2.0); EOS % 0.7 % (0-4.5); HEMATOCRIT 25.2 % (32.4-45.2); HEMOGLOBIN 8.3 GM/dL (10.7-15.3); LYMPH % 14.1 % (8-40); MCH 28.3 pg (25.7-33.7); MCHC 32.9 g/dl (32.0-36.0); MEAN PLT VOLUME 7.3 fl (7.5-11.1); MONO % 7.5 % (3.8-10.2); NEUT % 77.2 % (42.8-82.8); PLATELET COUNT 437 10^3/uL (134-434); RBC 2.93 M/mm3 (3.60-5.2); RDW 15.2 % (11.6-15.6); WHITE BLOOD COUNT 9.9 K/mm3 (4.0-10.0)
[2022-09-03 09:38] LABS: INR 3.41 (0.83-1.09); PROTHROMBIN TIME (PATIENT) 39.7 SEC (9.7-13.0)
[2022-09-03] MEDS: morphine SO4 SUSTAINED ACTING 30 MG TABLET.SA PO SCH ×2 (09:46→22:06)
[2022-09-03] MEDS: GABAPENTIN 100 MG CAPSULE PO SCH ×2 (09:46→22:07)
[2022-09-03] MEDS: busPIRone HCL 5 MG TABLET PO SCH ×2 (09:47→22:06)
[2022-09-03] MEDS: FUROSEMIDE 40 MG/4 ML INJECTABLE VIAL IVPUSH SCH (09:47)
[2022-09-03] MEDS: SILVER SULFADIAZINE 1% TOP CREAM 50 GM JAR TP SCH (09:55)
[2022-09-03] MEDS: PANTOPRAZOLE SODIUM 40 MG VIAL IVPUSH SCH (09:55)
[2022-09-03] MEDS: POLYETHYLENE GLYCOL (HEALTHYLAX) 3350 17 GM PACKET PO SCH (09:55)
[2022-09-03 10:10] LABS: CALCIUM 8.5 mg/dL (8.5-10.1)
[2022-09-03 10:11] LABS: ALBUMIN 1.7 g/dl (3.4-5.0); BLOOD UREA NITROGEN 10.5 mg/dL (7-18); MAGNESIUM 2.1 mg/dL (1.8-2.4)
[2022-09-03 10:13] LABS: BILIRUBIN,TOTAL 0.3 mg/dL (0.2-1); CREATININE 0.6 mg/dL (0.55-1.3); PHOSPHOROUS 3.4 mg/dL (2.5-4.9); TOT PROT 5.6 g/dl (6.4-8.2)
[2022-09-03 10:16] LABS: ACTIVATED PTT 43.7 SECONDS (25.2-36.5)
[2022-09-03] MEDS: traZODone HCL 50 MG TABLET (FP) PO SCH (22:06)
[2022-09-03] MEDS: MELATONIN 5 MG TABLETS PO SCH (22:06)
[2022-09-03] MEDS: LISINOPRIL 20 MG TABLET PO SCH (22:07)
[2022-09-03] MEDS: MIRTAZAPINE 15 MG TABLET (FP) PO SCH (22:08)
[2022-09-04] MEDS: DOCUSATE SODIUM 100 MG CAPSULE (FP) PO SCH ×3 (06:59→21:05)
[2022-09-04] MEDS ORDERED: WARFARIN NA 3 MG TABLET PO ONE (07:23)
[2022-09-04] MEDS ORDERED: WARFARIN NA 2.5 MG, WARFARIN NA 1 MG PO ONE (07:45)
[2022-09-04 09:14] LABS: BASO % 0.3 % (0-2.0); EOS % 0.4 % (0-4.5); HEMATOCRIT 26.9 % (32.4-45.2); HEMOGLOBIN 8.8 GM/dL (10.7-15.3); MCH 28.4 pg (25.7-33.7); MCHC 32.8 g/dl (32.0-36.0); MEAN CELL VOLUME 86.4 fl (80-96); MEAN PLT VOLUME 7.3 fl (7.5-11.1); MONO % 5.3 % (3.8-10.2); PLATELET COUNT 484 10^3/uL (134-434); RBC 3.11 M/mm3 (3.60-5.2); RDW 15.5 % (11.6-15.6); WHITE BLOOD COUNT 11.7 K/mm3 (4.0-10.0)
[2022-09-04 09:22] LABS: INR 2.75 (0.83-1.09); PROTHROMBIN TIME (PATIENT) 31.9 SEC (9.7-13.0)
[2022-09-04 09:25] LABS: ACTIVATED PTT 39.7 SECONDS (25.2-36.5)
[2022-09-04] MEDS: FUROSEMIDE 40 MG/4 ML INJECTABLE VIAL IVPUSH SCH (09:31)
[2022-09-04] MEDS: morphine SO4 SUSTAINED ACTING 30 MG TABLET.SA PO SCH ×2 (09:31→21:01)
[2022-09-04] MEDS: GABAPENTIN 100 MG CAPSULE PO SCH ×2 (09:31→21:02)
[2022-09-04] MEDS: PANTOPRAZOLE SODIUM 40 MG VIAL IVPUSH SCH (09:31)
[2022-09-04] MEDS: busPIRone HCL 5 MG TABLET PO SCH ×2 (09:31→21:02)
[2022-09-04] MEDS: SILVER SULFADIAZINE 1% TOP CREAM 50 GM JAR TP SCH (09:32)
[2022-09-04] MEDS: POLYETHYLENE GLYCOL (HEALTHYLAX) 3350 17 GM PACKET PO SCH (09:32)
[2022-09-04 09:42] LABS: CALCIUM 8.4 mg/dL (8.5-10.1)
[2022-09-04 09:43] LABS: ALBUMIN 1.8 g/dl (3.4-5.0)
[2022-09-04 09:46] LABS: CREATININE 0.6 mg/dL (0.55-1.3); PHOSPHOROUS 2.8 mg/dL (2.5-4.9)
[2022-09-04 09:47] LABS: BILIRUBIN,TOTAL 0.4 mg/dL (0.2-1); TOT PROT 6.1 g/dl (6.4-8.2)
[2022-09-04] MEDS ORDERED: WARFARIN NA 3 MG TABLET PO SCH (18:00)
[2022-09-04] MEDS ORDERED: WARFARIN NA 2.5 MG, WARFARIN NA 1 MG PO SCH (18:00)
[2022-09-04] MEDS: traZODone HCL 50 MG TABLET (FP) PO SCH (21:01)
[2022-09-04] MEDS: MIRTAZAPINE 15 MG TABLET (FP) PO SCH (21:02)
[2022-09-04] MEDS: MELATONIN 5 MG TABLETS PO SCH (21:03)
[2022-09-04] MEDS: LISINOPRIL 20 MG TABLET PO SCH (21:03)
[2022-09-05] MEDS: DOCUSATE SODIUM 100 MG CAPSULE (FP) PO SCH ×3 (05:45→21:40)
[2022-09-05] MEDS: FUROSEMIDE 40 MG/4 ML INJECTABLE VIAL IVPUSH SCH (08:59)
[2022-09-05] MEDS: PANTOPRAZOLE SODIUM 40 MG VIAL IVPUSH SCH (08:59)
[2022-09-05] MEDS: GABAPENTIN 100 MG CAPSULE PO SCH ×2 (08:59→21:41)
[2022-09-05] MEDS: busPIRone HCL 5 MG TABLET PO SCH ×2 (08:59→23:00)
[2022-09-05] MEDS: morphine SO4 SUSTAINED ACTING 30 MG TABLET.SA PO SCH ×2 (08:59→21:41)
[2022-09-05] MEDS: POLYETHYLENE GLYCOL (HEALTHYLAX) 3350 17 GM PACKET PO SCH (09:00)
[2022-09-05] MEDS: SILVER SULFADIAZINE 1% TOP CREAM 50 GM JAR TP SCH (09:00)
[2022-09-05 11:01] LABS: BASO % 0.6 % (0-2.0); EOS % 0.4 % (0-4.5); HEMATOCRIT 28.1 % (32.4-45.2); HEMOGLOBIN 9.2 GM/dL (10.7-15.3); LYMPH % 13.2 % (8-40); MCH 28.3 pg (25.7-33.7); MCHC 32.9 g/dl (32.0-36.0); MEAN CELL VOLUME 86.2 fl (80-96); MEAN PLT VOLUME 7.4 fl (7.5-11.1); MONO % 5.2 % (3.8-10.2); NEUT % 80.6 % (42.8-82.8); PLATELET COUNT 508 10^3/uL (134-434); RBC 3.26 M/mm3 (3.60-5.2); RDW 15.8 % (11.6-15.6); WHITE BLOOD COUNT 10.2 K/mm3 (4.0-10.0)
[2022-09-05 11:21] LABS: INR 2.74 (0.83-1.09); PROTHROMBIN TIME (PATIENT) 31.8 SEC (9.7-13.0)
[2022-09-05 11:25] LABS: BLOOD UREA NITROGEN 11.8 mg/dL (7-18)
[2022-09-05 11:29] LABS: ALBUMIN 1.9 g/dl (3.4-5.0); MAGNESIUM 2.1 mg/dL (1.8-2.4)
[2022-09-05 11:31] LABS: BILIRUBIN,TOTAL 0.3 mg/dL (0.2-1); PHOSPHOROUS 2.7 mg/dL (2.5-4.9)
[2022-09-05 11:33] LABS: CREATININE 0.7 mg/dL (0.55-1.3); TOT PROT 6.4 g/dl (6.4-8.2)
[2022-09-05 11:40] LABS: CALCIUM 8.4 mg/dL (8.5-10.1)
[2022-09-05] MEDS: WARFARIN NA 3 MG TABLET PO SCH (17:24)
[2022-09-05] MEDS: LISINOPRIL 20 MG TABLET PO SCH (21:40)
[2022-09-05] MEDS: MIRTAZAPINE 15 MG TABLET (FP) PO SCH (21:41)
[2022-09-05] MEDS: traZODone HCL 50 MG TABLET (FP) PO SCH (21:41)
[2022-09-05] MEDS: MELATONIN 5 MG TABLETS PO SCH (21:42)
[2022-09-05] MEDS: ATORVASTATIN CA 40 MG TABLET (FP) PO SCH (23:00)
[2022-09-06] MEDS: DOCUSATE SODIUM 100 MG CAPSULE (FP) PO SCH ×3 (05:49→21:24)
[2022-09-06] MEDS: GABAPENTIN 100 MG CAPSULE PO SCH ×2 (09:27→21:25)
[2022-09-06] MEDS: busPIRone HCL 5 MG TABLET PO SCH ×2 (09:27→21:24)
[2022-09-06] MEDS: POLYETHYLENE GLYCOL (HEALTHYLAX) 3350 17 GM PACKET PO SCH (09:28)
[2022-09-06] MEDS: morphine SO4 SUSTAINED ACTING 30 MG TABLET.SA PO SCH ×2 (09:28→21:24)
[2022-09-06] MEDS: PANTOPRAZOLE SODIUM 40 MG VIAL IVPUSH SCH (09:28)
[2022-09-06] MEDS: SILVER SULFADIAZINE 1% TOP CREAM 50 GM JAR TP SCH (09:29)
[2022-09-06 12:01] LABS: BASO % 0.4 % (0-2.0); EOS % 0.2 % (0-4.5); HEMATOCRIT 28.2 % (32.4-45.2); HEMOGLOBIN 9.1 GM/dL (10.7-15.3); LYMPH % 10.6 % (8-40); MCH 27.5 pg (25.7-33.7); MCHC 32.2 g/dl (32.0-36.0); MEAN CELL VOLUME 85.6 fl (80-96); MEAN PLT VOLUME 7.2 fl (7.5-11.1); MONO % 5.5 % (3.8-10.2); NEUT % 83.3 % (42.8-82.8); PLATELET COUNT 551 10^3/uL (134-434); RDW 15.8 % (11.6-15.6); WHITE BLOOD COUNT 13.3 K/mm3 (4.0-10.0)
[2022-09-06 12:09] LABS: INR 2.75 (0.83-1.09); PROTHROMBIN TIME (PATIENT) 31.9 SEC (9.7-13.0)
[2022-09-06 13:47] LABS: CALCIUM 8.6 mg/dL (8.5-10.1)
[2022-09-06 13:48] LABS: BLOOD UREA NITROGEN 13.6 mg/dL (7-18)
[2022-09-06 13:51] LABS: CREATININE 0.6 mg/dL (0.55-1.3)
[2022-09-06 13:52] LABS: BILIRUBIN,TOTAL 0.3 mg/dL (0.2-1); TOT PROT 6.4 g/dl (6.4-8.2)
[2022-09-06 13:54] LABS: MAGNESIUM 2.3 mg/dL (1.8-2.4)
[2022-09-06 13:58] LABS: PHOSPHOROUS 2.9 mg/dL (2.5-4.9)
[2022-09-06] MEDS: WARFARIN NA 3 MG TABLET PO SCH (17:23)
[2022-09-06] MEDS: MELATONIN 5 MG TABLETS PO SCH (21:23)
[2022-09-06] MEDS: traZODone HCL 50 MG TABLET (FP) PO SCH (21:24)
[2022-09-06] MEDS: LISINOPRIL 20 MG TABLET PO SCH (21:24)
[2022-09-06] MEDS: MIRTAZAPINE 15 MG TABLET (FP) PO SCH (21:25)
[2022-09-06] MEDS: ATORVASTATIN CA 40 MG TABLET (FP) PO SCH (21:25)
[2022-09-07] MEDS: DOCUSATE SODIUM 100 MG CAPSULE (FP) PO SCH ×3 (06:07→22:44)
[2022-09-07] MEDS: POLYETHYLENE GLYCOL (HEALTHYLAX) 3350 17 GM PACKET PO SCH (09:44)
[2022-09-07] MEDS: morphine SO4 SUSTAINED ACTING 30 MG TABLET.SA PO SCH ×2 (09:44→22:43)
[2022-09-07] MEDS: busPIRone HCL 5 MG TABLET PO SCH ×2 (09:44→22:43)
[2022-09-07] MEDS: PANTOPRAZOLE SODIUM 40 MG VIAL IVPUSH SCH (09:44)
[2022-09-07] MEDS: GABAPENTIN 100 MG CAPSULE PO SCH ×2 (09:44→22:44)
[2022-09-07] MEDS: SILVER SULFADIAZINE 1% TOP CREAM 50 GM JAR TP SCH (09:45)
[2022-09-07 11:09] LABS: BASO % 0.2 % (0-2.0); EOS % 0.1 % (0-4.5); HEMATOCRIT 28.4 % (32.4-45.2); HEMOGLOBIN 9.1 GM/dL (10.7-15.3); MCH 27.6 pg (25.7-33.7); MEAN CELL VOLUME 86.1 fl (80-96); MEAN PLT VOLUME 7.2 fl (7.5-11.1); MONO % 5.1 % (3.8-10.2); NEUT % 85.6 % (42.8-82.8); PLATELET COUNT 562 10^3/uL (134-434); RDW 15.9 % (11.6-15.6); WHITE BLOOD COUNT 13.3 K/mm3 (4.0-10.0)
[2022-09-07 11:14] LABS: INR 2.89 (0.83-1.09); PROTHROMBIN TIME (PATIENT) 33.6 SEC (9.7-13.0)
[2022-09-07 12:00] LABS: CALCIUM 8.8 mg/dL (8.5-10.1)
[2022-09-07 12:01] LABS: ALBUMIN 1.9 g/dl (3.4-5.0); BLOOD UREA NITROGEN 12.8 mg/dL (7-18); MAGNESIUM 2.2 mg/dL (1.8-2.4)
[2022-09-07 12:03] LABS: PHOSPHOROUS 2.9 mg/dL (2.5-4.9)
[2022-09-07 12:04] LABS: CREATININE 0.6 mg/dL (0.55-1.3)
[2022-09-07 12:05] LABS: BILIRUBIN,TOTAL 0.3 mg/dL (0.2-1); TOT PROT 6.2 g/dl (6.4-8.2)
[2022-09-07] MEDS: WARFARIN NA 3 MG TABLET PO SCH (17:26)
[2022-09-07] MEDS: traZODone HCL 50 MG TABLET (FP) PO SCH (22:43)
[2022-09-07] MEDS: MELATONIN 5 MG TABLETS PO SCH (22:43)
[2022-09-07] MEDS: ATORVASTATIN CA 40 MG TABLET (FP) PO SCH (22:44)
[2022-09-07] MEDS: LISINOPRIL 20 MG TABLET PO SCH (22:44)
[2022-09-07] MEDS: MIRTAZAPINE 15 MG TABLET (FP) PO SCH (22:44)
[2022-09-08] MEDS: DOCUSATE SODIUM 100 MG CAPSULE (FP) PO SCH ×3 (05:07→21:19)
[2022-09-08 09:15] LABS: BASO % 0.2 % (0-2.0); EOS % 0.4 % (0-4.5); HEMATOCRIT 26.6 % (32.4-45.2); HEMOGLOBIN 8.4 GM/dL (10.7-15.3); LYMPH % 12.9 % (8-40); MCH 27.1 pg (25.7-33.7); MCHC 31.6 g/dl (32.0-36.0); MEAN CELL VOLUME 85.7 fl (80-96); MEAN PLT VOLUME 7.2 fl (7.5-11.1); MONO % 7.5 % (3.8-10.2); PLATELET COUNT 531 10^3/uL (134-434); RBC 3.11 M/mm3 (3.60-5.2); RDW 15.6 % (11.6-15.6); WHITE BLOOD COUNT 12.9 K/mm3 (4.0-10.0)
[2022-09-08 09:31] LABS: CALCIUM 8.4 mg/dL (8.5-10.1)
[2022-09-08 09:32] LABS: ALBUMIN 1.8 g/dl (3.4-5.0)
[2022-09-08 09:34] LABS: BILIRUBIN,TOTAL 0.6 mg/dL (0.2-1)
[2022-09-08 09:35] LABS: CREATININE 0.6 mg/dL (0.55-1.3); PHOSPHOROUS 3.4 mg/dL (2.5-4.9)
[2022-09-08] MEDS: GABAPENTIN 100 MG CAPSULE PO SCH ×2 (10:23→21:19)
[2022-09-08] MEDS: morphine SO4 SUSTAINED ACTING 30 MG TABLET.SA PO SCH ×2 (10:23→21:19)
[2022-09-08] MEDS: POLYETHYLENE GLYCOL (HEALTHYLAX) 3350 17 GM PACKET PO SCH (10:25)
[2022-09-08] MEDS: busPIRone HCL 5 MG TABLET PO SCH ×2 (10:25→21:18)
[2022-09-08] MEDS: PANTOPRAZOLE SODIUM 40 MG VIAL IVPUSH SCH (10:25)
[2022-09-08] MEDS: SILVER SULFADIAZINE 1% TOP CREAM 50 GM JAR TP SCH (10:27)
[2022-09-08 11:29] LABS: INR 2.53 (0.83-1.09); PROTHROMBIN TIME (PATIENT) 29.4 SEC (9.7-13.0)
[2022-09-08] MEDS ORDERED: VANCOMYCIN 1 GM/200 ML PREMIX BAG (RESTRICTED TO ID ONLY) IVPB ONE (11:30)
[2022-09-08] MEDS: PIPERACILLIN/TAZOB 3.375 GM 3.375 GM in DEXTROSE 5%-WATER - 50 ML IVPB SCH ×2 (14:35→17:48)
[2022-09-08] MEDS ORDERED: ACETAMINOPHEN 1000 MG/100 ML BAG IVPB ONE (17:39)
[2022-09-08] MEDS ORDERED: PIPERACILLIN/TAZOBACTAM 3.375 GM VIAL IVPB ONE (17:50)
[2022-09-08] MEDS: WARFARIN NA 3 MG TABLET PO SCH (17:53)
[2022-09-08] MEDS ORDERED: ACETAMINOPHEN 325 MG TABLET (FP) PO PRN (19:11)
[2022-09-08] MEDS ORDERED: LACTATED RINGERS SOLUTION 1,000 ML/1,000 ML INFUS.BAG IV SCH (20:30)
[2022-09-08] MEDS: MIRTAZAPINE 15 MG TABLET (FP) PO SCH (21:17)
[2022-09-08] MEDS: traZODone HCL 50 MG TABLET (FP) PO SCH (21:17)
[2022-09-08] MEDS: LISINOPRIL 20 MG TABLET PO SCH (21:17)
[2022-09-08] MEDS: MELATONIN 5 MG TABLETS PO SCH (21:18)
[2022-09-08] MEDS: ATORVASTATIN CA 40 MG TABLET (FP) PO SCH (21:20)
[2022-09-08] MEDS: VANCOMYCIN/WATER FOR INJ (PEG) 1,000 MG/200 ML BAG IVPB SCH (23:27)
[2022-09-09] MEDS: PIPERACILLIN/TAZOB 3.375 GM 3.375 GM in DEXTROSE 5%-WATER - 50 ML IVPB SCH ×3 (01:56→18:37)
[2022-09-09] MEDS: DOCUSATE SODIUM 100 MG CAPSULE (FP) PO SCH ×3 (05:47→21:59)
[2022-09-09] MEDS ORDERED: SODIUM CHLORIDE 1,000 ML IV SCH (08:00)
[2022-09-09] MEDS: PANTOPRAZOLE SODIUM 40 MG VIAL IVPUSH SCH (09:30)
[2022-09-09] MEDS: busPIRone HCL 5 MG TABLET PO SCH ×2 (09:30→22:02)
[2022-09-09] MEDS: morphine SO4 SUSTAINED ACTING 30 MG TABLET.SA PO SCH ×2 (09:30→21:59)
[2022-09-09] MEDS: GABAPENTIN 100 MG CAPSULE PO SCH ×2 (09:33→22:01)
[2022-09-09] MEDS: POLYETHYLENE GLYCOL (HEALTHYLAX) 3350 17 GM PACKET PO SCH (09:40)
[2022-09-09] MEDS: SILVER SULFADIAZINE 1% TOP CREAM 50 GM JAR TP SCH (09:40)
[2022-09-09] MEDS ORDERED: LACTATED RINGERS SOLUTION 1,000 ML/1,000 ML INFUS.BAG IV SCH (10:00)
[2022-09-09] MEDS ORDERED: LACTATED RINGERS SOLUTION 1000 ML INFUS.BAG IV ONE (10:38)
[2022-09-09 11:56] LABS: BASO % 0.5 % (0-2.0); EOS % 0.7 % (0-4.5); HEMATOCRIT 25.7 % (32.4-45.2); HEMOGLOBIN 8.3 GM/dL (10.7-15.3); LYMPH % 9.1 % (8-40); MCH 27.6 pg (25.7-33.7); MCHC 32.3 g/dl (32.0-36.0); MEAN CELL VOLUME 85.5 fl (80-96); MEAN PLT VOLUME 7.3 fl (7.5-11.1); MONO % 8.3 % (3.8-10.2); NEUT % 81.4 % (42.8-82.8); PLATELET COUNT 471 10^3/uL (134-434); RBC 3.01 M/mm3 (3.60-5.2); WHITE BLOOD COUNT 7.2 K/mm3 (4.0-10.0)
[2022-09-09] MEDS ORDERED: FENTANYL CITRATE/PF 50 MCG/ML VIAL ONE ×7 (11:58→13:45)
[2022-09-09] MEDS ORDERED: DEXAMETHASONE SOD PHOSPHATE 4 MG/1 ML VIAL ONE (11:58)
[2022-09-09] MEDS ORDERED: LIDOCAINE HCL/PF 2% SDV 5ML VIAL ONE (11:58)
[2022-09-09] MEDS ORDERED: ONDANSETRON 4 MG/2 ML VIAL ONE (11:58)
[2022-09-09] MEDS ORDERED: PROPOFOL 20 ML ONE (11:58)
[2022-09-09] MEDS ORDERED: SUCCINYLCHOLINE CHLORIDE 200 MG/10 ML SYRINGE ONE (11:59)
[2022-09-09] MEDS ORDERED: ROCURONIUM BROMIDE 50 MG/5 ML SYRINGE ONE (11:59)
[2022-09-09] MEDS ORDERED: MIDAZOLAM HCL 2 MG/2 ML SINGLE DOSE VIAL ONE (11:59)
[2022-09-09 12:09] LABS: INR 3.09 (0.83-1.09)
[2022-09-09] MEDS ORDERED: VANCOMYCIN 1,000 MG VIAL (RESTRICTED TO ID ONLY) IVPB ONE (12:18)
[2022-09-09] MEDS ORDERED: VANCOMYCIN 1,000 MG VIAL (RESTRICTED TO ID ONLY) ONE (12:18)
[2022-09-09 12:27] LABS: ALBUMIN 1.8 g/dl (3.4-5.0); CALCIUM 8.4 mg/dL (8.5-10.1)
[2022-09-09 12:28] LABS: MAGNESIUM 2.1 mg/dL (1.8-2.4)
[2022-09-09 12:30] LABS: CREATININE 0.7 mg/dL (0.55-1.3); PHOSPHOROUS 3.6 mg/dL (2.5-4.9)
[2022-09-09 12:32] LABS: BILIRUBIN,TOTAL 0.6 mg/dL (0.2-1); TOT PROT 5.8 g/dl (6.4-8.2)
[2022-09-09] MEDS ORDERED: POVIDONE-IODINE OINTMENT 10% - 28.4 GM TUBE ONE (12:57)
[2022-09-09] MEDS ORDERED: ONDANSETRON 4 MG/2 ML VIAL IVPUSH PRN (13:06)
[2022-09-09] MEDS ORDERED: ACETAMINOPHEN 325 MG TABLET (FP) PO PRN (13:06)
[2022-09-09] MEDS ORDERED: BISACODYL 5 MG TABLET.DR (FP) PO PRN (13:06)
[2022-09-09] MEDS: FENTANYL CITRATE/PF 50 MCG/ML VIAL ONE ×2 (13:15→13:20)
[2022-09-09] MEDS ORDERED: ACETAMINOPHEN INJECTION 100 ML IVPB ONE (13:28)
[2022-09-09] MEDS ORDERED: ACETAMINOPHEN 1000 MG/100 ML BAG IVPB ONE (13:43)
[2022-09-09] MEDS ORDERED: HYDROmorphone HCl 2 MG/ML VIAL ONE (13:51)
[2022-09-09] MEDS: HYDROmorphone HCL CARPU-JECT 2 MG/1 ML DISP.SYRIN IVPUSH PRN ×4 (13:51→14:36)
[2022-09-09] MEDS: VANCOMYCIN/WATER FOR INJ (PEG) 1,000 MG/200 ML BAG IVPB SCH ×2 (14:00→22:25)
[2022-09-09] MEDS: LACTATED RINGERS SOLUTION 1,000 ML/1,000 ML INFUS.BAG IV SCH (17:49)
[2022-09-09] MEDS: SODIUM CHLORIDE 1,000 ML IV SCH (17:49)
[2022-09-09] MEDS ORDERED: WARFARIN NA 2.5 MG TABLET PO SCH (18:00)
[2022-09-09] MEDS ORDERED: PIPERACILLIN/TAZOB 3.375 GM 3.375 GM in DEXTROSE 5%-WATER - 50 ML IVPB SCH (18:00)
[2022-09-09] MEDS ORDERED: WARFARIN NA 3 MG TABLET PO SCH (18:00)
[2022-09-09] MEDS: MELATONIN 5 MG TABLETS PO SCH (21:59)
[2022-09-09] MEDS: ATORVASTATIN CA 40 MG TABLET (FP) PO SCH (22:01)
[2022-09-09] MEDS: MIRTAZAPINE 15 MG TABLET (FP) PO SCH (22:01)
[2022-09-09] MEDS: traZODone HCL 50 MG TABLET (FP) PO SCH (22:02)
[2022-09-09] MEDS: LISINOPRIL 20 MG TABLET PO SCH (22:10)
[2022-09-09] MEDS ORDERED: VANCOMYCIN/WATER FOR INJ (PEG) 1,000 MG/200 ML BAG IVPB SCH (23:00)
[2022-09-10] MEDS: PIPERACILLIN/TAZOB 3.375 GM 3.375 GM in DEXTROSE 5%-WATER - 50 ML IVPB SCH ×2 (01:00→09:02)
[2022-09-10] MEDS: LACTATED RINGERS SOLUTION 1,000 ML/1,000 ML INFUS.BAG IV SCH ×2 (01:01→13:04)
[2022-09-10] MEDS: DOCUSATE SODIUM 100 MG CAPSULE (FP) PO SCH ×3 (05:18→21:43)
[2022-09-10] MEDS: morphine SO4 SUSTAINED ACTING 30 MG TABLET.SA PO SCH ×2 (09:01→21:43)
[2022-09-10] MEDS: GABAPENTIN 100 MG CAPSULE PO SCH ×2 (09:01→21:42)
[2022-09-10] MEDS: busPIRone HCL 5 MG TABLET PO SCH ×2 (09:02→21:42)
[2022-09-10] MEDS: POLYETHYLENE GLYCOL (HEALTHYLAX) 3350 17 GM PACKET PO SCH (09:06)
[2022-09-10] MEDS: PANTOPRAZOLE SODIUM 40 MG VIAL IVPUSH SCH (09:06)
[2022-09-10] MEDS: SILVER SULFADIAZINE 1% TOP CREAM 50 GM JAR TP SCH (09:07)
[2022-09-10 09:52] LABS: INR 2.95 (0.83-1.09); PROTHROMBIN TIME (PATIENT) 34.3 SEC (9.7-13.0)
[2022-09-10 09:54] LABS: BASO % 0.3 % (0-2.0); EOS % 0.3 % (0-4.5); HEMATOCRIT 24.3 % (32.4-45.2); LYMPH % 23.6 % (8-40); MCH 27.8 pg (25.7-33.7); MCHC 32.8 g/dl (32.0-36.0); MEAN CELL VOLUME 84.7 fl (80-96); MEAN PLT VOLUME 7.4 fl (7.5-11.1); MONO % 8.5 % (3.8-10.2); NEUT % 67.3 % (42.8-82.8); PLATELET COUNT 567 10^3/uL (134-434); RBC 2.87 M/mm3 (3.60-5.2); RDW 15.8 % (11.6-15.6); WHITE BLOOD COUNT 6.8 K/mm3 (4.0-10.0)
[2022-09-10 10:08] LABS: CALCIUM 8.3 mg/dL (8.5-10.1)
[2022-09-10 10:09] LABS: BLOOD UREA NITROGEN 13.9 mg/dL (7-18); MAGNESIUM 2.2 mg/dL (1.8-2.4)
[2022-09-10 10:11] LABS: ALBUMIN 1.8 g/dl (3.4-5.0)
[2022-09-10 10:13] LABS: CREATININE 0.8 mg/dL (0.55-1.3)
[2022-09-10 10:14] LABS: BILIRUBIN,TOTAL 0.3 mg/dL (0.2-1)
[2022-09-10] MEDS ORDERED: PHYTONADIONE 10 MG/1 ML AMP IVPB ONE (10:45)
[2022-09-10] MEDS: VANCOMYCIN/WATER FOR INJ (PEG) 1,000 MG/200 ML BAG IVPB SCH (11:14)
[2022-09-10] MEDS: CEFAZOLIN SODIUM 2 GM in DEXTROSE 5%-WATER 100 ML IVPB SCH ×2 (13:25→17:55)
[2022-09-10] MEDS: SODIUM CHLORIDE 1,000 ML IV SCH (13:27)
[2022-09-10] MEDS: traZODone HCL 50 MG TABLET (FP) PO SCH (21:42)
[2022-09-10] MEDS: LISINOPRIL 20 MG TABLET PO SCH (21:42)
[2022-09-10] MEDS: MELATONIN 5 MG TABLETS PO SCH (21:42)
[2022-09-10] MEDS: ATORVASTATIN CA 40 MG TABLET (FP) PO SCH (21:43)
[2022-09-10] MEDS: MIRTAZAPINE 15 MG TABLET (FP) PO SCH (21:43)
[2022-09-11] MEDS: CEFAZOLIN SODIUM 2 GM in DEXTROSE 5%-WATER 100 ML IVPB SCH ×3 (01:12→17:15)
[2022-09-11] MEDS: HYDROmorphone HCl 2 MG/ML VIAL IVPUSH PRN ×2 (01:32→08:34)
[2022-09-11] MEDS: DOCUSATE SODIUM 100 MG CAPSULE (FP) PO SCH ×3 (05:24→22:16)
[2022-09-11 08:14] LABS: BASO % 0.4 % (0-2.0); EOS % 0.2 % (0-4.5); HEMATOCRIT 38.3 % (32.4-45.2); LYMPH % 14.3 % (8-40); MCH 28.7 pg (25.7-33.7); MEAN CELL VOLUME 84.5 fl (80-96); MONO % 8.2 % (3.8-10.2); NEUT % 76.9 % (42.8-82.8); PLATELET COUNT 515 10^3/uL (134-434); RBC 4.53 M/mm3 (3.60-5.2); RDW 17.4 % (11.6-15.6); WHITE BLOOD COUNT 9.9 K/mm3 (4.0-10.0)
[2022-09-11 08:15] LABS: CALCIUM 8.5 mg/dL (8.5-10.1)
[2022-09-11 08:16] LABS: BLOOD UREA NITROGEN 11.6 mg/dL (7-18); MAGNESIUM 2.1 mg/dL (1.8-2.4)
[2022-09-11 08:17] LABS: PHOSPHOROUS 3.3 mg/dL (2.5-4.9)
[2022-09-11 08:19] LABS: BILIRUBIN,TOTAL 0.7 mg/dL (0.2-1); CREATININE 0.7 mg/dL (0.55-1.3); INR 1.25 (0.83-1.09); PROTHROMBIN TIME (PATIENT) 14.4 SEC (9.7-13.0); TOT PROT 6.2 g/dl (6.4-8.2)
[2022-09-11] MEDS: SILVER SULFADIAZINE 1% TOP CREAM 50 GM JAR TP SCH (09:15)
[2022-09-11] MEDS: GABAPENTIN 100 MG CAPSULE PO SCH ×2 (09:43→22:15)
[2022-09-11] MEDS: POLYETHYLENE GLYCOL (HEALTHYLAX) 3350 17 GM PACKET PO SCH (09:43)
[2022-09-11] MEDS: morphine SO4 SUSTAINED ACTING 30 MG TABLET.SA PO SCH ×2 (09:43→22:15)
[2022-09-11] MEDS: busPIRone HCL 5 MG TABLET PO SCH ×2 (09:43→22:16)
[2022-09-11] MEDS: PANTOPRAZOLE SODIUM 40 MG VIAL IVPUSH SCH (09:50)
[2022-09-11] MEDS ORDERED: ROPIVACAINE HCL 0.5% 30ML VIAL ONE ×2 (11:26→12:16)
[2022-09-11] MEDS ORDERED: FENTANYL CITRATE/PF 50 MCG/ML VIAL ONE ×7 (11:27→14:59)
[2022-09-11] MEDS ORDERED: MIDAZOLAM HCL 2 MG/2 ML SINGLE DOSE VIAL ONE (11:27)
[2022-09-11] MEDS ORDERED: PROPOFOL 20 ML ONE (12:13)
[2022-09-11] MEDS ORDERED: ceFAZolin SODIUM 1 GM VIAL ONE (12:13)
[2022-09-11] MEDS ORDERED: ONDANSETRON 4 MG/2 ML VIAL ONE (12:13)
[2022-09-11] MEDS ORDERED: DEXAMETHASONE SOD PHOSPHATE 4 MG/1 ML VIAL ONE (12:13)
[2022-09-11] MEDS ORDERED: ROCURONIUM BROMIDE 50 MG/5 ML SYRINGE ONE (12:13)
[2022-09-11] MEDS ORDERED: ceFAZolin SODIUM 1 GM VIAL IVPB ONE (12:35)
[2022-09-11] MEDS: SODIUM CHLORIDE 1,000 ML IV SCH ×2 (13:16→22:16)
[2022-09-11] MEDS: LACTATED RINGERS SOLUTION 1,000 ML/1,000 ML INFUS.BAG IV SCH (13:16)
[2022-09-11] MEDS ORDERED: VANCOMYCIN 1,000 MG VIAL (RESTRICTED TO ID ONLY) ONE (13:40)
[2022-09-11] MEDS ORDERED: VANCOMYCIN 1,000 MG VIAL (RESTRICTED TO ID ONLY) IVPB ONE (13:50)
[2022-09-11] MEDS ORDERED: ONDANSETRON 4 MG/2 ML VIAL IVPUSH PRN ×3 (14:27→15:15)
[2022-09-11] MEDS ORDERED: FENTANYL CITRATE/PF 50 MCG/ML VIAL IVPUSH PRN ×4 (14:27→15:15)
[2022-09-11] MEDS ORDERED: GLYCOPYRROLATE 0.2 MG/1 ML VIAL ONE (14:32)
[2022-09-11] MEDS ORDERED: NEOSTIGMINE METHYLSULFATE 0.5 MG/1 ML - 10 ML MDV ONE (14:33)
[2022-09-11] MEDS ORDERED: HYDROmorphone HCl 2 MG/ML VIAL IVPB PRN (14:45)
[2022-09-11] MEDS ORDERED: HYDROmorphone HCl 2 MG/ML VIAL IVPUSH ONE ×4 (15:01→16:00)
[2022-09-11] MEDS ORDERED: HYDROmorphone HCl 2 MG/ML VIAL ONE ×2 (15:01→15:52)
[2022-09-11] MEDS ORDERED: LACTATED RINGERS SOLUTION 1,000 ML/1,000 ML INFUS.BAG IV SCH (15:15)
[2022-09-11] MEDS ORDERED: BISACODYL 5 MG TABLET.DR (FP) PO PRN (15:15)
[2022-09-11] MEDS: traZODone HCL 50 MG TABLET (FP) PO SCH (22:14)
[2022-09-11] MEDS: ATORVASTATIN CA 40 MG TABLET (FP) PO SCH (22:14)
[2022-09-11] MEDS: MIRTAZAPINE 15 MG TABLET (FP) PO SCH (22:15)
[2022-09-11] MEDS: MELATONIN 5 MG TABLETS PO SCH (22:15)
[2022-09-11] MEDS: LISINOPRIL 20 MG TABLET PO SCH (22:16)
[2022-09-12] MEDS: CEFAZOLIN SODIUM 2 GM in DEXTROSE 5%-WATER 100 ML IVPB SCH ×3 (01:41→17:21)
[2022-09-12] MEDS: ACETAMINOPHEN 325 MG TABLET (FP) PO PRN ×3 (01:44→22:26)
[2022-09-12] MEDS: PIPERACILLIN/TAZOB 3.375 GM 3.375 GM in DEXTROSE 5%-WATER - 50 ML IVPB SCH ×2 (04:24→09:17)
[2022-09-12] MEDS: SODIUM CHLORIDE 1,000 ML IV SCH ×3 (04:26→20:22)
[2022-09-12] MEDS ORDERED: VANCOMYCIN PREMIX 1.5 GM 1,500 MG/300 ML BAG IVPB ONE (04:30)
[2022-09-12 04:58] LABS: PH,URINE 6.5 (5.0-8.0); URINE APPEARANCE CLEAR; URINE BILIRUBIN NEGATIVE (NEGATIVE); URINE COLOR YELLOW; URINE GLUCOSE (UA) NEGATIVE (NEGATIVE); URINE KETONE NEGATIVE (NEGATIVE); URINE LEUK ESTERASE NEGATIVE (NEGATIVE); URINE NITRITE NEGATIVE (NEGATIVE); URINE PROTEIN NEGATIVE (NEGATIVE); URINE UROBILINOGEN 0.2 mg/dL (0.2-1.0)
[2022-09-12] MEDS: DOCUSATE SODIUM 100 MG CAPSULE (FP) PO SCH ×3 (08:10→21:19)
[2022-09-12] MEDS: morphine SULFATE 4 MG/ML VIAL IVPUSH PRN ×4 (08:11→23:42)
[2022-09-12] MEDS: PANTOPRAZOLE SODIUM 40 MG VIAL IVPUSH SCH (09:14)
[2022-09-12] MEDS: busPIRone HCL 5 MG TABLET PO SCH ×2 (09:15→21:20)
[2022-09-12] MEDS: morphine SO4 SUSTAINED ACTING 30 MG TABLET.SA PO SCH ×2 (09:15→21:18)
[2022-09-12] MEDS: GABAPENTIN 100 MG CAPSULE PO SCH ×2 (09:16→21:19)
[2022-09-12] MEDS: SILVER SULFADIAZINE 1% TOP CREAM 50 GM JAR TP SCH (09:17)
[2022-09-12] MEDS: POLYETHYLENE GLYCOL (HEALTHYLAX) 3350 17 GM PACKET PO SCH (09:28)
[2022-09-12 12:21] LABS: BASO % 0.2 % (0-2.0); EOS % 0.1 % (0-4.5); HEMATOCRIT 33.7 % (32.4-45.2); LYMPH % 7.9 % (8-40); MCH 27.7 pg (25.7-33.7); MCHC 32.7 g/dl (32.0-36.0); MEAN CELL VOLUME 84.7 fl (80-96); MEAN PLT VOLUME 7.1 fl (7.5-11.1); NEUT % 82.8 % (42.8-82.8); PLATELET COUNT 465 10^3/uL (134-434); RBC 3.98 M/mm3 (3.60-5.2); RDW 17.1 % (11.6-15.6); WHITE BLOOD COUNT 11.6 K/mm3 (4.0-10.0)
[2022-09-12 12:31] LABS: INR 1.33 (0.83-1.09); PROTHROMBIN TIME (PATIENT) 15.3 SEC (9.7-13.0)
[2022-09-12 12:48] LABS: BLOOD UREA NITROGEN 6.7 mg/dL (7-18); CALCIUM 7.6 mg/dL (8.5-10.1)
[2022-09-12 12:49] LABS: MAGNESIUM 1.8 mg/dL (1.8-2.4)
[2022-09-12 12:51] LABS: BILIRUBIN,TOTAL 0.3 mg/dL (0.2-1); CREATININE 0.7 mg/dL (0.55-1.3); PHOSPHOROUS 1.8 mg/dL (2.5-4.9); TOT PROT 5.1 g/dl (6.4-8.2)
[2022-09-12 13:12] LABS: ALBUMIN 1.5 g/dl (3.4-5.0)
[2022-09-12] MEDS ORDERED: NAPH,MB-DB/K PH,MBDB POWDER PACKET PO ONE ×2 (15:26→17:45)
[2022-09-12] MEDS ORDERED: VANCOMYCIN 1 GM PREMIX - 1 GM/200 ML BAG IVPB SCH (17:00)
[2022-09-12] MEDS: MIRTAZAPINE 15 MG TABLET (FP) PO SCH (21:18)
[2022-09-12] MEDS: traZODone HCL 50 MG TABLET (FP) PO SCH (21:18)
[2022-09-12] MEDS: MELATONIN 5 MG TABLETS PO SCH (21:20)
[2022-09-12] MEDS: LISINOPRIL 20 MG TABLET PO SCH (21:20)
[2022-09-12] MEDS: ATORVASTATIN CA 40 MG TABLET (FP) PO SCH (21:20)
[2022-09-13] MEDS: CEFAZOLIN SODIUM 2 GM in DEXTROSE 5%-WATER 100 ML IVPB SCH ×3 (01:12→18:31)
[2022-09-13] MEDS ORDERED: PIPERACILLIN/TAZOB 3.375 GM 3.375 GM in DEXTROSE 5%-WATER - 50 ML IVPB SCH (02:00)
[2022-09-13] MEDS: morphine SULFATE 4 MG/ML VIAL IVPUSH PRN ×2 (05:57→09:53)
[2022-09-13] MEDS: DOCUSATE SODIUM 100 MG CAPSULE (FP) PO SCH ×3 (05:57→22:01)
[2022-09-13] MEDS: ENOXAPARIN NA (PORCINE) 40 MG/0.4 ML DISP.SYRIN SQ SCH (09:38)
[2022-09-13] MEDS: PANTOPRAZOLE SODIUM 40 MG VIAL IVPUSH SCH (09:38)
[2022-09-13] MEDS: POLYETHYLENE GLYCOL (HEALTHYLAX) 3350 17 GM PACKET PO SCH (09:39)
[2022-09-13] MEDS: busPIRone HCL 5 MG TABLET PO SCH ×2 (09:42→22:01)
[2022-09-13] MEDS: morphine SO4 SUSTAINED ACTING 30 MG TABLET.SA PO SCH ×2 (09:42→22:03)
[2022-09-13] MEDS: SODIUM CHLORIDE 1,000 ML IV SCH ×2 (09:45→15:32)
[2022-09-13] MEDS: SILVER SULFADIAZINE 1% TOP CREAM 50 GM JAR TP SCH (09:58)
[2022-09-13] MEDS: GABAPENTIN 100 MG CAPSULE PO SCH ×2 (10:10→22:04)
[2022-09-13 10:42] LABS: BASO % 0.3 % (0-2.0); EOS % 0.4 % (0-4.5); HEMATOCRIT 31.4 % (32.4-45.2); HEMOGLOBIN 10.3 GM/dL (10.7-15.3); LYMPH % 13.1 % (8-40); MCH 28.1 pg (25.7-33.7); MCHC 32.7 g/dl (32.0-36.0); MEAN CELL VOLUME 85.8 fl (80-96); MEAN PLT VOLUME 7.2 fl (7.5-11.1); MONO % 7.7 % (3.8-10.2); NEUT % 78.5 % (42.8-82.8); PLATELET COUNT 444 10^3/uL (134-434); RBC 3.66 M/mm3 (3.60-5.2); RDW 17.3 % (11.6-15.6); WHITE BLOOD COUNT 10.4 K/mm3 (4.0-10.0)
[2022-09-13 10:50] LABS: INR 1.38 (0.83-1.09); PROTHROMBIN TIME (PATIENT) 15.9 SEC (9.7-13.0)
[2022-09-13 11:05] LABS: MAGNESIUM 1.9 mg/dL (1.8-2.4)
[2022-09-13 11:09] LABS: PHOSPHOROUS 1.6 mg/dL (2.5-4.9)
[2022-09-13] MEDS ORDERED: POTASSIUM PHOSPHATE 40 MM in SODIUM CHLORIDE 500 ML IVPB ONE (12:45)
[2022-09-13] MEDS: HYDROmorphone HCl 2 MG/ML VIAL IVPUSH PRN ×3 (12:59→23:09)
[2022-09-13] MEDS: ACETAMINOPHEN 325 MG TABLET (FP) PO PRN ×2 (13:01→23:09)
[2022-09-13] MEDS ORDERED: VANCOMYCIN 1 GM PREMIX - 1 GM/200 ML BAG IVPB SCH (17:00)
[2022-09-13] MEDS: ATORVASTATIN CA 40 MG TABLET (FP) PO SCH (22:02)
[2022-09-13] MEDS: traZODone HCL 50 MG TABLET (FP) PO SCH (22:02)
[2022-09-13] MEDS: MELATONIN 5 MG TABLETS PO SCH (22:03)
[2022-09-13] MEDS: LISINOPRIL 20 MG TABLET PO SCH (22:04)
[2022-09-13] MEDS: MIRTAZAPINE 15 MG TABLET (FP) PO SCH (22:04)
[2022-09-14] MEDS: CEFAZOLIN SODIUM 2 GM in DEXTROSE 5%-WATER 100 ML IVPB SCH ×3 (03:20→17:13)
[2022-09-14] MEDS: DOCUSATE SODIUM 100 MG CAPSULE (FP) PO SCH ×3 (05:53→21:38)
[2022-09-14] MEDS: HYDROmorphone HCl 2 MG/ML VIAL IVPUSH PRN ×2 (08:01→14:32)
[2022-09-14] MEDS: busPIRone HCL 5 MG TABLET PO SCH ×2 (09:14→21:39)
[2022-09-14] MEDS: GABAPENTIN 100 MG CAPSULE PO SCH ×2 (09:14→21:36)
[2022-09-14] MEDS: PANTOPRAZOLE SODIUM 40 MG VIAL IVPUSH SCH (09:14)
[2022-09-14] MEDS: ENOXAPARIN NA (PORCINE) 40 MG/0.4 ML DISP.SYRIN SQ SCH (09:14)
[2022-09-14] MEDS: morphine SO4 SUSTAINED ACTING 30 MG TABLET.SA PO SCH ×2 (09:14→21:38)
[2022-09-14] MEDS: POLYETHYLENE GLYCOL (HEALTHYLAX) 3350 17 GM PACKET PO SCH (09:50)
[2022-09-14] MEDS: SILVER SULFADIAZINE 1% TOP CREAM 50 GM JAR TP SCH (10:12)
[2022-09-14] MEDS: SODIUM CHLORIDE 1,000 ML IV SCH ×2 (10:20→15:15)
[2022-09-14 10:34] LABS: BASO % 0.6 % (0-2.0); EOS % 0.7 % (0-4.5); HEMATOCRIT 31.5 % (32.4-45.2); HEMOGLOBIN 10.4 GM/dL (10.7-15.3); LYMPH % 13.4 % (8-40); MCH 28.3 pg (25.7-33.7); MCHC 33.2 g/dl (32.0-36.0); MEAN CELL VOLUME 85.3 fl (80-96); MEAN PLT VOLUME 7.3 fl (7.5-11.1); MONO % 7.6 % (3.8-10.2); NEUT % 77.7 % (42.8-82.8); PLATELET COUNT 481 10^3/uL (134-434); RBC 3.69 M/mm3 (3.60-5.2); RDW 16.7 % (11.6-15.6); WHITE BLOOD COUNT 9.9 K/mm3 (4.0-10.0)
[2022-09-14 10:55] LABS: MAGNESIUM 1.9 mg/dL (1.8-2.4)
[2022-09-14 10:59] LABS: PHOSPHOROUS 2.2 mg/dL (2.5-4.9)
[2022-09-14 11:07] LABS: INR 1.24 (0.83-1.09); PROTHROMBIN TIME (PATIENT) 14.3 SEC (9.7-13.0)
[2022-09-14] MEDS: morphine SULFATE 4 MG/ML VIAL IVPUSH PRN ×2 (13:38→18:12)
[2022-09-14] MEDS ORDERED: ACETAMINOPHEN 1000 MG/100 ML BAG IVPB PRN (14:11)
[2022-09-14] MEDS ORDERED: NAPH,MB-DB/K PH,MBDB POWDER PACKET PO ONE (14:45)
[2022-09-14 16:19] LABS: CALCIUM 7.8 mg/dL (8.5-10.1)
[2022-09-14 16:20] LABS: ALBUMIN 1.4 g/dl (3.4-5.0); BLOOD UREA NITROGEN 6.2 mg/dL (7-18)
[2022-09-14 16:23] LABS: CREATININE 0.5 mg/dL (0.55-1.3)
[2022-09-14 16:25] LABS: BILIRUBIN,TOTAL 0.1 mg/dL (0.2-1)
[2022-09-14] MEDS: traZODone HCL 50 MG TABLET (FP) PO SCH (21:35)
[2022-09-14] MEDS: ATORVASTATIN CA 40 MG TABLET (FP) PO SCH (21:36)
[2022-09-14] MEDS: LISINOPRIL 20 MG TABLET PO SCH (21:36)
[2022-09-14] MEDS: ACETAMINOPHEN 500 MG TABLET (FP) PO PRN (21:37)
[2022-09-14] MEDS: MIRTAZAPINE 15 MG TABLET (FP) PO SCH (21:38)
[2022-09-14] MEDS: MELATONIN 5 MG TABLETS PO SCH (21:39)
[2022-09-15] MEDS ORDERED: CEFAZOLIN SODIUM 2 GM VIAL ONE (00:50)
[2022-09-15] MEDS: HYDROmorphone HCl 2 MG/ML VIAL IVPUSH PRN ×2 (01:06→16:17)
[2022-09-15] MEDS: CEFAZOLIN SODIUM 2 GM in DEXTROSE 5%-WATER 100 ML IVPB SCH ×3 (02:28→18:22)
[2022-09-15] MEDS: morphine SULFATE 4 MG/ML VIAL IVPUSH PRN (04:55)
[2022-09-15] MEDS: DOCUSATE SODIUM 100 MG CAPSULE (FP) PO SCH ×3 (06:57→21:20)
[2022-09-15] MEDS: PANTOPRAZOLE SODIUM 40 MG VIAL IVPUSH SCH (09:16)
[2022-09-15] MEDS: morphine SO4 SUSTAINED ACTING 30 MG TABLET.SA PO SCH (09:16)
[2022-09-15] MEDS: GABAPENTIN 100 MG CAPSULE PO SCH ×3 (09:16→21:20)
[2022-09-15] MEDS: busPIRone HCL 5 MG TABLET PO SCH ×2 (09:16→21:20)
[2022-09-15] MEDS: ENOXAPARIN NA (PORCINE) 40 MG/0.4 ML DISP.SYRIN SQ SCH (09:27)
[2022-09-15] MEDS: POLYETHYLENE GLYCOL (HEALTHYLAX) 3350 17 GM PACKET PO SCH (09:30)
[2022-09-15 09:54] LABS: BASO % 0.5 % (0-2.0); EOS % 1.1 % (0-4.5); HEMATOCRIT 30.7 % (32.4-45.2); HEMOGLOBIN 10.4 GM/dL (10.7-15.3); MCH 28.9 pg (25.7-33.7); MEAN CELL VOLUME 84.9 fl (80-96); MEAN PLT VOLUME 7.1 fl (7.5-11.1); MONO % 6.8 % (3.8-10.2); NEUT % 73.6 % (42.8-82.8); PLATELET COUNT 480 10^3/uL (134-434); RBC 3.62 M/mm3 (3.60-5.2); RDW 17.3 % (11.6-15.6); WHITE BLOOD COUNT 7.6 K/mm3 (4.0-10.0)
[2022-09-15 09:56] LABS: INR 1.17 (0.83-1.09); PROTHROMBIN TIME (PATIENT) 13.5 SEC (9.7-13.0)
[2022-09-15 10:15] LABS: ALBUMIN 1.4 g/dl (3.4-5.0); BLOOD UREA NITROGEN 6.3 mg/dL (7-18); MAGNESIUM 1.8 mg/dL (1.8-2.4)
[2022-09-15 10:18] LABS: CREATININE 0.5 mg/dL (0.55-1.3); PHOSPHOROUS 2.7 mg/dL (2.5-4.9)
[2022-09-15 10:19] LABS: BILIRUBIN,TOTAL 0.3 mg/dL (0.2-1); TOT PROT 5.1 g/dl (6.4-8.2)
[2022-09-15] MEDS ORDERED: NALOXONE HCL 0.4 MG/ML VIAL IVPUSH PRN ×2 (10:47→10:49)
[2022-09-15] MEDS ORDERED: POLYETHYLENE GLYCOL (HEALTHYLAX) 3350 17 GM PACKET PO PRN (10:49)
[2022-09-15] MEDS: SILVER SULFADIAZINE 1% TOP CREAM 50 GM JAR TP SCH (11:18)
[2022-09-15] MEDS: oxyCODONE HCL 5 MG TABLET PO SCH ×2 (11:34→18:19)
[2022-09-15] MEDS ORDERED: HYDROmorphone HCl 2 MG/ML VIAL IVPUSH ONE (12:49)
[2022-09-15] MEDS: SODIUM CHLORIDE 1,000 ML IV SCH (15:25)
[2022-09-15] MEDS: MELATONIN 5 MG TABLETS PO SCH (21:19)
[2022-09-15] MEDS: MIRTAZAPINE 15 MG TABLET (FP) PO SCH (21:19)
[2022-09-15] MEDS: traZODone HCL 50 MG TABLET (FP) PO SCH (21:20)
[2022-09-15] MEDS: LISINOPRIL 20 MG TABLET PO SCH (21:20)
[2022-09-15] MEDS: ATORVASTATIN CA 40 MG TABLET (FP) PO SCH (21:20)
[2022-09-15] MEDS ORDERED: DOCUSATE SODIUM 100 MG CAPSULE (FP) PO SCH (22:00)
[2022-09-15] MEDS: ACETAMINOPHEN 500 MG TABLET (FP) PO PRN (22:23)
[2022-09-16] MEDS: oxyCODONE HCL 5 MG TABLET PO SCH ×4 (01:08→19:01)
[2022-09-16] MEDS: CEFAZOLIN SODIUM 2 GM in DEXTROSE 5%-WATER 100 ML IVPB SCH ×3 (01:09→17:29)
[2022-09-16] MEDS: DOCUSATE SODIUM 100 MG CAPSULE (FP) PO SCH ×3 (05:59→21:55)
[2022-09-16] MEDS: GABAPENTIN 100 MG CAPSULE PO SCH ×3 (05:59→21:56)
[2022-09-16] MEDS: PANTOPRAZOLE SODIUM 40 MG VIAL IVPUSH SCH (09:23)
[2022-09-16] MEDS: ENOXAPARIN NA (PORCINE) 40 MG/0.4 ML DISP.SYRIN SQ SCH (09:23)
[2022-09-16] MEDS: POLYETHYLENE GLYCOL (HEALTHYLAX) 3350 17 GM PACKET PO SCH (09:23)
[2022-09-16] MEDS: busPIRone HCL 5 MG TABLET PO SCH ×2 (09:24→21:55)
[2022-09-16 11:41] LABS: BASO % 0.3 % (0-2.0); EOS % 0.3 % (0-4.5); HEMATOCRIT 31.2 % (32.4-45.2); HEMOGLOBIN 10.6 GM/dL (10.7-15.3); LYMPH % 13.2 % (8-40); MCH 28.5 pg (25.7-33.7); MCHC 33.9 g/dl (32.0-36.0); MEAN PLT VOLUME 7.1 fl (7.5-11.1); MONO % 7.1 % (3.8-10.2); NEUT % 79.1 % (42.8-82.8); PLATELET COUNT 485 10^3/uL (134-434); RBC 3.71 M/mm3 (3.60-5.2); RDW 17.3 % (11.6-15.6); WHITE BLOOD COUNT 8.5 K/mm3 (4.0-10.0)
[2022-09-16 11:47] LABS: INR 1.2 (0.83-1.09); PROTHROMBIN TIME (PATIENT) 13.8 SEC (9.7-13.0)
[2022-09-16] MEDS: SILVER SULFADIAZINE 1% TOP CREAM 50 GM JAR TP SCH (12:06)
[2022-09-16 12:13] LABS: PHOSPHOROUS 2.1 mg/dL (2.5-4.9)
[2022-09-16 12:14] LABS: BILIRUBIN,TOTAL 0.2 mg/dL (0.2-1); TOT PROT 5.3 g/dl (6.4-8.2)
[2022-09-16 12:15] LABS: ALBUMIN 1.4 g/dl (3.4-5.0)
[2022-09-16 12:16] LABS: BLOOD UREA NITROGEN 6.9 mg/dL (7-18); CALCIUM 7.6 mg/dL (8.5-10.1); MAGNESIUM 1.6 mg/dL (1.8-2.4)
[2022-09-16 12:18] LABS: CREATININE 0.5 mg/dL (0.55-1.3)
[2022-09-16] MEDS: HYDROmorphone HCl 2 MG/ML VIAL IVPUSH PRN ×2 (13:24→17:28)
[2022-09-16] MEDS ORDERED: MAGNESIUM SULF 50% (8.12 MEQ/2 ML-1 GM VIAL) IVPB ONE (13:30)
[2022-09-16] MEDS ORDERED: POTASSIUM PHOSPHATE 20 MM in DEXTROSE 5%-WATER - 250 ML IVPB ONE (14:00)
[2022-09-16] MEDS: SODIUM CHLORIDE 1,000 ML IV SCH (17:31)
[2022-09-16] MEDS: MIRTAZAPINE 15 MG TABLET (FP) PO SCH (21:54)
[2022-09-16] MEDS: LISINOPRIL 20 MG TABLET PO SCH (21:54)
[2022-09-16] MEDS: traZODone HCL 50 MG TABLET (FP) PO SCH (21:55)
[2022-09-16] MEDS: MELATONIN 5 MG TABLETS PO SCH (21:55)
[2022-09-16] MEDS: ATORVASTATIN CA 40 MG TABLET (FP) PO SCH (21:56)
[2022-09-17] MEDS: oxyCODONE HCL 5 MG TABLET PO SCH ×5 (00:01→23:48)
[2022-09-17] MEDS: CEFAZOLIN SODIUM 2 GM in DEXTROSE 5%-WATER 100 ML IVPB SCH ×3 (01:56→17:09)
[2022-09-17] MEDS: HYDROmorphone HCl 2 MG/ML VIAL IVPUSH PRN (02:08)
[2022-09-17] MEDS: DOCUSATE SODIUM 100 MG CAPSULE (FP) PO SCH ×3 (06:04→21:13)
[2022-09-17] MEDS: GABAPENTIN 100 MG CAPSULE PO SCH ×3 (06:05→21:13)
[2022-09-17] MEDS: POLYETHYLENE GLYCOL (HEALTHYLAX) 3350 17 GM PACKET PO SCH ×2 (10:24→10:35)
[2022-09-17] MEDS: busPIRone HCL 5 MG TABLET PO SCH ×2 (10:24→21:14)
[2022-09-17] MEDS: ACETAMINOPHEN 500 MG TABLET (FP) PO SCH ×3 (10:24→23:49)
[2022-09-17] MEDS: ENOXAPARIN NA (PORCINE) 40 MG/0.4 ML DISP.SYRIN SQ SCH (10:24)
[2022-09-17] MEDS: PANTOPRAZOLE SODIUM 40 MG VIAL IVPUSH SCH (10:24)
[2022-09-17] MEDS: SILVER SULFADIAZINE 1% TOP CREAM 50 GM JAR TP SCH (10:25)
[2022-09-17 11:05] LABS: INR 1.13 (0.83-1.09)
[2022-09-17 11:33] LABS: HEMOGLOBIN 10.5 GM/dL (10.7-15.3); MCH 27.9 pg (25.7-33.7); MCHC 32.8 g/dl (32.0-36.0); MEAN CELL VOLUME 85.2 fl (80-96); MEAN PLT VOLUME 7.2 fl (7.5-11.1); PLATELET COUNT 472 10^3/uL (134-434); RBC 3.75 M/mm3 (3.60-5.2); RDW 17.1 % (11.6-15.6); WHITE BLOOD COUNT 7.2 K/mm3 (4.0-10.0)
[2022-09-17 11:39] LABS: ALBUMIN 1.4 g/dl (3.4-5.0); BLOOD UREA NITROGEN 7.4 mg/dL (7-18)
[2022-09-17 11:41] LABS: CREATININE 0.5 mg/dL (0.55-1.3); PHOSPHOROUS 2.9 mg/dL (2.5-4.9)
[2022-09-17 11:43] LABS: BILIRUBIN,TOTAL 0.2 mg/dL (0.2-1); TOT PROT 5.1 g/dl (6.4-8.2)
[2022-09-17] MEDS: oxyCODONE HCL 5 MG TABLET PO PRN (20:13)
[2022-09-17] MEDS: LISINOPRIL 20 MG TABLET PO SCH (21:13)
[2022-09-17] MEDS: MIRTAZAPINE 15 MG TABLET (FP) PO SCH (21:13)
[2022-09-17] MEDS: traZODone HCL 50 MG TABLET (FP) PO SCH (21:13)
[2022-09-17] MEDS: ATORVASTATIN CA 40 MG TABLET (FP) PO SCH (21:13)
[2022-09-17] MEDS: MELATONIN 5 MG TABLETS PO SCH (21:14)
[2022-09-18] MEDS: CEFAZOLIN SODIUM 2 GM in DEXTROSE 5%-WATER 100 ML IVPB SCH ×3 (01:53→18:43)
[2022-09-18] MEDS: HYDROmorphone HCl 2 MG/ML VIAL IVPUSH PRN ×2 (02:46→09:55)
[2022-09-18] MEDS: oxyCODONE HCL 5 MG TABLET PO SCH ×3 (05:59→18:40)
[2022-09-18] MEDS: DOCUSATE SODIUM 100 MG CAPSULE (FP) PO SCH ×3 (05:59→21:51)
[2022-09-18] MEDS: GABAPENTIN 100 MG CAPSULE PO SCH ×3 (05:59→21:55)
[2022-09-18] MEDS: ACETAMINOPHEN 500 MG TABLET (FP) PO SCH ×2 (09:03→18:41)
[2022-09-18] MEDS: POLYETHYLENE GLYCOL (HEALTHYLAX) 3350 17 GM PACKET PO SCH (09:42)
[2022-09-18] MEDS: busPIRone HCL 5 MG TABLET PO SCH ×2 (09:42→21:55)
[2022-09-18] MEDS: ENOXAPARIN NA (PORCINE) 40 MG/0.4 ML DISP.SYRIN SQ SCH (09:42)
[2022-09-18] MEDS: PANTOPRAZOLE SODIUM 40 MG VIAL IVPUSH SCH (09:42)
[2022-09-18] MEDS: SILVER SULFADIAZINE 1% TOP CREAM 50 GM JAR TP SCH (09:43)
[2022-09-18 10:54] LABS: HEMATOCRIT 32.9 % (32.4-45.2); HEMOGLOBIN 10.8 GM/dL (10.7-15.3); MCH 27.8 pg (25.7-33.7); MCHC 32.8 g/dl (32.0-36.0); MEAN CELL VOLUME 84.8 fl (80-96); MEAN PLT VOLUME 7.2 fl (7.5-11.1); PLATELET COUNT 487 10^3/uL (134-434); RBC 3.88 M/mm3 (3.60-5.2); RDW 17.5 % (11.6-15.6); WHITE BLOOD COUNT 6.8 K/mm3 (4.0-10.0)
[2022-09-18 10:57] LABS: INR 1.15 (0.83-1.09); PROTHROMBIN TIME (PATIENT) 13.3 SEC (9.7-13.0)
[2022-09-18 12:09] LABS: ALBUMIN 1.7 g/dl (3.4-5.0); BLOOD UREA NITROGEN 6.5 mg/dL (7-18); CALCIUM 8.5 mg/dL (8.5-10.1); MAGNESIUM 1.7 mg/dL (1.8-2.4)
[2022-09-18 12:12] LABS: CREATININE 0.6 mg/dL (0.55-1.3); PHOSPHOROUS 2.7 mg/dL (2.5-4.9)
[2022-09-18 12:13] LABS: TOT PROT 5.6 g/dl (6.4-8.2)
[2022-09-18 12:14] LABS: BILIRUBIN,TOTAL 0.2 mg/dL (0.2-1)
[2022-09-18] MEDS ORDERED: MAGNESIUM SULF 50% (8.12 MEQ/2 ML-1 GM VIAL) IVPB ONE ×2 (13:12→15:30)
[2022-09-18] MEDS ORDERED: MAGNESIUM SULF 50% (8.12 MEQ/2 ML-1 GM VIAL) ONE (15:18)
[2022-09-18] MEDS: LISINOPRIL 20 MG TABLET PO SCH (21:51)
[2022-09-18] MEDS: traZODone HCL 50 MG TABLET (FP) PO SCH (21:51)
[2022-09-18] MEDS: MELATONIN 5 MG TABLETS PO SCH (21:52)
[2022-09-18] MEDS: ATORVASTATIN CA 40 MG TABLET (FP) PO SCH (21:55)
[2022-09-18] MEDS: MIRTAZAPINE 15 MG TABLET (FP) PO SCH (21:55)
[2022-09-19] MEDS: ACETAMINOPHEN 500 MG TABLET (FP) PO SCH ×3 (01:04→17:13)
[2022-09-19] MEDS: CEFAZOLIN SODIUM 2 GM in DEXTROSE 5%-WATER 100 ML IVPB SCH ×3 (01:04→17:13)
[2022-09-19] MEDS: oxyCODONE HCL 5 MG TABLET PO SCH ×3 (01:06→11:46)
[2022-09-19] MEDS: GABAPENTIN 100 MG CAPSULE PO SCH ×3 (06:00→21:11)
[2022-09-19] MEDS: DOCUSATE SODIUM 100 MG CAPSULE (FP) PO SCH ×3 (06:00→21:12)
[2022-09-19] MEDS: POLYETHYLENE GLYCOL (HEALTHYLAX) 3350 17 GM PACKET PO SCH (09:45)
[2022-09-19] MEDS: PANTOPRAZOLE SODIUM 40 MG VIAL IVPUSH SCH (09:45)
[2022-09-19] MEDS: ENOXAPARIN NA (PORCINE) 40 MG/0.4 ML DISP.SYRIN SQ SCH (09:45)
[2022-09-19] MEDS: oxyCODONE HCL 5 MG TABLET PO PRN ×2 (09:46→15:00)
[2022-09-19] MEDS: busPIRone HCL 5 MG TABLET PO SCH ×2 (09:59→21:11)
[2022-09-19 11:48] LABS: HEMOGLOBIN 10.8 GM/dL (10.7-15.3); MCH 27.8 pg (25.7-33.7); MCHC 32.8 g/dl (32.0-36.0); MEAN CELL VOLUME 84.9 fl (80-96); MEAN PLT VOLUME 7.2 fl (7.5-11.1); PLATELET COUNT 525 10^3/uL (134-434); RBC 3.88 M/mm3 (3.60-5.2); RDW 17.1 % (11.6-15.6); WHITE BLOOD COUNT 7.8 K/mm3 (4.0-10.0)
[2022-09-19 11:57] LABS: INR 1.09 (0.83-1.09); PROTHROMBIN TIME (PATIENT) 12.6 SEC (9.7-13.0)
[2022-09-19] MEDS: HYDROmorphone HCl 2 MG/ML VIAL IVPUSH PRN (12:18)
[2022-09-19] MEDS ORDERED: HYDROmorphone HCl 2 MG/ML VIAL IVPUSH PRN ×2 (12:25→13:14)
[2022-09-19] MEDS ORDERED: oxyCODONE HCL 5 MG TABLET PO SCH (12:25)
[2022-09-19 12:34] LABS: ALBUMIN 1.8 g/dl (3.4-5.0); CALCIUM 8.3 mg/dL (8.5-10.1)
[2022-09-19 12:35] LABS: BLOOD UREA NITROGEN 7.6 mg/dL (7-18); MAGNESIUM 1.8 mg/dL (1.8-2.4)
[2022-09-19 12:38] LABS: BILIRUBIN,TOTAL 0.2 mg/dL (0.2-1); CREATININE 0.6 mg/dL (0.55-1.3); PHOSPHOROUS 3.1 mg/dL (2.5-4.9); TOT PROT 5.7 g/dl (6.4-8.2)
[2022-09-19] MEDS ORDERED: oxyCODONE HCL 5 MG TABLET PO PRN ×2 (13:35→13:36)
[2022-09-19] MEDS: HYDROmorphone HCl 2 MG/ML VIAL IVPB PRN (17:49)
[2022-09-19] MEDS: ATORVASTATIN CA 40 MG TABLET (FP) PO SCH (21:11)
[2022-09-19] MEDS: MELATONIN 5 MG TABLETS PO SCH (21:11)
[2022-09-19] MEDS: LISINOPRIL 20 MG TABLET PO SCH (21:11)
[2022-09-19] MEDS: traZODone HCL 50 MG TABLET (FP) PO SCH (21:12)
[2022-09-19] MEDS: MIRTAZAPINE 15 MG TABLET (FP) PO SCH (21:12)
[2022-09-20] MEDS: ACETAMINOPHEN 500 MG TABLET (FP) PO SCH ×3 (00:37→16:54)
[2022-09-20] MEDS: oxyCODONE HCL 5 MG TABLET PO PRN ×4 (02:45→23:57)
[2022-09-20] MEDS: CEFAZOLIN SODIUM 2 GM in DEXTROSE 5%-WATER 100 ML IVPB SCH ×2 (02:46→09:16)
[2022-09-20] MEDS: GABAPENTIN 100 MG CAPSULE PO SCH ×3 (05:25→21:50)
[2022-09-20] MEDS: DOCUSATE SODIUM 100 MG CAPSULE (FP) PO SCH ×3 (05:25→21:50)
[2022-09-20] MEDS: PANTOPRAZOLE SODIUM 40 MG VIAL IVPUSH SCH (09:16)
[2022-09-20] MEDS: POLYETHYLENE GLYCOL (HEALTHYLAX) 3350 17 GM PACKET PO SCH (09:16)
[2022-09-20] MEDS: AMINO ACIDS/PROTEIN HYDROLYS 30 ML LIQUID.PKT PO SCH (09:17)
[2022-09-20] MEDS: busPIRone HCL 5 MG TABLET PO SCH ×2 (09:17→21:51)
[2022-09-20] MEDS: ENOXAPARIN NA (PORCINE) 40 MG/0.4 ML DISP.SYRIN SQ SCH (09:17)
[2022-09-20 11:04] LABS: HEMATOCRIT 34.4 % (32.4-45.2); HEMOGLOBIN 11.2 GM/dL (10.7-15.3); MCH 27.8 pg (25.7-33.7); MCHC 32.5 g/dl (32.0-36.0); MEAN CELL VOLUME 85.4 fl (80-96); MEAN PLT VOLUME 7.5 fl (7.5-11.1); PLATELET COUNT 500 10^3/uL (134-434); RBC 4.03 M/mm3 (3.60-5.2); RDW 17.6 % (11.6-15.6); WHITE BLOOD COUNT 6.7 K/mm3 (4.0-10.0)
[2022-09-20 11:05] LABS: INR 1.08 (0.83-1.09); PROTHROMBIN TIME (PATIENT) 12.4 SEC (9.7-13.0)
[2022-09-20 11:39] LABS: BLOOD UREA NITROGEN 9.2 mg/dL (7-18); MAGNESIUM 1.9 mg/dL (1.8-2.4)
[2022-09-20 11:41] LABS: PHOSPHOROUS 3.5 mg/dL (2.5-4.9)
[2022-09-20 11:42] LABS: CREATININE 0.5 mg/dL (0.55-1.3)
[2022-09-20 11:43] LABS: BILIRUBIN,TOTAL 0.5 mg/dL (0.2-1); TOT PROT 5.9 g/dl (6.4-8.2)
[2022-09-20] MEDS: HYDROmorphone HCl 2 MG/ML VIAL IVPB PRN (11:56)
[2022-09-20] MEDS: PIPERACILLIN/TAZOB 3.375 GM 3.375 GM in DEXTROSE 5%-WATER - 50 ML IVPB SCH ×2 (16:52→21:50)
[2022-09-20] MEDS: VANCOMYCIN/WATER FOR INJ (PEG) 1,000 MG/200 ML BAG IVPB SCH (17:44)
[2022-09-20] MEDS: traZODone HCL 50 MG TABLET (FP) PO SCH (21:48)
[2022-09-20] MEDS: MIRTAZAPINE 15 MG TABLET (FP) PO SCH (21:50)
[2022-09-20] MEDS: MELATONIN 5 MG TABLETS PO SCH (21:50)
[2022-09-20] MEDS: ATORVASTATIN CA 40 MG TABLET (FP) PO SCH (21:50)
[2022-09-20] MEDS: LISINOPRIL 20 MG TABLET PO SCH (21:50)
[2022-09-21] MEDS: ACETAMINOPHEN 500 MG TABLET (FP) PO SCH ×4 (01:33→16:10)
[2022-09-21] MEDS: PIPERACILLIN/TAZOB 3.375 GM 3.375 GM in DEXTROSE 5%-WATER - 50 ML IVPB SCH ×4 (02:37→20:46)
[2022-09-21] MEDS: VANCOMYCIN/WATER FOR INJ (PEG) 1,000 MG/200 ML BAG IVPB SCH (03:33)
[2022-09-21] MEDS: DOCUSATE SODIUM 100 MG CAPSULE (FP) PO SCH ×3 (05:30→21:45)
[2022-09-21] MEDS: GABAPENTIN 100 MG CAPSULE PO SCH ×3 (05:30→21:46)
[2022-09-21] MEDS: AMINO ACIDS/PROTEIN HYDROLYS 30 ML LIQUID.PKT PO SCH (08:41)
[2022-09-21] MEDS: PANTOPRAZOLE SODIUM 40 MG VIAL IVPUSH SCH (09:27)
[2022-09-21] MEDS: HYDROmorphone HCl 2 MG/ML VIAL IVPB PRN ×3 (09:28→22:57)
[2022-09-21] MEDS: busPIRone HCL 5 MG TABLET PO SCH ×2 (09:42→21:45)
[2022-09-21] MEDS: POLYETHYLENE GLYCOL (HEALTHYLAX) 3350 17 GM PACKET PO SCH (09:42)
[2022-09-21] MEDS ORDERED: ZINC SULFATE 220 MG CAPSULE (FP) PO SCH (10:00)
[2022-09-21] MEDS ORDERED: MULTIVITAMINS (DAILY MVI) TABLET (FP) PO SCH (10:00)
[2022-09-21] MEDS ORDERED: ASCORBIC ACID 250 MG TABLET (FP) PO SCH (10:00)
[2022-09-21 11:39] LABS: HEMATOCRIT 35.4 % (32.4-45.2); HEMOGLOBIN 11.1 GM/dL (10.7-15.3); MCHC 31.4 g/dl (32.0-36.0); MEAN CELL VOLUME 86.2 fl (80-96); MEAN PLT VOLUME 7.6 fl (7.5-11.1); PLATELET COUNT 516 10^3/uL (134-434); RBC 4.11 M/mm3 (3.60-5.2); RDW 17.4 % (11.6-15.6); WHITE BLOOD COUNT 7.7 K/mm3 (4.0-10.0)
[2022-09-21 11:41] LABS: INR 1.03 (0.83-1.09); PROTHROMBIN TIME (PATIENT) 11.9 SEC (9.7-13.0)
[2022-09-21 12:06] LABS: ALBUMIN 2.2 g/dl (3.4-5.0)
[2022-09-21 12:07] LABS: BLOOD UREA NITROGEN 9.6 mg/dL (7-18); MAGNESIUM 1.9 mg/dL (1.8-2.4)
[2022-09-21 12:08] LABS: CREATININE 0.5 mg/dL (0.55-1.3); PHOSPHOROUS 3.6 mg/dL (2.5-4.9)
[2022-09-21 12:10] LABS: BILIRUBIN,TOTAL 0.5 mg/dL (0.2-1); TOT PROT 5.9 g/dl (6.4-8.2)
[2022-09-21] MEDS ORDERED: PIPERACILLIN/TAZOB 3.375 GM 3.375 GM in DEXTROSE 5%-WATER - 50 ML IVPB SCH (15:00)
[2022-09-21] MEDS ORDERED: VANCOMYCIN/WATER FOR INJ (PEG) 1,000 MG/200 ML BAG IVPB SCH (15:00)
[2022-09-21] MEDS ORDERED: LIDOCAINE HCL 1%, 10 MG/ML (20ML VIAL) ONE (16:04)
[2022-09-21] MEDS ORDERED: PIPERACILLIN/TAZOBACTAM 3.375 GM VIAL IVPB ONE ×2 (16:18→17:35)
[2022-09-21] MEDS ORDERED: PROMETHAZINE HCL 25 MG/1 ML VIAL IVPUSH PRN ×2 (16:19→18:18)
[2022-09-21] MEDS ORDERED: ONDANSETRON 4 MG/2 ML VIAL IVPUSH PRN ×3 (16:19→18:18)
[2022-09-21] MEDS ORDERED: LACTATED RINGERS SOLUTION 1,000 ML IV SCH (16:30)
[2022-09-21] MEDS ORDERED: PROPOFOL 40 ML ONE (17:23)
[2022-09-21] MEDS ORDERED: ONDANSETRON 4 MG/2 ML VIAL ONE (17:23)
[2022-09-21] MEDS ORDERED: FENTANYL CITRATE/PF 50 MCG/ML VIAL ONE ×6 (17:23→18:33)
[2022-09-21] MEDS ORDERED: MIDAZOLAM HCL 2 MG/2 ML SINGLE DOSE VIAL ONE (17:23)
[2022-09-21] MEDS ORDERED: LIDOCAINE HCL 2% 100 MG/5 ML DISP.SYRIN ONE (17:43)
[2022-09-21] MEDS ORDERED: VANCOMYCIN 1 GM in D5W (PRE-DOCKED) 1,000 MG/250 ML IVPB ONE (17:52)
[2022-09-21] MEDS ORDERED: LIDOCAINE HCL 1%, 10 MG/ML (20ML VIAL) NR ONE (18:06)
[2022-09-21] MEDS ORDERED: BISACODYL 5 MG TABLET.DR (FP) PO PRN (18:18)
[2022-09-21] MEDS ORDERED: NALOXONE HCL 0.4 MG/ML VIAL IVPUSH PRN (18:18)
[2022-09-21] MEDS ORDERED: HYDROmorphone HCl 2 MG/ML VIAL ONE (18:45)
[2022-09-21] MEDS: LACTATED RINGERS SOLUTION 1,000 ML IV SCH ×2 (19:30→20:48)
[2022-09-21] MEDS: oxyCODONE HCL 5 MG TABLET PO PRN (20:56)
[2022-09-21] MEDS: MELATONIN 5 MG TABLETS PO SCH (21:45)
[2022-09-21] MEDS: ATORVASTATIN CA 40 MG TABLET (FP) PO SCH (21:45)
[2022-09-21] MEDS: MIRTAZAPINE 15 MG TABLET (FP) PO SCH (21:46)
[2022-09-21] MEDS: traZODone HCL 50 MG TABLET (FP) PO SCH (21:46)
[2022-09-21] MEDS ORDERED: LISINOPRIL 20 MG TABLET PO SCH (22:00)
[2022-09-22] MEDS: ACETAMINOPHEN 500 MG TABLET (FP) PO SCH ×3 (00:24→17:12)
[2022-09-22] MEDS: PIPERACILLIN/TAZOB 3.375 GM 3.375 GM in DEXTROSE 5%-WATER - 50 ML IVPB SCH ×4 (00:24→19:14)
[2022-09-22] MEDS: VANCOMYCIN/WATER FOR INJ (PEG) 1,000 MG/200 ML BAG IVPB SCH ×2 (02:24→14:41)
[2022-09-22] MEDS: GABAPENTIN 100 MG CAPSULE PO SCH ×3 (05:47→21:45)
[2022-09-22] MEDS: DOCUSATE SODIUM 100 MG CAPSULE (FP) PO SCH ×3 (05:47→21:45)
[2022-09-22] MEDS: HYDROmorphone HCl 2 MG/ML VIAL IVPB PRN ×2 (05:48→11:21)
[2022-09-22] MEDS: LACTATED RINGERS SOLUTION 1,000 ML IV SCH ×2 (05:49→19:15)
[2022-09-22] MEDS: AMINO ACIDS/PROTEIN HYDROLYS 30 ML LIQUID.PKT PO SCH (09:31)
[2022-09-22] MEDS: POLYETHYLENE GLYCOL (HEALTHYLAX) 3350 17 GM PACKET PO SCH (09:31)
[2022-09-22] MEDS: ZINC SULFATE 220 MG CAPSULE (FP) PO SCH (09:32)
[2022-09-22] MEDS: MULTIVITAMINS (DAILY MVI) TABLET (FP) PO SCH (09:32)
[2022-09-22] MEDS: ENOXAPARIN NA (PORCINE) 40 MG/0.4 ML DISP.SYRIN SQ SCH (09:32)
[2022-09-22] MEDS: ASCORBIC ACID 250 MG TABLET (FP) PO SCH (09:33)
[2022-09-22] MEDS: busPIRone HCL 5 MG TABLET PO SCH ×2 (09:33→21:46)
[2022-09-22] MEDS: PANTOPRAZOLE SODIUM 40 MG VIAL IVPUSH SCH (09:33)
[2022-09-22] MEDS: amLODIPine BESYLATE 10 MG TABLET (FP) PO SCH (11:11)
[2022-09-22] MEDS: LISINOPRIL 20 MG TABLET PO SCH (11:11)
[2022-09-22 11:23] LABS: HEMATOCRIT 35.6 % (32.4-45.2); HEMOGLOBIN 11.2 GM/dL (10.7-15.3); MCH 27.5 pg (25.7-33.7); MCHC 31.6 g/dl (32.0-36.0); MEAN CELL VOLUME 87.1 fl (80-96); MEAN PLT VOLUME 7.4 fl (7.5-11.1); PLATELET COUNT 467 10^3/uL (134-434); RBC 4.09 M/mm3 (3.60-5.2); RDW 18.1 % (11.6-15.6); WHITE BLOOD COUNT 6.3 K/mm3 (4.0-10.0)
[2022-09-22 11:34] LABS: INR 1.1 (0.83-1.09); PROTHROMBIN TIME (PATIENT) 12.7 SEC (9.7-13.0)
[2022-09-22 11:55] LABS: CALCIUM 8.4 mg/dL (8.5-10.1)
[2022-09-22 11:56] LABS: ALBUMIN 2.1 g/dl (3.4-5.0); BLOOD UREA NITROGEN 9.9 mg/dL (7-18); MAGNESIUM 1.6 mg/dL (1.8-2.4)
[2022-09-22 11:59] LABS: CREATININE 0.6 mg/dL (0.55-1.3); PHOSPHOROUS 3.2 mg/dL (2.5-4.9)
[2022-09-22 12:00] LABS: BILIRUBIN,TOTAL 0.3 mg/dL (0.2-1); TOT PROT 5.7 g/dl (6.4-8.2)
[2022-09-22] MEDS: oxyCODONE HCL 5 MG TABLET PO PRN ×2 (14:40→19:28)
[2022-09-22] MEDS ORDERED: MAGNESIUM 2GM/50ML STERILE WATER IVPB IVPB ONE (16:22)
[2022-09-22] MEDS: MIRTAZAPINE 15 MG TABLET (FP) PO SCH (21:45)
[2022-09-22] MEDS: ATORVASTATIN CA 40 MG TABLET (FP) PO SCH (21:45)
[2022-09-22] MEDS: traZODone HCL 50 MG TABLET (FP) PO SCH (21:49)
[2022-09-22] MEDS: MELATONIN 5 MG TABLETS PO SCH (22:30)
[2022-09-23] MEDS: PIPERACILLIN/TAZOB 3.375 GM 3.375 GM in DEXTROSE 5%-WATER - 50 ML IVPB SCH ×4 (00:37→19:03)
[2022-09-23] MEDS: ACETAMINOPHEN 500 MG TABLET (FP) PO SCH ×3 (00:37→16:49)
[2022-09-23] MEDS: VANCOMYCIN/WATER FOR INJ (PEG) 1,000 MG/200 ML BAG IVPB SCH ×3 (02:14→16:48)
[2022-09-23] MEDS: oxyCODONE HCL 5 MG TABLET PO PRN ×2 (03:36→10:34)
[2022-09-23] MEDS: GABAPENTIN 100 MG CAPSULE PO SCH ×3 (05:30→22:06)
[2022-09-23] MEDS: DOCUSATE SODIUM 100 MG CAPSULE (FP) PO SCH ×3 (05:30→22:07)
[2022-09-23] MEDS: AMINO ACIDS/PROTEIN HYDROLYS 30 ML LIQUID.PKT PO SCH (08:53)
[2022-09-23] MEDS: POLYETHYLENE GLYCOL (HEALTHYLAX) 3350 17 GM PACKET PO SCH (09:42)
[2022-09-23] MEDS: PANTOPRAZOLE SODIUM 40 MG VIAL IVPUSH SCH ×2 (09:42→11:48)
[2022-09-23] MEDS: ENOXAPARIN NA (PORCINE) 40 MG/0.4 ML DISP.SYRIN SQ SCH (09:45)
[2022-09-23] MEDS: MULTIVITAMINS (DAILY MVI) TABLET (FP) PO SCH (09:46)
[2022-09-23] MEDS: ASCORBIC ACID 250 MG TABLET (FP) PO SCH (09:46)
[2022-09-23] MEDS: ZINC SULFATE 220 MG CAPSULE (FP) PO SCH (09:46)
[2022-09-23] MEDS: LISINOPRIL 20 MG TABLET PO SCH (09:46)
[2022-09-23] MEDS: amLODIPine BESYLATE 10 MG TABLET (FP) PO SCH (09:46)
[2022-09-23] MEDS: busPIRone HCL 5 MG TABLET PO SCH ×2 (09:46→22:06)
[2022-09-23 10:35] LABS: HEMATOCRIT 31.5 % (32.4-45.2); HEMOGLOBIN 10.5 GM/dL (10.7-15.3); INR 1.1 (0.83-1.09); MCH 28.7 pg (25.7-33.7); MCHC 33.4 g/dl (32.0-36.0); MEAN PLT VOLUME 7.1 fl (7.5-11.1); PLATELET COUNT 439 10^3/uL (134-434); PROTHROMBIN TIME (PATIENT) 12.7 SEC (9.7-13.0); RBC 3.67 M/mm3 (3.60-5.2); RDW 18.1 % (11.6-15.6); WHITE BLOOD COUNT 7.2 K/mm3 (4.0-10.0)
[2022-09-23 11:47] LABS: ALBUMIN 2.2 g/dl (3.4-5.0); CALCIUM 8.4 mg/dL (8.5-10.1); MAGNESIUM 1.8 mg/dL (1.8-2.4)
[2022-09-23 11:48] LABS: BILIRUBIN,TOTAL 0.4 mg/dL (0.2-1); BLOOD UREA NITROGEN 7.7 mg/dL (7-18); CREATININE 0.6 mg/dL (0.55-1.3)
[2022-09-23 11:50] LABS: TOT PROT 5.9 g/dl (6.4-8.2)
[2022-09-23 11:51] LABS: PHOSPHOROUS 2.7 mg/dL (2.5-4.9)
[2022-09-23] MEDS: ATORVASTATIN CA 40 MG TABLET (FP) PO SCH (22:06)
[2022-09-23] MEDS: MELATONIN 5 MG TABLETS PO SCH (22:06)
[2022-09-23] MEDS: traZODone HCL 50 MG TABLET (FP) PO SCH (22:06)
[2022-09-23] MEDS: MIRTAZAPINE 15 MG TABLET (FP) PO SCH (22:07)
[2022-09-24] MEDS: PIPERACILLIN/TAZOB 3.375 GM 3.375 GM in DEXTROSE 5%-WATER - 50 ML IVPB SCH ×3 (00:35→12:35)
[2022-09-24] MEDS: ACETAMINOPHEN 500 MG TABLET (FP) PO SCH ×3 (00:35→16:30)
[2022-09-24] MEDS: oxyCODONE HCL 5 MG TABLET PO PRN ×4 (01:47→16:30)
[2022-09-24] MEDS: VANCOMYCIN/WATER FOR INJ (PEG) 1,000 MG/200 ML BAG IVPB SCH (02:12)
[2022-09-24] MEDS: DOCUSATE SODIUM 100 MG CAPSULE (FP) PO SCH ×3 (05:46→21:35)
[2022-09-24] MEDS: GABAPENTIN 100 MG CAPSULE PO SCH ×3 (05:46→21:34)
[2022-09-24] MEDS: AMINO ACIDS/PROTEIN HYDROLYS 30 ML LIQUID.PKT PO SCH (08:58)
[2022-09-24] MEDS: POLYETHYLENE GLYCOL (HEALTHYLAX) 3350 17 GM PACKET PO SCH (08:59)
[2022-09-24] MEDS: amLODIPine BESYLATE 10 MG TABLET (FP) PO SCH (08:59)
[2022-09-24] MEDS: ASCORBIC ACID 250 MG TABLET (FP) PO SCH (08:59)
[2022-09-24] MEDS: LISINOPRIL 20 MG TABLET PO SCH (08:59)
[2022-09-24] MEDS: busPIRone HCL 5 MG TABLET PO SCH ×2 (08:59→21:35)
[2022-09-24] MEDS: ENOXAPARIN NA (PORCINE) 40 MG/0.4 ML DISP.SYRIN SQ SCH (08:59)
[2022-09-24] MEDS: ZINC SULFATE 220 MG CAPSULE (FP) PO SCH (09:00)
[2022-09-24] MEDS: PANTOPRAZOLE SODIUM 40 MG VIAL IVPUSH SCH (09:00)
[2022-09-24] MEDS: MULTIVITAMINS (DAILY MVI) TABLET (FP) PO SCH (09:00)
[2022-09-24 10:23] LABS: INR 1.15 (0.83-1.09); PROTHROMBIN TIME (PATIENT) 13.2 SEC (9.7-13.0)
[2022-09-24 10:34] LABS: HEMATOCRIT 34.6 % (32.4-45.2); HEMOGLOBIN 11.1 GM/dL (10.7-15.3); MCHC 32.1 g/dl (32.0-36.0); MEAN CELL VOLUME 87.2 fl (80-96); MEAN PLT VOLUME 7.4 fl (7.5-11.1); PLATELET COUNT 481 10^3/uL (134-434); RBC 3.96 M/mm3 (3.60-5.2); RDW 18.3 % (11.6-15.6); WHITE BLOOD COUNT 6.2 K/mm3 (4.0-10.0)
[2022-09-24 11:26] LABS: ALBUMIN 2.4 g/dl (3.4-5.0); BLOOD UREA NITROGEN 9.2 mg/dL (7-18); CALCIUM 9.2 mg/dL (8.5-10.1); MAGNESIUM 1.8 mg/dL (1.8-2.4)
[2022-09-24 11:29] LABS: CREATININE 0.7 mg/dL (0.55-1.3); PHOSPHOROUS 3.2 mg/dL (2.5-4.9)
[2022-09-24 11:31] LABS: BILIRUBIN,TOTAL 0.4 mg/dL (0.2-1); TOT PROT 6.2 g/dl (6.4-8.2)
[2022-09-24] MEDS: CEFAZOLIN SODIUM 2 GM in DEXTROSE 5%-WATER 100 ML IVPB SCH (17:17)
[2022-09-24] MEDS: ATORVASTATIN CA 40 MG TABLET (FP) PO SCH (21:34)
[2022-09-24] MEDS: MIRTAZAPINE 15 MG TABLET (FP) PO SCH (21:35)
[2022-09-24] MEDS: MELATONIN 5 MG TABLETS PO SCH (21:35)
[2022-09-24] MEDS: traZODone HCL 50 MG TABLET (FP) PO SCH (21:35)
[2022-09-25] MEDS: ACETAMINOPHEN 500 MG TABLET (FP) PO SCH ×3 (01:03→17:08)
[2022-09-25] MEDS: CEFAZOLIN SODIUM 2 GM in DEXTROSE 5%-WATER 100 ML IVPB SCH ×3 (01:04→17:10)
[2022-09-25] MEDS: oxyCODONE HCL 5 MG TABLET PO PRN ×2 (03:50→22:29)
[2022-09-25] MEDS: DOCUSATE SODIUM 100 MG CAPSULE (FP) PO SCH ×3 (06:13→22:29)
[2022-09-25] MEDS: GABAPENTIN 100 MG CAPSULE PO SCH ×3 (06:14→22:29)
[2022-09-25] MEDS: AMINO ACIDS/PROTEIN HYDROLYS 30 ML LIQUID.PKT PO SCH (08:48)
[2022-09-25 09:15] LABS: HEMATOCRIT 34.9 % (32.4-45.2); HEMOGLOBIN 11.2 GM/dL (10.7-15.3); MCH 27.7 pg (25.7-33.7); MCHC 32.1 g/dl (32.0-36.0); MEAN CELL VOLUME 86.2 fl (80-96); MEAN PLT VOLUME 7.3 fl (7.5-11.1); PLATELET COUNT 486 10^3/uL (134-434); RBC 4.05 M/mm3 (3.60-5.2); RDW 18.5 % (11.6-15.6)
[2022-09-25 09:16] LABS: INR 1.1 (0.83-1.09); PROTHROMBIN TIME (PATIENT) 12.7 SEC (9.7-13.0)
[2022-09-25 10:14] LABS: ALBUMIN 2.4 g/dl (3.4-5.0); BLOOD UREA NITROGEN 9.3 mg/dL (7-18); CALCIUM 9.3 mg/dL (8.5-10.1); MAGNESIUM 1.9 mg/dL (1.8-2.4)
[2022-09-25 10:17] LABS: CREATININE 0.5 mg/dL (0.55-1.3); PHOSPHOROUS 3.8 mg/dL (2.5-4.9)
[2022-09-25 10:18] LABS: TOT PROT 6.1 g/dl (6.4-8.2)
[2022-09-25 10:19] LABS: BILIRUBIN,TOTAL 0.4 mg/dL (0.2-1)
[2022-09-25] MEDS: busPIRone HCL 5 MG TABLET PO SCH ×2 (10:45→22:28)
[2022-09-25] MEDS: amLODIPine BESYLATE 10 MG TABLET (FP) PO SCH (10:46)
[2022-09-25] MEDS: ZINC SULFATE 220 MG CAPSULE (FP) PO SCH (10:46)
[2022-09-25] MEDS: LISINOPRIL 20 MG TABLET PO SCH (10:46)
[2022-09-25] MEDS: POLYETHYLENE GLYCOL (HEALTHYLAX) 3350 17 GM PACKET PO SCH (10:46)
[2022-09-25] MEDS: ASCORBIC ACID 250 MG TABLET (FP) PO SCH (10:47)
[2022-09-25] MEDS: MULTIVITAMINS (DAILY MVI) TABLET (FP) PO SCH (10:47)
[2022-09-25] MEDS: PANTOPRAZOLE SODIUM 40 MG VIAL IVPUSH SCH (10:53)
[2022-09-25] MEDS: ENOXAPARIN NA (PORCINE) 40 MG/0.4 ML DISP.SYRIN SQ SCH (10:54)
[2022-09-25] MEDS: MELATONIN 5 MG TABLETS PO SCH (22:28)
[2022-09-25] MEDS: traZODone HCL 50 MG TABLET (FP) PO SCH (22:29)
[2022-09-25] MEDS: ATORVASTATIN CA 40 MG TABLET (FP) PO SCH (22:29)
[2022-09-25] MEDS: MIRTAZAPINE 15 MG TABLET (FP) PO SCH (22:29)
[2022-09-26] MEDS: ACETAMINOPHEN 500 MG TABLET (FP) PO SCH ×3 (01:33→17:36)
[2022-09-26] MEDS: CEFAZOLIN SODIUM 2 GM in DEXTROSE 5%-WATER 100 ML IVPB SCH ×3 (01:36→17:37)
[2022-09-26] MEDS: oxyCODONE HCL 5 MG TABLET PO PRN ×2 (04:11→10:33)
[2022-09-26] MEDS: DOCUSATE SODIUM 100 MG CAPSULE (FP) PO SCH ×3 (06:41→21:57)
[2022-09-26] MEDS: GABAPENTIN 100 MG CAPSULE PO SCH ×3 (06:41→21:56)
[2022-09-26] MEDS: AMINO ACIDS/PROTEIN HYDROLYS 30 ML LIQUID.PKT PO SCH (08:41)
[2022-09-26 09:45] LABS: HEMATOCRIT 36.9 % (32.4-45.2); HEMOGLOBIN 11.7 GM/dL (10.7-15.3); MCH 27.3 pg (25.7-33.7); MCHC 31.6 g/dl (32.0-36.0); MEAN CELL VOLUME 86.4 fl (80-96); MEAN PLT VOLUME 7.3 fl (7.5-11.1); PLATELET COUNT 510 10^3/uL (134-434); RBC 4.28 M/mm3 (3.60-5.2); RDW 18.5 % (11.6-15.6); WHITE BLOOD COUNT 5.5 K/mm3 (4.0-10.0)
[2022-09-26 09:55] LABS: INR 1.07 (0.83-1.09); PROTHROMBIN TIME (PATIENT) 12.3 SEC (9.7-13.0)
[2022-09-26] MEDS: ZINC SULFATE 220 MG CAPSULE (FP) PO SCH (10:34)
[2022-09-26] MEDS: amLODIPine BESYLATE 10 MG TABLET (FP) PO SCH (10:34)
[2022-09-26] MEDS: LISINOPRIL 20 MG TABLET PO SCH (10:34)
[2022-09-26] MEDS: ASCORBIC ACID 250 MG TABLET (FP) PO SCH (10:34)
[2022-09-26] MEDS: MULTIVITAMINS (DAILY MVI) TABLET (FP) PO SCH (10:34)
[2022-09-26] MEDS: busPIRone HCL 5 MG TABLET PO SCH ×2 (10:34→21:57)
[2022-09-26] MEDS: ENOXAPARIN NA (PORCINE) 40 MG/0.4 ML DISP.SYRIN SQ SCH (10:34)
[2022-09-26] MEDS: PANTOPRAZOLE SODIUM 40 MG VIAL IVPUSH SCH (10:34)
[2022-09-26] MEDS: POLYETHYLENE GLYCOL (HEALTHYLAX) 3350 17 GM PACKET PO SCH (10:35)
[2022-09-26 10:39] LABS: ALBUMIN 2.6 g/dl (3.4-5.0); CALCIUM 9.4 mg/dL (8.5-10.1)
[2022-09-26 10:40] LABS: BLOOD UREA NITROGEN 10.8 mg/dL (7-18); MAGNESIUM 1.8 mg/dL (1.8-2.4)
[2022-09-26 10:42] LABS: CREATININE 0.5 mg/dL (0.55-1.3)
[2022-09-26 10:43] LABS: PHOSPHOROUS 3.2 mg/dL (2.5-4.9)
[2022-09-26 10:44] LABS: BILIRUBIN,TOTAL 0.2 mg/dL (0.2-1); TOT PROT 6.4 g/dl (6.4-8.2)
[2022-09-26] MEDS: MIRTAZAPINE 15 MG TABLET (FP) PO SCH (21:56)
[2022-09-26] MEDS: traZODone HCL 50 MG TABLET (FP) PO SCH (21:57)
[2022-09-26] MEDS: ATORVASTATIN CA 40 MG TABLET (FP) PO SCH (21:57)
[2022-09-26] MEDS: MELATONIN 5 MG TABLETS PO SCH (21:57)
[2022-09-27] MEDS: ACETAMINOPHEN 500 MG TABLET (FP) PO SCH ×3 (00:26→17:06)
[2022-09-27] MEDS: CEFAZOLIN SODIUM 2 GM in DEXTROSE 5%-WATER 100 ML IVPB SCH ×3 (02:25→17:07)
[2022-09-27] MEDS: GABAPENTIN 100 MG CAPSULE PO SCH ×3 (06:27→21:25)
[2022-09-27] MEDS: oxyCODONE HCL 5 MG TABLET PO PRN (06:28)
[2022-09-27] MEDS: DOCUSATE SODIUM 100 MG CAPSULE (FP) PO SCH ×3 (06:54→21:26)
[2022-09-27 08:52] LABS: HEMATOCRIT 37.5 % (32.4-45.2); HEMOGLOBIN 12.2 GM/dL (10.7-15.3); MCH 28.2 pg (25.7-33.7); MCHC 32.6 g/dl (32.0-36.0); MEAN CELL VOLUME 86.5 fl (80-96); MEAN PLT VOLUME 7.1 fl (7.5-11.1); PLATELET COUNT 512 10^3/uL (134-434); RBC 4.33 M/mm3 (3.60-5.2); RDW 18.5 % (11.6-15.6)
[2022-09-27 09:16] LABS: ALBUMIN 2.7 g/dl (3.4-5.0); BLOOD UREA NITROGEN 10.2 mg/dL (7-18); CALCIUM 9.6 mg/dL (8.5-10.1); MAGNESIUM 1.8 mg/dL (1.8-2.4)
[2022-09-27 09:19] LABS: CREATININE 0.5 mg/dL (0.55-1.3); PHOSPHOROUS 3.8 mg/dL (2.5-4.9)
[2022-09-27 09:21] LABS: BILIRUBIN,TOTAL 0.3 mg/dL (0.2-1); TOT PROT 6.7 g/dl (6.4-8.2)
[2022-09-27] MEDS: ZINC SULFATE 220 MG CAPSULE (FP) PO SCH (09:32)
[2022-09-27] MEDS: ASCORBIC ACID 250 MG TABLET (FP) PO SCH (09:32)
[2022-09-27] MEDS: AMINO ACIDS/PROTEIN HYDROLYS 30 ML LIQUID.PKT PO SCH (09:32)
[2022-09-27] MEDS: POLYETHYLENE GLYCOL (HEALTHYLAX) 3350 17 GM PACKET PO SCH (09:32)
[2022-09-27] MEDS: amLODIPine BESYLATE 10 MG TABLET (FP) PO SCH (09:32)
[2022-09-27] MEDS: PANTOPRAZOLE SODIUM 40 MG VIAL IVPUSH SCH (09:32)
[2022-09-27] MEDS: busPIRone HCL 5 MG TABLET PO SCH ×2 (09:32→21:26)
[2022-09-27] MEDS: MULTIVITAMINS (DAILY MVI) TABLET (FP) PO SCH (09:32)
[2022-09-27] MEDS: LISINOPRIL 20 MG TABLET PO SCH (09:32)
[2022-09-27] MEDS: ENOXAPARIN NA (PORCINE) 40 MG/0.4 ML DISP.SYRIN SQ SCH (09:33)
[2022-09-27] MEDS: MIRTAZAPINE 15 MG TABLET (FP) PO SCH (21:25)
[2022-09-27] MEDS: traZODone HCL 50 MG TABLET (FP) PO SCH (21:25)
[2022-09-27] MEDS: ATORVASTATIN CA 40 MG TABLET (FP) PO SCH (21:26)
[2022-09-27] MEDS: MELATONIN 5 MG TABLETS PO SCH (21:26)
[2022-09-28] MEDS: CEFAZOLIN SODIUM 2 GM in DEXTROSE 5%-WATER 100 ML IVPB SCH ×3 (01:30→18:46)
[2022-09-28] MEDS: ACETAMINOPHEN 500 MG TABLET (FP) PO SCH ×3 (01:31→16:38)
[2022-09-28] MEDS: DOCUSATE SODIUM 100 MG CAPSULE (FP) PO SCH ×3 (06:03→14:06)
[2022-09-28] MEDS: GABAPENTIN 100 MG CAPSULE PO SCH ×3 (06:03→21:19)
[2022-09-28] MEDS: AMINO ACIDS/PROTEIN HYDROLYS 30 ML LIQUID.PKT PO SCH ×2 (08:52→10:29)
[2022-09-28] MEDS: PANTOPRAZOLE SODIUM 40 MG VIAL IVPUSH SCH (10:28)
[2022-09-28] MEDS: ZINC SULFATE 220 MG CAPSULE (FP) PO SCH (10:29)
[2022-09-28] MEDS: MULTIVITAMINS (DAILY MVI) TABLET (FP) PO SCH (10:29)
[2022-09-28] MEDS: amLODIPine BESYLATE 10 MG TABLET (FP) PO SCH (10:29)
[2022-09-28] MEDS: busPIRone HCL 5 MG TABLET PO SCH ×2 (10:29→21:18)
[2022-09-28] MEDS: LISINOPRIL 20 MG TABLET PO SCH (10:29)
[2022-09-28] MEDS: POLYETHYLENE GLYCOL (HEALTHYLAX) 3350 17 GM PACKET PO SCH ×2 (10:29→11:00)
[2022-09-28] MEDS: ASCORBIC ACID 250 MG TABLET (FP) PO SCH (10:29)
[2022-09-28] MEDS: ENOXAPARIN NA (PORCINE) 40 MG/0.4 ML DISP.SYRIN SQ SCH (10:29)
[2022-09-28 10:40] LABS: HEMATOCRIT 37.1 % (32.4-45.2); HEMOGLOBIN 11.9 GM/dL (10.7-15.3); MCH 27.8 pg (25.7-33.7); MEAN CELL VOLUME 86.8 fl (80-96); MEAN PLT VOLUME 7.4 fl (7.5-11.1); PLATELET COUNT 473 10^3/uL (134-434); RBC 4.27 M/mm3 (3.60-5.2); RDW 19.2 % (11.6-15.6)
[2022-09-28 10:56] LABS: CALCIUM 9.3 mg/dL (8.5-10.1)
[2022-09-28 10:57] LABS: ALBUMIN 2.6 g/dl (3.4-5.0); BLOOD UREA NITROGEN 11.5 mg/dL (7-18); MAGNESIUM 1.7 mg/dL (1.8-2.4)
[2022-09-28 11:00] LABS: CREATININE 0.6 mg/dL (0.55-1.3)
[2022-09-28 11:01] LABS: BILIRUBIN,TOTAL 0.3 mg/dL (0.2-1); TOT PROT 6.4 g/dl (6.4-8.2)
[2022-09-28] MEDS: oxyCODONE HCL 5 MG TABLET PO PRN ×2 (11:53→20:52)
[2022-09-28] MEDS ORDERED: MAGNESIUM SULF 50% (8.12 MEQ/2 ML-1 GM VIAL) IVPB ONE (15:27)
[2022-09-28] MEDS: ATORVASTATIN CA 40 MG TABLET (FP) PO SCH (21:18)
[2022-09-28] MEDS: MIRTAZAPINE 15 MG TABLET (FP) PO SCH (21:18)
[2022-09-28] MEDS: MELATONIN 5 MG TABLETS PO SCH (21:18)
[2022-09-28] MEDS: traZODone HCL 50 MG TABLET (FP) PO SCH (21:19)
[2022-09-29] MEDS: ACETAMINOPHEN 500 MG TABLET (FP) PO SCH ×3 (00:47→16:42)
[2022-09-29] MEDS: DOCUSATE SODIUM 100 MG CAPSULE (FP) PO SCH ×4 (01:36→21:18)
[2022-09-29] MEDS: CEFAZOLIN SODIUM 2 GM in DEXTROSE 5%-WATER 100 ML IVPB SCH ×3 (01:37→17:27)
[2022-09-29] MEDS: GABAPENTIN 100 MG CAPSULE PO SCH ×3 (05:25→21:18)
[2022-09-29] MEDS: AMINO ACIDS/PROTEIN HYDROLYS 30 ML LIQUID.PKT PO SCH (08:57)
[2022-09-29] MEDS: MULTIVITAMINS (DAILY MVI) TABLET (FP) PO SCH (08:59)
[2022-09-29] MEDS: ASCORBIC ACID 250 MG TABLET (FP) PO SCH (08:59)
[2022-09-29] MEDS: ZINC SULFATE 220 MG CAPSULE (FP) PO SCH (08:59)
[2022-09-29] MEDS: ENOXAPARIN NA (PORCINE) 40 MG/0.4 ML DISP.SYRIN SQ SCH (09:00)
[2022-09-29] MEDS: POLYETHYLENE GLYCOL (HEALTHYLAX) 3350 17 GM PACKET PO SCH (09:00)
[2022-09-29] MEDS: busPIRone HCL 5 MG TABLET PO SCH ×2 (09:00→21:19)
[2022-09-29] MEDS: PANTOPRAZOLE SODIUM 40 MG VIAL IVPUSH SCH (09:00)
[2022-09-29] MEDS: LISINOPRIL 20 MG TABLET PO SCH (09:11)
[2022-09-29] MEDS: amLODIPine BESYLATE 10 MG TABLET (FP) PO SCH (09:11)
[2022-09-29 09:30] LABS: HEMATOCRIT 35.2 % (32.4-45.2); HEMOGLOBIN 11.3 GM/dL (10.7-15.3); MCH 28.2 pg (25.7-33.7); MCHC 32.2 g/dl (32.0-36.0); MEAN CELL VOLUME 87.4 fl (80-96); MEAN PLT VOLUME 7.5 fl (7.5-11.1); PLATELET COUNT 479 10^3/uL (134-434); RBC 4.03 M/mm3 (3.60-5.2); RDW 18.9 % (11.6-15.6); WHITE BLOOD COUNT 6.6 K/mm3 (4.0-10.0)
[2022-09-29 10:04] LABS: CALCIUM 9.4 mg/dL (8.5-10.1)
[2022-09-29 10:05] LABS: ALBUMIN 2.7 g/dl (3.4-5.0)
[2022-09-29 10:08] LABS: CREATININE 0.6 mg/dL (0.55-1.3); PHOSPHOROUS 3.3 mg/dL (2.5-4.9)
[2022-09-29 10:09] LABS: BILIRUBIN,TOTAL 0.3 mg/dL (0.2-1); TOT PROT 6.4 g/dl (6.4-8.2)
[2022-09-29] MEDS: oxyCODONE HCL 5 MG TABLET PO PRN ×2 (10:17→21:19)
[2022-09-29] MEDS: ONDANSETRON 4 MG/2 ML VIAL IVPUSH SCH ×3 (10:19→21:16)
[2022-09-29] MEDS: traZODone HCL 50 MG TABLET (FP) PO SCH (21:16)
[2022-09-29] MEDS: MIRTAZAPINE 15 MG TABLET (FP) PO SCH (21:17)
[2022-09-29] MEDS: ATORVASTATIN CA 40 MG TABLET (FP) PO SCH (21:18)
[2022-09-29] MEDS: MELATONIN 5 MG TABLETS PO SCH (21:18)
[2022-09-30] MEDS ORDERED: CEFAZOLIN SODIUM 2 GM VIAL ONE (00:44)
[2022-09-30] MEDS: CEFAZOLIN SODIUM 2 GM in DEXTROSE 5%-WATER 100 ML IVPB SCH ×2 (02:38→09:10)
[2022-09-30] MEDS: ACETAMINOPHEN 500 MG TABLET (FP) PO SCH ×2 (02:39→09:11)
[2022-09-30] MEDS: ONDANSETRON 4 MG/2 ML VIAL IVPUSH SCH ×3 (03:00→14:18)
[2022-09-30] MEDS: oxyCODONE HCL 5 MG TABLET PO PRN ×2 (06:06→14:18)
[2022-09-30] MEDS: GABAPENTIN 100 MG CAPSULE PO SCH ×2 (06:07→14:18)
[2022-09-30] MEDS: DOCUSATE SODIUM 100 MG CAPSULE (FP) PO SCH ×2 (06:07→14:18)
[2022-09-30] MEDS: PANTOPRAZOLE SODIUM 40 MG VIAL IVPUSH SCH (09:10)
[2022-09-30] MEDS: POLYETHYLENE GLYCOL (HEALTHYLAX) 3350 17 GM PACKET PO SCH (09:10)
[2022-09-30] MEDS: ZINC SULFATE 220 MG CAPSULE (FP) PO SCH (09:11)
[2022-09-30] MEDS: AMINO ACIDS/PROTEIN HYDROLYS 30 ML LIQUID.PKT PO SCH (09:11)
[2022-09-30] MEDS: LISINOPRIL 20 MG TABLET PO SCH (09:12)
[2022-09-30] MEDS: busPIRone HCL 5 MG TABLET PO SCH (09:12)
[2022-09-30] MEDS: MULTIVITAMINS (DAILY MVI) TABLET (FP) PO SCH (09:12)
[2022-09-30] MEDS: amLODIPine BESYLATE 10 MG TABLET (FP) PO SCH (09:12)
[2022-09-30] MEDS: ASCORBIC ACID 250 MG TABLET (FP) PO SCH (09:12)
[2022-09-30] MEDS: ENOXAPARIN NA (PORCINE) 40 MG/0.4 ML DISP.SYRIN SQ SCH (09:12)
[2022-09-30 11:09] VITALS: RESP 18
[2022-09-30 14:59] VITALS: BP 112/54; PULSE 76; TEMP 98.3
== END 2022-09-30 16:42 | DRG 181 ==
LOC: JER 17:22 → JERBED 17:56 → JICU 08-11 21:37 → J6S 08-29 12:12
PROVIDERS: ADMIT Internal Medicine; ATTEND Internal Medicine
PROC: 04CL0ZZ Extirpation of Matter from Left Femoral Artery, Open Approach (ICD-10-PCS; 2022-08-11)
PROC: 047L0Z1 Dilation of Left Femoral Artery using Drug-Coated Balloon, Open Approach (ICD-10-PCS; 2022-08-11)
PROC: 04CN0ZZ Extirpation of Matter from Left Popliteal Artery, Open Approach (ICD-10-PCS; 2022-08-11)
PROC: 30233N1 Transfusion of Nonautologous Red Blood Cells into Peripheral Vein, Percutaneous Approach (ICD-10-PCS; 2022-08-11)
PROC: 04CL0ZZ Extirpation of Matter from Left Femoral Artery, Open Approach (ICD-10-PCS; 2022-08-14)
PROC: 04CN0ZZ Extirpation of Matter from Left Popliteal Artery, Open Approach (ICD-10-PCS; 2022-08-14)
PROC: 3E05317 Introduction of Other Thrombolytic into Peripheral Artery, Percutaneous Approach (ICD-10-PCS; 2022-08-14)
PROC: 047 Lower Arteries, Dilation (ICD-10-PCS; 2022-08-14)
PROC: B41DZZZ Fluoroscopy of Aorta and Bilateral Lower Extremity Arteries (ICD-10-PCS; 2022-08-14)
PROC: 04CL0ZZ Extirpation of Matter from Left Femoral Artery, Open Approach (ICD-10-PCS; 2022-08-17)
PROC: 04CN0ZZ Extirpation of Matter from Left Popliteal Artery, Open Approach (ICD-10-PCS; 2022-08-17)
PROC: 3E05317 Introduction of Other Thrombolytic into Peripheral Artery, Percutaneous Approach (ICD-10-PCS; 2022-08-17)
PROC: 047 Lower Arteries, Dilation (ICD-10-PCS; 2022-08-17)
PROC: 3E05317 Introduction of Other Thrombolytic into Peripheral Artery, Percutaneous Approach (ICD-10-PCS; 2022-08-17)
PROC: B41DZZZ Fluoroscopy of Aorta and Bilateral Lower Extremity Arteries (ICD-10-PCS; 2022-08-22)
PROC: 0J9P0ZZ Drainage of Left Lower Leg Subcutaneous Tissue and Fascia, Open Approach (ICD-10-PCS; 2022-09-09)
PROC: 0Y6D0Z3 Detachment at Left Upper Leg, Low, Open Approach (ICD-10-PCS; principal; 2022-09-11 11:00)
PROC: 04WY0JZ Revision of Synthetic Substitute in Lower Artery, Open Approach (ICD-10-PCS; 2022-09-21)
PROC: 02HV33Z Insertion of Infusion Device into Superior Vena Cava, Percutaneous Approach (ICD-10-PCS; 2022-09-30)
DX: I70.4 Atherosclerosis of autologous vein bypass graft(s) of the extremities (principal); T82.868A Thrombosis due to vascular prosthetic devices, implants and grafts, initial encounter; T81.49XA Infection following a procedure, other surgical site, initial encounter; Y83.9 Surgical procedure, unspecified as the cause of abnormal reaction of the patient, or of later complication, without mention of misadventure at the time of the procedure; U07.1 COVID-19; A41.9 Sepsis, unspecified organism; D62 Acute posthemorrhagic anemia; I82.402 Acute embolism and thrombosis of unspecified deep veins of left lower extremity; I96 Gangrene, not elsewhere classified; L02.416 Cutaneous abscess of left lower limb; I87.8 Other specified disorders of veins; I10 Essential (primary) hypertension; E78.5 Hyperlipidemia, unspecified; A49.01 Methicillin susceptible Staphylococcus aureus infection, unspecified site; E86.0 Dehydration; E87.0 Hyperosmolality and hypernatremia
CPT/HCPCS: 0241U-QW; 36415; 36430; 36569; 71045-TC-FY; 73701-TC-RT; 75635-TC; 76000-TC-FY; 80048; 80053; 81003; 83605; 83735; 84100; 85025; 85027; 85384; 85610; 85651; 85730; 86140; 86850; 86900; 86901; 86922; 87040; 87070; 87086; 87186; 87205; 88300-TC; 88304-TC; 88307-TC; 88311-TC; 93005; 93010; 94010; 94760; 97116-GP; 97162-GP; 99285-25; C1725; C1757; C1760; C1769; C1887; C9803-CS; G0480; J1644; J2997; P9058; Q9967; U0003; U0005

== ENCOUNTER 2024-05-23 21:02 | Inpatient (IN) | payer OTHER ==
[2024-05-23] MEDS ORDERED: MORPHINE SULFATE 2 MG/ML SYRINGE ONE (22:25)
[2024-05-23] MEDS: morphine CARPU-JECT 2 MG/1 ML DISP.SYRIN IVPUSH ONE (22:31)
[2024-05-23 22:32] LABS: BASO % 0.3 % (0-2.0); EOS % 0.6 % (0-4.5); HEMATOCRIT 38.2 % (32.4-45.2); LYMPH % 21.5 % (8-40); MCH 29.7 pg (25.7-33.7); MEAN CELL VOLUME 87.3 fl (80-96); MEAN PLT VOLUME 7.4 fl (7.5-11.1); MONO % 7.3 % (3.8-10.2); NEUT % 70.3 % (42.8-82.8); PLATELET COUNT 313 10^3/uL (134-434); RBC 4.37 M/mm3 (3.60-5.2); WHITE BLOOD COUNT 11.2 K/mm3 (4.0-10.0)
[2024-05-23 22:38] LABS: INR 1.03 (0.83-1.09); PROTHROMBIN TIME (PATIENT) 11.6 SEC (9.7-13.0)
[2024-05-23 22:41] LABS: ACTIVATED PTT 31.3 SECONDS (25.2-36.5)
[2024-05-23 22:49] LABS: POTASSIUM 3.9 mmol/L (3.5-5.1)
[2024-05-23 22:52] LABS: ALBUMIN 3.3 g/dl (3.4-5.0); BLOOD UREA NITROGEN 18.7 mg/dL (7-18); CALCIUM 9.2 mg/dL (8.5-10.1)
[2024-05-23 22:56] LABS: BILIRUBIN,TOTAL 0.3 mg/dL (0.2-1); CREATININE 0.8 mg/dL (0.55-1.3)
[2024-05-24] MEDS ORDERED: MORPHINE SULFATE 2 MG/ML SYRINGE ONE ×2 (02:49→07:47)
[2024-05-24] MEDS ORDERED: ceFAZolin SODIUM 1 GM VIAL ONE ×3 (02:49→17:47)
[2024-05-24] MEDS: morphine CARPU-JECT 4 MG/1 ML DISP.SYRIN IVPUSH PRN (03:01)
[2024-05-24] MEDS: CEFAZOLIN 1 GM in DEXTROSE 5%-WATER - 50 ML IVPB SCH (03:02)
[2024-05-24 06:17] LABS: BASO % 0.3 % (0-2.0); EOS % 0.6 % (0-4.5); HEMATOCRIT 37.7 % (32.4-45.2); HEMOGLOBIN 12.7 GM/dL (10.7-15.3); LYMPH % 21.4 % (8-40); MCH 29.6 pg (25.7-33.7); MCHC 33.7 g/dl (32.0-36.0); MEAN CELL VOLUME 87.9 fl (80-96); MEAN PLT VOLUME 7.2 fl (7.5-11.1); MONO % 8.2 % (3.8-10.2); NEUT % 69.5 % (42.8-82.8); PLATELET COUNT 296 10^3/uL (134-434); RBC 4.29 M/mm3 (3.60-5.2); RDW 15.4 % (11.6-15.6); WHITE BLOOD COUNT 10.4 K/mm3 (4.0-10.0)
[2024-05-24 06:34] LABS: POTASSIUM 3.8 mmol/L (3.5-5.1)
[2024-05-24 06:38] LABS: ALBUMIN 3.3 g/dl (3.4-5.0); BLOOD UREA NITROGEN 14.8 mg/dL (7-18); CALCIUM 9.7 mg/dL (8.5-10.1)
[2024-05-24 06:41] LABS: CREATININE 0.7 mg/dL (0.55-1.3); PHOSPHOROUS 3.6 mg/dL (2.5-4.9)
[2024-05-24 06:42] LABS: BILIRUBIN,TOTAL 0.4 mg/dL (0.2-1); TOT PROT 6.9 g/dl (6.4-8.2)
[2024-05-24 06:58] LABS: EPI CELLS 14 /uL (0-25.1); HYALINE CASTS 1 /uL (0-3.1); PH,URINE 5.5 (5.0-8.0); URINE APPEARANCE CLEAR; URINE BACTERIA 79 /uL (0-1359); URINE BILIRUBIN NEGATIVE (NEGATIVE); URINE COLOR YELLOW; URINE GLUCOSE (UA) NEGATIVE (NEGATIVE); URINE KETONE NEGATIVE (NEGATIVE); URINE LEUK ESTERASE 2+ (NEGATIVE); URINE NITRITE NEGATIVE (NEGATIVE); URINE PROTEIN NEGATIVE (NEGATIVE); URINE RBC 8 /uL (0-23.9); URINE UROBILINOGEN 0.2 mg/dL (0.2-1.0); URINE WBC 84 /uL (0-25.8)
[2024-05-24] MEDS ORDERED: ACETAMINOPHEN INJECTION 100 ML IVPB ONE (07:16)
[2024-05-24] MEDS: ACETAMINOPHEN 1000 MG/100 ML BAG IVPB PRN (07:24)
[2024-05-24] MEDS: PATIENT'S OWN MEDICATION (NON-FORMULARY) (Losartan/Hydrochlorothiazide [Losartan-Hctz 100- PO SCH (08:00)
[2024-05-24] MEDS ORDERED: busPIRone HCL 5 MG TABLET ONE (10:49)
[2024-05-24] MEDS ORDERED: GABAPENTIN 300 MG CAPSULE ONE (10:49)
[2024-05-24] MEDS ORDERED: amLODIPine BESYLATE 10 MG TABLET (FP) ONE (10:50)
[2024-05-24] MEDS ORDERED: ATORVASTATIN CA 80 MG TABLET (FP) ONE (10:50)
[2024-05-24] MEDS: ATORVASTATIN CA 40 MG TABLET (FP) PO SCH (11:08)
[2024-05-24] MEDS: amLODIPine BESYLATE 10 MG TABLET (FP) PO SCH (11:08)
[2024-05-24] MEDS: GABAPENTIN 300 MG CAPSULE PO SCH (11:08)
[2024-05-24] MEDS: busPIRone HCL 5 MG TABLET PO SCH (11:08)
[2024-05-24] MEDS: LACTATED RINGERS SOLUTION 1,000 ML/1,000 ML INFUS.BAG IV SCH (11:09)
[2024-05-24] MEDS: ONDANSETRON 4 MG/2 ML VIAL IVPB PRN (12:00)
[2024-05-24] MEDS ORDERED: ONDANSETRON 4 MG/2 ML VIAL ONE (12:11)
[2024-05-24 14:40] VITALS: BMI 29.2
[2024-05-24] MEDS ORDERED: oxyCODONE HCL 5 MG TABLET PO PRN ×2 (17:37)
[2024-05-24] MEDS ORDERED: PROPOFOL 20 ML ONE ×2 (17:41→17:51)
[2024-05-24] MEDS ORDERED: MIDAZOLAM HCL 2 MG/2 ML SINGLE DOSE VIAL ONE (17:41)
[2024-05-24] MEDS ORDERED: LACTATED RINGERS SOLUTION 1,000 ML IV SCH (17:45)
[2024-05-24] MEDS: LIDOCAINE HCL 1%, 10 MG/ML (20ML VIAL) INF ONE ×2 (17:48)
[2024-05-24] MEDS: ceFAZolin SODIUM 1 GM VIAL IVPB ONE (17:48)
[2024-05-24] MEDS ORDERED: ACETAMINOPHEN 1000 MG/100 ML BAG IVPB PRN (18:55)
[2024-05-24] MEDS ORDERED: HYDROmorphone HCL CARPU-JECT 2 MG/1 ML DISP.SYRIN ONE (19:25)
[2024-05-24 20:42] VITALS: RESP 18
[2024-05-24] MEDS ORDERED: HYDROmorphone HCl 2 MG/ML VIAL IVPUSH ONE (21:01)
[2024-05-24] MEDS: oxyCODONE HCL 5 MG TABLET PO PRN (22:04)
[2024-05-25] MEDS: CEFAZOLIN 1 GM in DEXTROSE 5%-WATER - 50 ML IVPB SCH (01:35)
[2024-05-25] MEDS: oxyCODONE HCL 5 MG TABLET PO PRN (03:18)
[2024-05-25 08:40] LABS: BASO % 0.2 % (0-2.0); EOS % 0.5 % (0-4.5); HEMATOCRIT 35.8 % (32.4-45.2); HEMOGLOBIN 12.2 GM/dL (10.7-15.3); LYMPH % 20.4 % (8-40); MCH 29.9 pg (25.7-33.7); MCHC 34.2 g/dl (32.0-36.0); MEAN CELL VOLUME 87.5 fl (80-96); MEAN PLT VOLUME 7.3 fl (7.5-11.1); MONO % 8.4 % (3.8-10.2); NEUT % 70.5 % (42.8-82.8); PLATELET COUNT 264 10^3/uL (134-434); RBC 4.09 M/mm3 (3.60-5.2); RDW 15.4 % (11.6-15.6); WHITE BLOOD COUNT 8.3 K/mm3 (4.0-10.0)
[2024-05-25 08:51] LABS: CALCIUM 8.8 mg/dL (8.5-10.1); POTASSIUM 3.8 mmol/L (3.5-5.1)
[2024-05-25 08:52] LABS: BLOOD UREA NITROGEN 11.6 mg/dL (7-18)
[2024-05-25 08:55] LABS: CREATININE 0.8 mg/dL (0.55-1.3)
[2024-05-25] MEDS: ENOXAPARIN NA (PORCINE) 40 MG/0.4 ML DISP.SYRIN SQ SCH (09:19)
[2024-05-25] MEDS: amLODIPine BESYLATE 10 MG TABLET (FP) PO SCH (09:19)
[2024-05-25] MEDS: ATORVASTATIN CA 80 MG TABLET (FP) PO SCH (09:19)
[2024-05-25] MEDS: GABAPENTIN 300 MG CAPSULE PO SCH (09:19)
[2024-05-25] MEDS: busPIRone HCL 5 MG TABLET PO SCH (09:20)
[2024-05-25] MEDS: LOSARTAN 50MG/HCTZ 12.5MG 1 TAB PO SCH (09:21)
[2024-05-25] MEDS ORDERED: ENOXAPARIN NA (PORCINE) 40 MG/0.4 ML DISP.SYRIN SQ SCH (10:00)
[2024-05-25] MEDS ORDERED: LOSARTAN 50MG/HCTZ 12.5MG 1 TAB PO SCH ×2 (10:00)
[2024-05-25] MEDS ORDERED: oxyCODONE HCL 5 MG TABLET PO PRN (12:04)
[2024-05-25] MEDS: KETOROLAC TROMETHAMINE 15 MG/ML VIAL IVPUSH ONE (12:40)
[2024-05-25] MEDS: ONDANSETRON 4 MG/2 ML VIAL IVPB PRN (15:18)
[2024-05-26 09:59] LABS: HEMATOCRIT 35.2 % (32.4-45.2); MCHC 34.2 g/dl (32.0-36.0); MEAN CELL VOLUME 87.6 fl (80-96); PLATELET COUNT 242 10^3/uL (134-434); RBC 4.02 M/mm3 (3.60-5.2); RDW 15.4 % (11.6-15.6); WHITE BLOOD COUNT 9.3 K/mm3 (4.0-10.0)
[2024-05-26 10:22] LABS: POTASSIUM 3.9 mmol/L (3.5-5.1)
[2024-05-26 10:25] LABS: CALCIUM 9.3 mg/dL (8.5-10.1)
[2024-05-26 10:26] LABS: ALBUMIN 3.1 g/dl (3.4-5.0); BLOOD UREA NITROGEN 10.4 mg/dL (7-18)
[2024-05-26 10:29] LABS: CREATININE 0.8 mg/dL (0.55-1.3)
[2024-05-26 10:30] LABS: BILIRUBIN,TOTAL 0.6 mg/dL (0.2-1)
[2024-05-26 10:31] LABS: TOT PROT 6.7 g/dl (6.4-8.2)
[2024-05-26] MEDS: LACTATED RINGERS SOLUTION 1,000 ML IV SCH (18:57)
[2024-05-26] MEDS ORDERED: IBUPROFEN 600 MG TABLET (FP) PO PRN (19:59)
[2024-05-26] MEDS: ACETAMINOPHEN 325 MG TABLET (FP) PO SCH (21:21)
[2024-05-27] MEDS: oxyCODONE HCL 5 MG TABLET PO PRN (00:56)
[2024-05-27] MEDS: MELATONIN 5 MG TABLETS PO ONE (11:59)
[2024-05-27] MEDS: CEFAZOLIN 1 GM in DEXTROSE 5%-WATER - 50 ML IVPB SCH (18:11)
[2024-05-27] MEDS: GABAPENTIN 400 MG CAPSULE PO SCH (21:14)
[2024-05-28] MEDS ORDERED: IBUPROFEN 600 MG TABLET (FP) PO SCH (08:45)
[2024-05-28 09:57] LABS: HEMATOCRIT 37.1 % (32.4-45.2); HEMOGLOBIN 12.9 GM/dL (10.7-15.3); MCH 30.3 pg (25.7-33.7); MCHC 34.9 g/dl (32.0-36.0); MEAN CELL VOLUME 86.8 fl (80-96); MEAN PLT VOLUME 7.4 fl (7.5-11.1); PLATELET COUNT 297 10^3/uL (134-434); RBC 4.27 M/mm3 (3.60-5.2); RDW 15.6 % (11.6-15.6); WHITE BLOOD COUNT 5.7 K/mm3 (4.0-10.0)
[2024-05-28 09:57] LABS: POTASSIUM 4.2 mmol/L (3.5-5.1)
[2024-05-28 10:08] LABS: ALBUMIN 3.2 g/dl (3.4-5.0); BLOOD UREA NITROGEN 15.3 mg/dL (7-18)
[2024-05-28 10:09] LABS: CALCIUM 9.7 mg/dL (8.5-10.1)
[2024-05-28 10:12] LABS: CREATININE 0.9 mg/dL (0.55-1.3)
[2024-05-28 10:13] LABS: PHOSPHOROUS 3.4 mg/dL (2.5-4.9)
[2024-05-28 10:14] LABS: BILIRUBIN,TOTAL 0.5 mg/dL (0.2-1); TOT PROT 7.1 g/dl (6.4-8.2)
[2024-05-28 10:16] LABS: MAGNESIUM 2.3 mg/dL (1.8-2.4)
[2024-05-28] MEDS: oxyCODONE HCL 5 MG TABLET PO PRN (10:21)
[2024-05-28] MEDS: IBUPROFEN 600 MG TABLET (FP) PO SCH (14:35)
[2024-05-28 14:41] VITALS: BP 110/62; PULSE 74; TEMP 97.1
== END 2024-05-28 17:45 | disposition home or self-care (01) | DRG 349 ==
LOC: JER 21:02 → JERBED 23:03 → J6S 05-24 13:42
PROVIDERS: ADMIT Internal Medicine; ATTEND Internal Medicine
PROC: 0J9M0ZX Drainage of Left Upper Leg Subcutaneous Tissue and Fascia, Open Approach, Diagnostic (ICD-10-PCS; 2024-05-24)
PROC: 0YPB0JZ Removal of Synthetic Substitute from Left Lower Extremity, Open Approach (ICD-10-PCS; principal; 2024-05-24 19:00)
DX: T87.44 Infection of amputation stump, left lower extremity (principal); T82.7XXA Infection and inflammatory reaction due to other cardiac and vascular devices, implants and grafts, initial encounter; I73.9 Peripheral vascular disease, unspecified; E78.00 Pure hypercholesterolemia, unspecified; I10 Essential (primary) hypertension; Y83.8 Other surgical procedures as the cause of abnormal reaction of the patient, or of later complication, without mention of misadventure at the time of the procedure; D72.829 Elevated white blood cell count, unspecified; L02.416 Cutaneous abscess of left lower limb; B95.61 Methicillin susceptible Staphylococcus aureus infection as the cause of diseases classified elsewhere; Z89.612 Acquired absence of left leg above knee
CPT/HCPCS: 36415; 71045-TC-FY; 80048; 80053; 81003; 83735; 84100; 85025; 85027; 85610; 85730; 86850; 86900; 86901; 87070; 87186; 87205; 93005; 93010; 94760; 99285-25; J0131